=== PATIENT | female | born 1955 | race Caucasian/White ===

== ENCOUNTER 2024-01-24 11:21 | Outpatient (REF) | payer MEDICARE, MEDICAID, SELFPAY | END 2024-01-24 11:22 | disposition home or self-care (01) | LOC: HO.LAB 11:21 | PROVIDERS: PCP Physician Assistant Medical; Visit Provider Nurse Practitioner Family | DX: N39.0 Urinary tract infection, site not specified (principal); R32 Unspecified urinary incontinence; R39.9 Unspecified symptoms and signs involving the genitourinary system | CPT/HCPCS: 51798; 81003; 87086; 99202 ==

== ENCOUNTER 2024-01-24 11:21 | Outpatient (AMB) | payer MEDICARE, MEDICAID, SELFPAY ==
--- NOTE | 2024-01-24 11:24 | A.OFFVIS_ITS ---
Intake Intake Visit Reasons: mixed incontinence Intake Note: NEW Patient presents today to established treatment for: Mixed Incontinence Meds- Mirbetriq Allergies to Antibiotic- No Known Allergies Blood Thinner- None Post Void Residual: 60ml Patient Symptoms: Patient stated she had a mesh sling about 10 years ago. 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 Page. She has a past medical history of hyperlipidemia, schizophrenia, atopic dermatitis, anemia, obesity, type 2 diabetes, GERD, hypertension, Alzheimer's, and major neurocognitive disorder. She presents to the office today as a new patient to establish urology care. She discusses having followed up with a urologist out in [place] however has recently moved to [place] at the [facility] and would like to establish urology care here in [place]. In review of patient's MAR it appears patient is on 25 mg of Myrbetriq daily however in discussion with the patient today she is unsure as to how long she has been on this medication. She reports initially starting medication due to lower urinary tract symptoms of urinary urgency and frequency. She currently denies any bothersome urinary issues or concerns. In office urinalysis results reviewed with the patient today 2+ leukocytes negative nitrates PVR 60 mL. She currently denies any UTI like symptoms. She denies urinary urgency, urinary frequency, incontinence, nocturia, hematuria, dysuria, foul smelling urine, changes to urinary stream, flank pain, fever, and or chills. She is happy with her current voiding parameters. Discussed at length potential causes for lower urinary tract symptoms. Discussed affects of diabetes on the bladder. She otherwise offers offers no other issues or concerns at this time. [facility] Medical History Hyperlipidemia Schizophreniform disorder Atopic dermatitis Anemia Obesity Type 2 diabetes mellitus Gastroesophageal reflux disease without esophagitis Primary hypertension Alzheimer's dementia Major neurocognitive disorder Review of Systems Const Reports no additional complaints Physical Exam Const General: cooperative, comfortable, no acute distress, well developed, alert and awake Nutritional Appearance: overweight Orientation/consciousness: patient oriented x3 Limitations: no limitations HEENT Head: Yes normal to inspection, Yes normocephalic and Yes atraumatic Ears: hearing grossly normal bilaterally Eyes General: appearance normal, both eyes and all related structures Neck Neck: Yes normal visual inspection and Yes trachea midline Chest Chest palpation & inspection: normal inspection of the chest Resp Effort & Inspection: normal respiratory effort and able to speak in complete sentences Cardio Rate: regular rate GI Inspection: Yes normal to inspection General: Yes no CVA tenderness Back/Spine/Pelvis Back: no CVA tenderness Skin General skin exam: no rashes or lesions noted Neuro General: patient oriented x3 Extrem General: Yes normal to inspection Psych Appearance: grossly normal and well kempt Mental Status: other (Patient slow to respond at times) Speech and movement: Clear speech present Affect: normal affect Attitude: cooperative Thought process: Normal thought process present Thought content: Normal thought content present Insight: Fair insight present (Psych) Judgement: Fair judgement present (Psych) Office Procedures Post Void Residual Post Residual Void Post Void Residual (PVR): 60 [id number]-[id number] Void Residual by ultrasound Results AMB Urinalysis, Automated UA Leukoctes 125 Dari/uL Last Edit by Estee Riley CMA on 01/24/24 11:44 UA Nitrite Negative Last Edit by Estee Riley CMA on 01/24/24 11: 44 UA Urobilinogen 0.2 mg/dL Last Edit by Estee Riley CMA on 4 11:44 UA Protein 30 mg/dL Last Edit by Estee Riley CMA on 01/24/24 11:4 4 UA pH 6.0 Last Edit by Estee Riley CMA on 01/24/24 11:44 UA Blood 0 Bennett/uL Last Edit by Estee Riley CMA on 01/24/24 11:44 UA Specific Wells 1.025 Last Edit by Estee Riley CMA on 11:44 UA Ketone Negative Last Edit by Estee Riley CMA on 01/24/24 11:4 4 UA Bilirubin 0 mg/dL Last Edit by Estee Riley CMA on 01/24/24 11: 44 UA Glucose 500 mg/dL Last Edit by Estee Riley CMA on 01/24/24 11: 44 Results Reviewed Results Reviewed: Laboratory Last Values Urine pH (Auto) 6.0 01/24/24 11:42 Specific Wells (Auto) 1.025 01/24/24 11:42 Urine Protein (Auto) 30 mg/dL 01/24/24 11:42 Glucose (UA)(Auto) 500 mg/dL 01/24/24 11:42 Urine Ketones (Auto) Negative 01/24/24 11:42 Urine Blood (Auto) 0 Bennett/uL 01/24/24 11:42 Urine Nitrite (Auto) Negative 01/24/24 11:42 Urine Bilirubin (Auto) 0 mg/dL 01/24/24 11:42 Urine Urobilinogen (Auto) 0.2 mg/dL 01/24/24 11:42 Leukocyte Esterase (Auto) 125 Dari/uL 01/24/24 11:42 Assessment & Plan Assessment & Plan (1) Lower urinary tract symptoms: Code(s): R39.9 - Unspecified symptoms and signs involving the genitourinary system Plan In office urinalysis results reviewed with the patient today; as noted above; will send for urine culture PVR 60 mL. Patient currently denies any bothersome urinary issues or concerns. Patient reports be happy with current voiding parameters at this time on 25 mg of Myrbetriq; will continue. Discussed obtaining retroperitoneal ultrasound for further assessment evaluation. Discussed at length potential causes for lower urinary tract symptoms. Discussed and stressed the importance of managing diabetes for improvement in lower urinary tract symptoms as well as overall health and well-being. Will attempt to obtain previous urology records for continuity of care. Follow-up in 3 months with imaging to be completed prior and PVR at next office visit; or sooner with any issues, concerns, and or questions. Orders: Orders Urine Culture Today N39.0 - Urinary tract infection, site not specified US retroperitoneal comp Today R39.9 - Unspecified symptoms and signs involving the genitourinary system AMB Urinalysis Automated Today R33.9 - Retention of urine, unspecified AMB Post Void Residual by ultrasound Today R33.9 - Retention of urine, unspecified Patient Instructions: The patient had an opportunity to ask questions regarding the treatment plan. All questions were answered. Physical exam, labs, and imaging were discussed and reviewed in detail. As well as risks, benefits, and discussion of treatment choices. No major barriers to understanding were identified. The patient expressed understanding and agreement with the above treatment plan. The patient was made aware they should contact our office by phone for worsening of their current condition, the appearance of new symptoms, or with any questions or concerns. Compliance is encouraged with any medications and follow up testing that is ordered. It is a privilege to be allowed the opportunity to participate in? your urological care.? Again, if you have any questions or concerns If you have any questions or concerns please do not hesitate to contact me. The office is [phone]. This note is constructed using voice recognition software. While every effort has been made to ensure accuracy title i assistant errors may have been included. Yours sincerely, NYDIA Jones Coding Level of Care Code New Pt Level 4 (96555) Diagnoses Lower urinary tract symptoms R39.9 CPT Codes Post Residual Void - PVR CPT Code: 93859-Kaeg Void Residual by ultrasound ([id number]) Time Spent (min) 30
== END 2024-01-24 12:03 | disposition home or self-care (01) ==
PROVIDERS: PCP Physician Assistant Medical; Visit Provider Nurse Practitioner Family
DX: R39.9 Unspecified symptoms and signs involving the genitourinary system (principal)
CPT/HCPCS: 99204

== ENCOUNTER 2024-04-05 09:48 | Outpatient (REF) | payer MEDICARE, MEDICAID, SELFPAY ==
--- NOTE | ~2024-04-05 | US_ITS ---
EXAMINATION: US RETROPERITONEAL COMPLETE (RENAL) CLINICAL INFORMATION: Lower urinary tract symptoms. COMPARISON: None available. TECHNIQUE: Real-time imaging of the kidneys and bladder. FINDINGS: RIGHT KIDNEY: 10.2 x 4.8 x 5.0 cm (SAG x AP x TRV). The kidney is normal in size, contour, and echogenicity. Renal cortical thickness is normal. No renal calculi or hydronephrosis. A benign mid renal 2.6 cm Bosniak class I renal cyst is noted which requires no additional imaging or follow up. No solid renal masses are seen. LEFT KIDNEY: 10.7 x 5.6 x 3.7 cm (SAG x AP x TRV). The kidney is normal in size, contour, and echogenicity. Renal cortical thickness is normal. No calculi or focal parenchymal lesions. No hydronephrosis. BLADDER: Well distended and normal. Bilateral ureteral jets are demonstrated. Prevoid bladder volume is 621 mL. Postvoid bladder volume is 126 mL. Incidental note made of an echogenic liver consistent with hepatic steatosis. US/US retroperitoneal comp IMPRESSION: 1. Large postvoid residual. 2. Incidentally noted hepatic steatosis.
== END 2024-04-05 09:49 | disposition home or self-care (01) ==
LOC: HO.US 09:48
PROVIDERS: PCP Physician Assistant Medical; Visit Provider Nurse Practitioner Family
DX: R39.9 Unspecified symptoms and signs involving the genitourinary system (principal)
CPT/HCPCS: 76770

== ENCOUNTER 2024-04-24 09:28 | Outpatient (AMB) | payer MEDICARE, MEDICAID, SELFPAY ==
--- NOTE | 2024-04-24 10:21 | A.OFFVIS_ITS ---
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 Page. She has a past medical history of hyperlipidemia, schizophrenia, atopic dermatitis, anemia, obesity, type 2 diabetes, GERD, hypertension, Alzheimer's, and major neurocognitive disorder. She presents to the office today for follow- up. Of note, patient was seen approximately 3 months ago as a new patient to establish urology care at which time a retroperitoneal ultrasound was ordered for further assessment evaluation. These results were reviewed with the patient today. Bilateral kidneys with no renal calculi or hydronephrosis noted. Right kidney with benign mid 2.6 cm Bosniak class 1 renal cyst which requires no imaging follow up per radiology report. The bladder is well distended and normal. Bladder jets are demonstrated. Pre void bladder volume is approximately 620 mL. Postvoid bladder volume is approximately 130 mL. In discussion with the patient today she reports to be doing and feeling well. She reports to be happy with her current voiding parameters on 25 mg of Myrbetriq. She reports previously she had been experiencing lower urinary tract symptoms of urinary urgency and frequency however feels she has had no bothersome urinary issues since her last office visit here 3 months ago. When asked she denies urinary urgency, urinary frequency, incontinence, nocturia, hematuria, dysuria, foul smelling urine, changes to urinary stream, flank pain, fever, and or chills. In office urinalysis results reviewed with the patient today. PVR 0 mL. She is happy with her current voiding parameters. Discussed affects of diabetes on the bladder/lower urinary tract symptoms and overall health and well-being. She otherwise offers offers no other issues or concerns at this time. [facility] Medical History Hyperlipidemia Schizophreniform disorder Atopic dermatitis Anemia Obesity Type 2 diabetes mellitus Gastroesophageal reflux disease without esophagitis Primary hypertension Alzheimer's dementia Major neurocognitive disorder Review of Systems Const Reports no additional complaints Eyes Reports no additional complaints ENT Reports no additional complaints Card Reports as per HPI Resp Reports no additional complaints GI Reports as per HPI Reports as per HPI Musc Reports no additional complaints Skin/Breast Reports as per HPI Neuro Reports as per HPI Psych Reports as per HPI Endo Reports as per HPI Jimi/Lymph Reports no additional complaints Aller/Immun Reports no additional complaints Office Procedures Post Void Residual Post Residual Void Post Void Residual (PVR): 0 [id number] Void Residual by ultrasound Results AMB Urinalysis, Automated UA Leukoctes 15 Dari/uL Last Edit by María Andrews on 04/24/24 10:44 UA Nitrite Negative Last Edit by María Andrews on 04/24/24 10:44 UA Urobilinogen 0.2 mg/dL Last Edit by María Andrews on 04/24/24 10:44 UA Protein 15 mg/dL Last Edit by YouBeQBlety Andrews on 04/24/24 10:44 UA pH 5.5 Last Edit by María Andrews on 04/24/24 10:44 UA Blood 0 Bennett/uL Last Edit by María Andrews on 04/24/24 10:44 UA Specific [place] 1.030 Last Edit by María Andrews on 04/24/24 10:44 UA Ketone Positive Last Edit by María Andrews on 04/24/24 10:44 UA Bilirubin 0 mg/dL Last Edit by [employer] Andrews on 04/24/24 10:44 UA Glucose 0 mg/dL Last Edit by María Andrews on 04/24/24 10:44 Results Reviewed Results Reviewed: Laboratory Last Values Urine pH (Auto) 5.5 04/24/24 10:43 Specific [place] (Auto) 1.030 04/24/24 10:43 Urine Protein (Auto) 15 mg/dL 04/24/24 10:43 Glucose (UA)(Auto) 0 mg/dL 04/24/24 10:43 Urine Ketones (Auto) Positive 04/24/24 10:43 Urine Blood (Auto) 0 Bennett/uL 04/24/24 10:43 Urine Nitrite (Auto) Negative 04/24/24 10:43 Urine Bilirubin (Auto) 0 mg/dL 04/24/24 10:43 Urine Urobilinogen (Auto) 0.2 mg/dL 04/24/24 10:43 Leukocyte Esterase (Auto) 15 Dari/uL 04/24/24 10:43 Date of Service: 04/05/24 EXAMINATION: US RETROPERITONEAL COMPLETE (RENAL) FINDINGS: RIGHT KIDNEY: 10.2 x 4.8 x 5.0 cm (SAG x AP x TRV). The kidney is normal in size, contour, and echogenicity. Renal cortical thickness is normal. No renal calculi or hydronephrosis. A benign mid renal 2.6 cm Bosniak class I renal cyst is noted which requires no additional imaging or follow up. No solid renal masses are seen. LEFT KIDNEY: 10.7 x 5.6 x 3.7 cm (SAG x AP x TRV). The kidney is normal in size, contour, and echogenicity. Renal cortical thickness is normal. No calculi or focal parenchymal lesions. No hydronephrosis. BLADDER: Well distended and normal. Bilateral ureteral jets are demonstrated. Prevoid bladder volume is 621 mL. Postvoid bladder volume is 126 mL. Incidental note made of an echogenic liver consistent with hepatic steatosis. IMPRESSION: 1. Large postvoid residual. 2. Incidentally noted hepatic steatosis. Assessment & Plan Assessment & Plan (1) Renal cyst: Code(s): N28.1 - Cyst of kidney, acquired Category: Medical (2) Lower urinary tract symptoms: Code(s): R39.9 - Unspecified symptoms and signs involving the genitourinary system Category: Medical Plan In office urinalysis results reviewed with the patient today; as noted above. PVR 0 mL. Patient reports be happy with current voiding parameters on 25 mg of Myrbetriq; will continue. She currently denies any bothersome urinary issues or concerns. Recent retroperitoneal ultrasound results reviewed with the patient today; as noted above. Discussed potential causes of renal cysts. Will continue with surveillance monitoring of renal cysts Will obtain renal ultrasound in 6 months. Follow-up in 6 months with imaging to be completed prior; or sooner with any issues, concerns, and or questions. Orders: Orders AMB Urinalysis Automated 04/24/24 Z13.9 - Encounter for screening, unspecified US renal BI 6 Months N28.1 - Cyst of kidney, acquired AMB Post Void Residual by ultrasound 04/24/24 R39.9 - Unspecified symptoms and signs involving the genitourinary system Medications: Changed From mirabegron ER 25 mg PO DAILY To mirabegron ER (Myrbetriq) 25 mg PO DAILY 90 tabs 1RF 90 days Patient Instructions: The patient had an opportunity to ask questions regarding the treatment plan. All questions were answered. Physical exam, labs, and imaging were discussed and reviewed in detail. As well as risks, benefits, and discussion of treatment choices. No major barriers to understanding were identified. The patient expressed understanding and agreement with the above treatment plan. The patient was made aware they should contact our office by phone for worsening of their current condition, the appearance of new symptoms, or with any questions or concerns. Compliance is encouraged with any medications and follow up testing that is ordered. It is a privilege to be allowed the opportunity to participate in? your urological care.? Again, if you have any questions or concerns If you have any questions or concerns please do not hesitate to contact me. The office is [phone]. This note is constructed using voice recognition software. While every effort has been made to ensure accuracy configuration management advisor errors may have been included. Yours sincerely, NYDIA Jones Coding Level of Care Code Est Pt Level 3 (97699) Diagnoses Renal cyst N28.1 Lower urinary tract symptoms R39.9 CPT Codes Post Residual Void - PVR CPT Code: 09405-Irou Void Residual by ultrasound ([id number])
== END 2024-04-24 11:18 | disposition home or self-care (01) ==
PROVIDERS: PCP Physician Assistant Medical; Visit Provider Nurse Practitioner Family
DX: N28.1 Cyst of kidney, acquired (principal); R39.9 Unspecified symptoms and signs involving the genitourinary system
CPT/HCPCS: 99213

== ENCOUNTER → 2024-04-24 09:28 | Outpatient (BNVA) | payer MEDICARE, MEDICAID, SELFPAY | PROVIDERS: PCP Physician Assistant Medical; Visit Provider Nurse Practitioner Family | DX: N28.1 Cyst of kidney, acquired (principal); R39.9 Unspecified symptoms and signs involving the genitourinary system | CPT/HCPCS: 51798; 81003; 99212 ==

== ENCOUNTER 2024-09-01 11:56 | Emergency (ER) | payer MEDICARE, MEDICAID, SELFPAY ==
--- NOTE | ~2024-09-01 | CT_ITS ---
EXAMINATION: CT ABDOMEN AND PELVIS WITH CONTRAST CLINICAL INFORMATION: Abdominal pain. Nausea, vomiting, diarrhea. Elevated lipase. COMPARISON: Retroperitoneal ultrasound dated 04/05/2024. TECHNIQUE: Multidetector volumetric images were obtained from the superior aspect of the liver through the pubic symphysis following administration 85 mL of Omnipaque 350 intravenous contrast. Immediate and delayed postcontrast images were obtained. Sagittal and coronal reformatted images were obtained on the technologist's workstation. Oral contrast: No This CT examination was performed using dose optimization techniques as appropriate, variously including the following: *Automated exposure control *Adjustment of mA and/or kV according to patient size (this includes techniques or standardized protocols for targeted exams where dose is matched to indication/reason for exam; i.e. extremities or head) *Use of iterative reconstruction technique DLP: 882 mGy-cm FINDINGS: LUNG BASES: The visualized lung bases are unremarkable. LIVER, GALLBLADDER, AND BILIARY TREE: The liver is normal in size and shape. Parenchymal hypoattenuation, consistent with steatosis. No focal hepatic lesion or biliary ductal dilatation is present. The gallbladder is unremarkable with no evidence of radiopaque gallstones, gallbladder wall thickening, or obvious pericholecystic inflammatory changes. PANCREAS: Mild pancreatic atrophy. No inflammatory change or evidence of acute pancreatitis. No ductal dilatation or pancreatic parenchymal mass. SPLEEN: Unremarkable. ADRENAL GLANDS: Unremarkable. KIDNEYS AND URETERS: The kidneys are normal in size, shape, and attenuation. No hydronephrosis, hydroureter, or calculi seen. Simple right lower pole renal cysts, unchanged when compared to the prior ultrasound. Findings are not clinically significant and no dedicated follow-up imaging is recommended. No perinephric stranding. Normal nephrograms on delayed imaging without proximal ureteral obstruction. BLADDER: Unremarkable. GASTROINTESTINAL TRACT: Small, sliding hiatal hernia. No small or large bowel obstruction. No bowel wall thickening or inflammatory change. Diverticulosis without evidence of acute diverticulitis. Unremarkable appendix. PERITONEAL CAVITY: No intra-abdominal free air or free fluid. No intra-abdominal mass or organized fluid collection/abscess formation. ABDOMINAL WALL: No significant hernia is appreciated. LYMPH NODES: No lymphadenopathy. VASCULAR: No abdominal aortic dilatation or dissection. Atherosclerotic calcifications. PELVIC VISCERA: The uterus and adnexa are unremarkable. OSSEOUS STRUCTURES: Unremarkable. CT/CT abdomen pelvis w IV con IMPRESSION: 1. Hepatic steatosis. No hepatic parenchymal lesion or biliary ductal dilatation. 2. Mild pancreatic atrophy. No evidence of acute pancreatitis. No pancreatic parenchymal lesion or ductal dilatation. 3. Small, sliding hiatal hernia. Diverticulosis without evidence of acute diverticulitis. No small or large bowel obstruction. Unremarkable appendix. 4. No intra-abdominal mass, lymphadenopathy, or ascites. Fleischner guidelines were followed. Electronically signed by: Zaki Wells MD 09/01/2024 03:36 PM [facility]
--- NOTE | ~2024-09-01 | XR_ITS ---
EXAMINATION: XR CHEST CLINICAL INFORMATION: Pneumonia. COMPARISON: None available. TECHNIQUE: Frontal view of the chest was obtained. FINDINGS: The lungs are clear. The cardiomediastinal silhouette is normal in size. There is no pleural effusion or pneumothorax. No acute osseous abnormality. XR/XR chest 1V IMPRESSION: No acute cardiopulmonary findings. Electronically signed by: Zaki Wells MD 09/01/2024 03:32 PM [facility]
[2024-09-01 12:10] VITALS: BP 163/81; BP 190/100; PULSE 119; PULSE 128; RESP 16; TEMP 36.4; O2SAT 92; O2SAT 96; BMI 33.1
[2024-09-01 12:17] VITALS: BP 163/81; PULSE 119; RESP 16; TEMP 36.4; O2SAT 92
--- NOTE | 2024-09-01 12:22 | ED.ABDPAIN ---
HPI - Abdominal Pain General Chief Complaint: Abdominal Pain Stated Complaint: ABD PAIN,HIGH BP 190/100,NO AM MEDS D/T VOMITING Time Seen by Provider: 09/01/24 11:57 Source: patient, EMS and old records reviewed Mode of arrival: EMS Limitations: no limitations History of Present Illness ED Provider: NAJMA QUICK narrative: 68 yo female with PMH of DM2, dementia and delusions, schizophrenia, UTI, HTN who presents with c/o resolved abdominal pain this AM with n/v/d. She denies sick contacts or food exposures. She denies recent abx use she states she has had this on and off for 1 year and blames trulicity. She states her symptoms have resolved and she is feeling better at this time. MD elicited complaint: abdominal pain Pertinent past history: other Onset (ago): day(s) (this AM) Pain Consistency: now resolved Location: other (lower abdomen) Severity: mild Quality: aching Radiation: none Migration to: no migration Exacerbating factors: nothing Relieving factors: nothing Context: history of similar episodes Associated symptoms: nausea, vomiting and diarrhea Related Data Home Medications ?Medication ?Instructions ?Recorded ?Confirmed aripiprazole 10 mg tablet 10 mg PO DAILY 01/17/24 04/24/24 carbidopa 25 mg-levodopa 100 mg 1 tab PO TID 01/17/24 04/24/24 tablet dulaglutide 0.75 mg/0.5 mL mg subcut 01/17/24 04/24/24 subcutaneous pen injector (Trulicity) ibuprofen 600 mg tablet 600 mg PO TID 01/17/24 04/24/24 lisinopril 10 mg tablet 10 mg PO DAILY 01/17/24 04/24/24 lorazepam 0.5 mg tablet mg PO 01/17/24 04/24/24 memantine 10 mg tablet 10 mg PO BID 01/17/24 04/24/24 metformin 500 mg tablet,extended 500 mg PO TID 01/17/24 04/24/24 release 24 hr simvastatin 20 mg tablet 20 mg PO BEDTIME 01/17/24 04/24/24 Previous Rx's ?Medication ?Instructions ?Recorded mirabegron 25 mg tablet,extended 25 mg PO DAILY 90 days #90 tabs 04/24/24 release 24 hr (Myrbetriq) Allergies Allergy/AdvReac Type Severity Reaction Status Date / Time No Known Allergies Allergy Verified 09/01/24 12:14 Review of Systems Review of Systems Constitutional : No Weight loss, No Fever, No Chills ENT/Mouth : No sore throat, No Rhinorrhea Eyes: No Swelling, No Redness Cardiovascular : No Chest Pain, No SOB, NoEdema Respiratory : No Cough, No Sputum, No Wheezing Gastrointestinal : Positive Nausea, Positive Vomiting, positive Diarrhea, positive abdominal Pain, No Hematochezia, No Melena Genitourinary : No Dysuria, No Urinary Frequency, No Hematuria, No Urgency Musculoskeletal : No joint pain, No Myalgias, No Joint Swelling Skin : No Skin Lesions, No rash Neuro : No Weakness, No Numbness, No Dizziness, No Headache Psych : No Anxiety/Panic, No Depression All other systems reviewed and are negative. [facility] Past Medical History Attestation statement: The following information was validated with the patient. Source: old records reviewed Medical History Hyperlipidemia Schizophreniform disorder Atopic dermatitis Anemia Obesity Type 2 diabetes mellitus Gastroesophageal reflux disease without esophagitis Primary hypertension Alzheimer's dementia Major neurocognitive disorder Social History Social History Smoked in Last 30 Days: No Use of substances other than those prescribed or required for medical reasons: No Advance Directives: No Advance Directives Information Provided: No Do you have a plan to hurt others: No Plan Physical Exam ED Vital Signs: Vital Signs - 24 hr 09/01/24 12:10 09/01/24 12:17 Temperature 97.5 F 97.5 F Pulse Rate 119 H 119 H Respiratory Rate 16 16 Blood Pressure 163/81 H 163/81 H Pulse Oximetry 92 92 Oxygen Delivery Method Room Air Room Air BMI result Body Mass Index 33.1 Appearance: Alert. Oriented X3. No acute distress. Eyes: Pupils equal, round and reactive to light. ENT: Pharynx normal. Neck: Normal inspection. Neck supple. CVS: Normal heart rate and rhythm. Pulses normal. Respiratory: No respiratory distress. Breath sounds normal. Abdomen: Soft and non-tender. Skin: Skin warm and dry. Normal skin color. Normal skin turgor. Extremities: No lower extremity edema. No calf ttp Neuro: Oriented X 3. No motor deficit. No sensory deficit. Course Course Course Narrative: asymptomatic tachycardia and lower O2 ddimer and UA ordered signed out to Peter DE JESUS pending results if negative DC home Medical Decision Making Medical Decision Making [facility] Narrative: 68 yo female with PMH of DM2, dementia and delusions, schizophrenia, UTI, HTN she is alert and oriented x 3 she tells me for one year on and off abdominal pain then n/v/d - she reports the same thing happened this AM. She notes she feels fine now has no pain on exam I think given the presentation though symptoms resolved and she has no ttp on exam I am going to obtain basic labs and UA. Differential Diagnosis Differential Diagnoses: The differential diagnosis associated with the presentation includes enteritis, acute UTI, viral syndrome Admission/Observation Consideration of admission/observation: Escalation of care including admission/observation considered labs stable, CXR and CT scan normal just low magnesium - Lab Data [facility] Lab Attestation statement: I reviewed the patient's lab results. 09/01/24 12:23 09/01/24 12:23 Labs: Lab Results 09/01/24 Range/Units 12:23 WBC 13.0 H (4.8-10.8) X10*3/uL RBC 4.57 (4.20-5.50) X10*6/uL Hgb 13.6 (12.0-16.0) g/dl Hct 40.7 (37.0-47.0) % MCV 89.1 (80.0-98.0) fL MCH 29.8 (27.0-33.0) pg MCHC 33.4 (31.0-35.0) g/dl RDW 12.5 (11.0-16.0) % Plt Count 317 (160-400) X10*3/uL MPV 9.0 L (9.4-12.3) fL Immature Gran % (Auto) 0.5 H (0.0-0.4) % Neut % (Auto) 89.2 H (45-73) % Lymph % (Auto) 4.4 L (20-40) % [place] % (Auto) 4.8 (2-11) % Eos % (Auto) 0.8 (0-4) % Baso % (Auto) 0.3 (0-2) % Lymph # (Auto) 0.6 L (1.2-4.9) X10*3/uL [place] # (Auto) 0.6 (0.1-1.2) X10*3/uL Eos # (Auto) 0.1 (0.0-0.4) X10*3/uL Baso # (Auto) 0.0 (0.0-0.2) X10*3/uL Abs Immat Gran (auto) 0.07 H (0.00-0.03) X10*3/uL Absolute Neuts (auto) 11.6 H (2.0-8.3) x10*3/uL Absolute Nucleated RBC 0.000 (0.0-0.012) X10*3/uL Nucleated RBC % (auto) 0.0 (0.0-0.2) /100WBC Sodium 140 (135-145) mmol/L Potassium 4.5 (3.3-5.1) mmol/L Chloride 104 (96-108) mmol/L Carbon Dioxide 24 (22-29) mmol/L Anion Gap 17 (12-20) BUN 12 (9-16) mg/dL Creatinine 0.75 (0.5-1.4) mg/dL Estim Creat Clear Calc 70.4 Estimated GFR > 60 Random Glucose 241 H (60-115) mg/dL Calcium 9.4 (8.4-10.2) mg/dL Magnesium 1.4 L* (1.6-2.6) mg/dL Total Bilirubin 0.9 (0.0-1.0) mg/dL Direct Bilirubin 0.3 (0.0-0.5) mg/dL AST 24 (5-31) U/L ALT 27 (0-31) U/L Alkaline Phosphatase 110 (39-117) U/L Total Protein 7.2 (6.5-8.0) g/dL Albumin 4.5 (3.5-5.0) g/dL Lipase 92 H (8-78) U/L Independent Interpretation I performed an independent interpretation of an: EKG, Plain X-Ray (normal ) and CT Scan (no acute findings at this time) Interpretation: Rate: 125 Rhythm: sinus tachycardia Turner: left Normal P waves. Normal MISSY. Normal QRS complex. ST T wave : normal no OFELIA qTC: 421 prior studies: The study has been interpreted contemporaneously by me. . Radiology Impression Discussion of test interpretation with radiology: I have reviewed the radiologist's reading. Independent Historian Clinical information obtained from an independent historian. History obtained from or confirmed by: EMS External Record Review External record reviewed: Outpatient record Medications Administered Discontinued Medications Generic Name Dose Route Start Last Admin Trade Name Isabelle PRN Reason Stop Dose Admin Acetaminophen 650 mg 09/01/24 13:31 09/01/24 13:56 Acetaminophen 325 Mg Tablet PO 09/01/24 13:32 650 mg ONCE ONE Administration Magnesium Sulfate 2 gm in 50 mls @ 25 mls/hr 09/01/24 13:01 09/01/24 16:08 Magnesium Sulfate/H2o IV 09/01/24 15:00 Infused ONCE ONE Infusion Lactated Ringer's 1,000 mls @ 999 mls/hr 09/01/24 13:31 09/01/24 16:08 Lr IV 09/01/24 14:31 Infused .Q1H1M ONE Infusion Iohexol 100 ml 09/01/24 14:39 09/01/24 14:39 Iohexol 350 Mg/Ml 100 Ml Infus..Btl IV 09/01/24 14:40 85 ml ONCE ONE Administration Ondansetron HCl 4 mg 09/01/24 12:13 09/01/24 12:43 Ondansetron Odt 4 Mg Tab.Rapdis TRANSLINGU 09/01/24 12:14 4 mg ONCE ONE Administration Discharge Plan Discharge Clinical Impression: Hypomagnesemia Patient Disposition: Home, Self-Care Instructions: Hypomagnesemia (ED) Additional Instructions: other than low magnesium - which we repleted labs normal chest xray normal CT Scan no acute findings to explain symptoms stay hydrated, rest and return for any worsening symptoms or concerns. CT/CT abdomen pelvis w IV con IMPRESSION: 1. Hepatic steatosis. No hepatic parenchymal lesion or biliary ductal dilatation. 2. Mild pancreatic atrophy. No evidence of acute pancreatitis. No pancreatic parenchymal lesion or ductal dilatation. 3. Small, sliding hiatal hernia. Diverticulosis without evidence of acute diverticulitis. No small or large bowel obstruction. Unremarkable appendix. 4. No intra-abdominal mass, lymphadenopathy, or ascites. Prescriptions: No Action aripiprazole 10 mg tablet 10 mg PO DAILY lorazepam 0.5 mg tablet PO memantine 10 mg tablet 10 mg PO BID metformin 500 mg tablet extended release 24 hr 500 mg PO TID lisinopril 10 mg tablet 10 mg PO DAILY simvastatin 20 mg tablet 20 mg PO BEDTIME carbidopa-levodopa 25-100 mg tablet 1 tab PO TID Trulicity 0.75 mg/0.5 mL pen injector subcut ibuprofen 600 mg tablet 600 mg PO TID Myrbetriq 25 mg tablet extended release 24 hr 25 mg PO DAILY 90 Days Qty: 90 1RF Print Language: Lao
[2024-09-01 12:27] LABS: MANUAL DIFF FLAG NO
[2024-09-01 12:31] LABS: Basophils Percent Auto 0.3 % (0-2); Eosinophils Absolute Auto 0.1 X10*3/uL (0.0-0.4); Eosinophils Percent Auto 0.8 % (0-4); Hematocrit 40.7 % (37.0-47.0); Hemoglobin 13.6 g/dl (12.0-16.0); Imm Gran Abs Auto 0.07 X10*3/uL (0.00-0.03); Imm Gran Pct Auto 0.5 % (0.0-0.4); Lymphocytes Absolute Auto 0.6 X10*3/uL (1.2-4.9); Lymphocytes Percent Auto 4.4 % (20-40); Mean Corpuscular HGB Conc 33.4 g/dl (31.0-35.0); Mean Corpuscular Hemoglobin 29.8 pg (27.0-33.0); Mean Corpuscular Volume 89.1 fL (80.0-98.0); Monocytes Absolute Auto 0.6 X10*3/uL (0.1-1.2); Monocytes Percent Auto 4.8 % (2-11); Neutrophils Absolute Auto 11.6 x10*3/uL (2.0-8.3); Neutrophils Percent Auto 89.2 % (45-73); Platelet Count 317 X10*3/uL (160-400); Red Blood Count 4.57 X10*6/uL (4.20-5.50); Red Cell Distribution Width 12.5 % (11.0-16.0)
[2024-09-01] MEDS: Ondansetron ODT 4 MG TAB.RAPDIS TRANSLINGU (12:43)
[2024-09-01 13:00] LABS: Alanine Aminotransferase 27 U/L (0-31); Albumin Level 4.5 g/dL (3.5-5.0); Alkaline Phosphatase 110 U/L (39-117); Anion Gap 17 (12-20); Aspartate Amino Transferase 24 U/L (5-31); Bilirubin Direct 0.3 mg/dL (0.0-0.5); Bilirubin Total 0.9 mg/dL (0.0-1.0); Blood Urea Nitrogen 12 mg/dL (9-16); Calcium 9.4 mg/dL (8.4-10.2); Carbon Dioxide 24 mmol/L (22-29); Chloride 104 mmol/L (96-108); Creatinine Clr Calc Pharmacy 70.4; Estimated Glomerular Filt Rate > 60; Glucose Random 241 mg/dL (60-115); Lipase 92 U/L (8-78); Magnesium 1.4 mg/dL (1.6-2.6); Potassium 4.5 mmol/L (3.3-5.1); Sodium 140 mmol/L (135-145); Total Protein 7.2 g/dL (6.5-8.0)
--- NOTE | 2024-09-01 13:01 | ECG_ITS ---
Test Reason : ABD PAIN Blood Pressure : / mmHG Vent. Rate : 125 BPM Atrial Rate : 125 BPM P-R Int : 150 ms QRS Dur : 068 ms QT Int : 292 ms P-R-T Axes : 058 -08 044 degrees QTc Int : 421 ms Sinus tachycardia Low voltage QRS Cannot rule out Anterior infarct , age undetermined Abnormal ECG No previous ECGs available Referred By: Lizzie Cruz Electronically Signed By:Dale Silva
[2024-09-01] MEDS: Lactated Ringers 1,000 ML 999 ML IV (13:53)
[2024-09-01] MEDS: Magnesium Sulfate/H2O 2 GM/50 ML PIGGYBACK IV (13:55)
[2024-09-01] MEDS: Acetaminophen 325 MG TABLET 650 MG PO (13:56)
[2024-09-01] MEDS: iohexoL 350 MG/ML 100 ML INFUS..BTL IV (14:39)
[2024-09-01 16:14] LABS: Appearance Urine Clear; Color Urine Yellow; Glucose Urine UA Negative (Negative); Leukocyte Esterase Urine Small (1+) (Negative); Nitrite Urine Negative (Negative); PH 5.5 (5.0-9.0); Specific Gravity - Urine >= 1.030 (1.005-1.025); UMIC TRIGGER UACC YES; Urine Blood Negative (Negative); Urine Ketones Trace mg/dL (Negative); Urine Protein Negative (Neg-Trace)
[2024-09-01 16:25] VITALS: BP 112/66; PULSE 113; RESP 17; TEMP 37.1; O2SAT 93
[2024-09-01 16:51] LABS: Bacteria Urine 3+ (None Seen); Hyaline Casts Urine 0-2 /LPF (0-2); RBC Urine 0-2 /HPF (0-2); UACC Culture Trigger YES; WBC Urine 21-50 /HPF (0-5)
[2024-09-01 17:08] LABS: D Dimer High Sensitivity 183 NG/ML
[2024-09-01 18:30] VITALS: BP 104/67; PULSE 99; RESP 16; TEMP 36.9; O2SAT 91
[2024-09-01] MEDS: cefuroxime axetiL 250 MG TABLET PO (19:22)
[2024-09-01 19:23] VITALS: BP 101/63; PULSE 101; RESP 20; TEMP 36.7; O2SAT 92
[2024-09-01 19:31] VITALS: BP 101/63; PULSE 101; RESP 20; TEMP 36.7; O2SAT 92
== END 2024-09-01 21:11 | disposition home or self-care (01) ==
PROVIDERS: Emergency Provider Emergency Medicine
DX: E83.42 Hypomagnesemia (principal); R10.30 Lower abdominal pain, unspecified; E11.9 Type 2 diabetes mellitus without complications; I10 Essential (primary) hypertension; E78.5 Hyperlipidemia, unspecified; Z79.02 Long term (current) use of antithrombotics/antiplatelets; Z79.85 Long-term (current) use of injectable non-insulin antidiabetic drugs; Z79.899 Other long term (current) drug therapy
CPT/HCPCS: 36415; 71045; 74177; 80048; 80076; 81001; 83690; 83735; 85025; 85379; 87086; 93005; 96361; 96365; 96366; 99285; J3475; J7120; Q9967

== ENCOUNTER → 2024-09-01 13:01 | Outpatient (BNV) | payer MEDICARE, MEDICAID, SELFPAY | PROVIDERS: Emergency Provider Emergency Medicine; Visit Provider Internal Medicine Cardiovascular Disease | DX: R00.0 Tachycardia, unspecified (principal) | CPT/HCPCS: 93010 ==

== ENCOUNTER 2024-10-03 02:51 | Inpatient (IN) | payer MEDICARE, MEDICAID, SELFPAY ==
[2024-10-03] VITALS (12 sets, daily range): BP systolic 130–182; BP diastolic 61–86; PULSE 106–121; RESP 16–31; TEMP 36.2–37.6; O2SAT 88–97; BMI 33.0; BMI 34.2
--- NOTE | 2024-10-03 | ECG_ITS ---
Test Reason : CHEST TIGHTNESS Blood Pressure : / mmHG Vent. Rate : 110 BPM Atrial Rate : 000 BPM P-R Int : 000 ms QRS Dur : 072 ms QT Int : 336 ms P-R-T Axes : 000 003 065 degrees QTc Int : 454 ms Artifact in tracing Normal sinus rhythm Nonspecific ST and T wave abnormality Abnormal ECG When compared with ECG of 01-SEP-2024 13:25, No significant changes seen Referred By: Generic ED Physician Electronically Signed By:CHANTE FORD
--- NOTE | ~2024-10-03 | XR_ITS ---
EXAMINATION: XR CHEST CLINICAL INFORMATION: cough chest tightness wheezing COMPARISON: September 01, 2024. TECHNIQUE: 2 views of the chest were obtained. FINDINGS: No significant abnormality is noted involving the heart, lungs, mediastinum, bony thorax or soft tissues. XR/XR chest 2V IMPRESSION: Unremarkable examination. Electronically signed by: Alexandru Bravo MD 10/03/2024 05:48 AM [facility]
--- NOTE | ~2024-10-03 | XR_ITS ---
EXAMINATION: XR CHEST CLINICAL INFORMATION: left basilar crackles, hypoxia, follow up COMPARISON: 10/03/2024 TECHNIQUE: Frontal view of the chest was obtained. FINDINGS: No focal consolidation, pulmonary edema, or pleural effusion. Stable cardiomediastinal silhouette. XR/XR chest 1V IMPRESSION: No acute cardiopulmonary findings. Electronically signed by: Tang Schroeder MD 10/06/2024 11:00 AM [facility]
[2024-10-03 03:46] LABS: IDNOW Serial# 6674DD1D; Strep A Nucleic Acid Negative (Negative)
[2024-10-03] MEDS: Albuterol Sulfate 2.5 MG, Albuterol/Iprat 2.5/0.5MG 3 ML 3 ML INHALE (03:57)
[2024-10-03 04:15] LABS: Influenza A PCR NEGATIVE (Negative); Influenza B PCR NEGATIVE (Negative); Resp Syncy Virus RNA Qual PCR NEGATIVE (Negative); SARS COV2 PCR INHOUSE NEGATIVE (Negative)
[2024-10-03 04:50] LABS: MANUAL DIFF FLAG NO
[2024-10-03 04:51] LABS: Basophils Percent Auto 0.3 % (0-2); Eosinophils Absolute Auto 0.5 X10*3/uL (0.0-0.4); Eosinophils Percent Auto 3.9 % (0-4); Hematocrit 36.7 % (37.0-47.0); Hemoglobin 12.2 g/dl (12.0-16.0); Imm Gran Abs Auto 0.03 X10*3/uL (0.00-0.03); Imm Gran Pct Auto 0.3 % (0.0-0.4); Lymphocytes Absolute Auto 2.5 X10*3/uL (1.2-4.9); Lymphocytes Percent Auto 21.5 % (20-40); Mean Corpuscular HGB Conc 33.2 g/dl (31.0-35.0); Mean Corpuscular Hemoglobin 29.3 pg (27.0-33.0); Mean Corpuscular Volume 88.2 fL (80.0-98.0); Mean Platelet Volume 8.9 fL (9.4-12.3); Monocytes Absolute Auto 0.8 X10*3/uL (0.1-1.2); Monocytes Percent Auto 6.9 % (2-11); Neutrophils Absolute Auto 7.7 x10*3/uL (2.0-8.3); Neutrophils Percent Auto 67.1 % (45-73); Platelet Count 275 X10*3/uL (160-400); Red Blood Count 4.16 X10*6/uL (4.20-5.50); Red Cell Distribution Width 12.5 % (11.0-16.0); White Blood Count 11.4 X10*3/uL (4.8-10.8)
[2024-10-03 04:52] LABS: Venous Blood Gas Refer to POC result
[2024-10-03 04:53] LABS: VBG Base Excess 2.4 mmol/L; VBG HCO3 28 mmol/L (22-26); VBG pCO2 46 mmHg; VBG pH 7.38 (7.32-7.43); VBG pO2 86 mmHg
[2024-10-03] MEDS: methylPREDNISolone Sod Succ 125 MG/2 ML VIAL IVPUSH (04:57)
[2024-10-03] MEDS: guaiFEN/Codeine SF 200/20/10ML 10 ML LIQUID PO (04:57)
[2024-10-03 05:12] LABS: B Type Natriuretic Peptide < 10 pg/mL (<100)
[2024-10-03 05:13] LABS: Troponin-I High Sensitivity < 2.7 ng/L (<3.5-17.0)
[2024-10-03 05:18] LABS: Alanine Aminotransferase 22 U/L (0-31); Albumin Level 4.3 g/dL (3.5-5.0); Alkaline Phosphatase 106 U/L (39-117); Anion Gap 17 (12-20); Aspartate Amino Transferase 35 U/L (5-31); Bilirubin Total 0.8 mg/dL (0.0-1.0); Blood Urea Nitrogen 10 mg/dL (9-16); Calcium 8.6 mg/dL (8.4-10.2); Carbon Dioxide 24 mmol/L (22-29); Chloride 104 mmol/L (96-108); Creatinine Clr Calc Pharmacy 81.1; Estimated Glomerular Filt Rate > 60; Glucose Random 235 mg/dL (60-115); Lipase 16 U/L (8-78); Magnesium 1.4 mg/dL (1.6-2.6); Sodium 141 mmol/L (135-145); Total Protein 7.1 g/dL (6.5-8.0)
--- NOTE | 2024-10-03 06:07 | ED_ITS ---
HPI - URI/Sore Throat General Chief Complaint: Upper Respiratory Symptoms Stated Complaint: cold symptoms Time Seen by Provider: 10/03/24 04:52 Source: patient Mode of arrival: ambulatory Limitations: no limitations History of Present Illness ED Provider: HPI Narrative: Patient's history of hypertension diabetes , schizophrenia, dementia with delusions comes here with cold symptoms for last 3 days with cough and congestion ,unable to stop coughing specially in the night no history of asthma or COPD patient is noted to have pulse ox of 88% at room air started on nebulizing treatment on 2 L patient is saturating 98% Related Data Home Medications ?Medication ?Instructions ?Recorded ?Confirmed aripiprazole 10 mg tablet 10 mg PO DAILY 01/17/24 04/24/24 carbidopa 25 mg-levodopa 100 mg 1 tab PO TID 01/17/24 04/24/24 tablet dulaglutide 0.75 mg/0.5 mL mg subcut 01/17/24 04/24/24 subcutaneous pen injector (Trulicity) ibuprofen 600 mg tablet 600 mg PO TID 01/17/24 04/24/24 lisinopril 10 mg tablet 10 mg PO DAILY 01/17/24 04/24/24 lorazepam 0.5 mg tablet mg PO 01/17/24 04/24/24 memantine 10 mg tablet 10 mg PO BID 01/17/24 04/24/24 metformin 500 mg tablet,extended 500 mg PO TID 01/17/24 04/24/24 release 24 hr simvastatin 20 mg tablet 20 mg PO BEDTIME 01/17/24 04/24/24 Previous Rx's ?Medication ?Instructions ?Recorded mirabegron 25 mg tablet,extended 25 mg PO DAILY 90 days #90 tabs 04/24/24 release 24 hr (Myrbetriq) cefuroxime axetil 250 mg tablet 250 mg PO BID 7 days #14 tabs 09/01/24 albuterol sulfate 90 mcg/actuation 2 puff inhalation Q6H PRN 10/03/24 aerosol inhaler shortness of breath or wheezing #8.5 grams benzonatate 200 mg capsule 200 mg PO TID PRN cough #20 caps 10/03/24 prednisone 20 mg tablet 40 mg (2 x 20 mg) PO DAILY #10 tabs 10/03/24 Allergies Allergy/AdvReac Type Severity Reaction Status Date / Time No Known Allergies Allergy Verified 10/03/24 03:23 Review of Systems 2 Review of Systems: Yes all other systems are reviewed and are negative [facility] Past Medical History Medical History Hyperlipidemia Schizophreniform disorder Atopic dermatitis Anemia Obesity Type 2 diabetes mellitus Gastroesophageal reflux disease without esophagitis Primary hypertension Alzheimer's dementia Major neurocognitive disorder Physical Exam 2 Vital Signs: Vital Signs: Last Vital Signs Temp 99.7 F 10/03/24 06:19 Pulse 121 H 10/03/24 06:19 Resp 24 H 10/03/24 06:19 BP 153/81 H 10/03/24 06:19 Pulse Ox 88 L 10/03/24 06:45 O2 Del Method Room Air 10/03/24 06:45 O2 Flow Rate 2 10/03/24 06:19 Oxygen Flow Rate 2 10/03/24 05:00 BMI result Body Mass Index 33.0 Appearance: Alert. Oriented X3. No acute distress. Eyes: No pallor or icterus ENT: Pharynx normal. Oral Mucosa moist Neck: Normal inspection. Neck supple. CVS: Normal heart rate and rhythm. Pulses normal. Respiratory: No respiratory distress. Equal air entry bilateral, bilateral wheezing with frequent coughing Abdomen: Soft and nontender. Bowel sounds are present, no mass palpable, no CVA tenderness Skin: Skin warm and dry. Normal skin color. Normal skin turgor. Extremities: No lower extremity edema. No calf tenderness Neuro: Oriented X 3. No motor deficit. Medications Administered Discontinued Medications Generic Name Dose Route Start Last Admin Trade Name Freq PRN Reason Stop Dose Admin Albuterol Sulfate 2.5 mg/ 0 mg 10/03/24 03:52 10/03/24 03:57 Albuterol/Ipratropium 3 ml INHALE 10/03/24 03:53 1 dose ONCE ONE Administration Guaifenesin/Codeine Phosphate 10 ml 10/03/24 04:49 10/03/24 04:57 Guaifen/Codeine Sf 200/20/10ml 10 Ml Liquid PO 10/03/24 04:50 10 ml ONCE ONE Administration Magnesium Sulfate 2 gm in 50 mls @ 150 mls/hr 10/03/24 06:07 10/03/24 06:33 Magnesium Sulfate/H2o IV 10/03/24 06:26 150 mls/hr ONCE ONE Administration Methylprednisolone Sodium Succinate 125 mg 10/03/24 04:48 10/03/24 04:57 Methylprednisolone Sod Succ 125 Mg/2 Ml Vial IVPUSH 10/03/24 04:49 125 mg ONCE ONE Administration Medical Decision Making Medical Decision Making [facility] Narrative: Patient has acute bronchitis responded to nebulizing treatment and steroids chest x-ray negative for infiltrate RSV COVID influenza negative patient's desaturated to 88% at room air no signs of heart failure will give some more nebulizing treatment re-evaluate disposition according to patient improvement Differential Diagnosis Differential Diagnoses: The differential diagnosis associated with the presentation includes Acute bronchitis/pneumonia/atypical viral infection/CHF Lab Data [facility] Lab Attestation statement: I reviewed the patient's lab results. 10/03/24 04:46 10/03/24 04:46 Labs: Lab Results 10/03/24 10/03/24 10/03/24 Range/Units 03:31 04:46 04:48 WBC 11.4 H (4.8-10.8) X10*3/uL RBC 4.16 L (4.20-5.50) X10*6/uL Hgb 12.2 (12.0-16.0) g/dl Hct 36.7 L (37.0-47.0) % MCV 88.2 (80.0-98.0) fL MCH 29.3 (27.0-33.0) pg MCHC 33.2 (31.0-35.0) g/dl RDW 12.5 (11.0-16.0) % Plt Count 275 (160-400) X10*3/uL MPV 8.9 L (9.4-12.3) fL Immature Gran % (Auto) 0.3 (0.0-0.4) % Neut % (Auto) 67.1 (45-73) % Lymph % (Auto) 21.5 (20-40) % [place] % (Auto) 6.9 (2-11) % Eos % (Auto) 3.9 (0-4) % Baso % (Auto) 0.3 (0-2) % Lymph # (Auto) 2.5 (1.2-4.9) X10*3/uL [place] # (Auto) 0.8 (0.1-1.2) X10*3/uL Eos # (Auto) 0.5 H (0.0-0.4) X10*3/uL Baso # (Auto) 0.0 (0.0-0.2) X10*3/uL Abs Immat Gran (auto) 0.03 (0.00-0.03) X10*3/uL Absolute Neuts (auto) 7.7 (2.0-8.3) x10*3/uL Absolute Nucleated RBC 0.000 (0.0-0.012) X10*3/uL Nucleated RBC % (auto) 0.0 (0.0-0.2) /100WBC VBG pH 7.38 (7.32-7.43) VBG pCO2 46 mmHg VBG pO2 86 mmHg VBG HCO3 28 H (22-26) mmol/L VBG O2 Saturation 98.0 % VBG Base Excess 2.4 mmol/L Sodium 141 (135-145) mmol/L Potassium 4.0 (3.3-5.1) mmol/L Chloride 104 (96-108) mmol/L Carbon Dioxide 24 (22-29) mmol/L Anion Gap 17 (12-20) BUN 10 (9-16) mg/dL Creatinine 0.65 (0.5-1.4) mg/dL Estim Creat Clear Calc 81.1 Estimated GFR > 60 Random Glucose 235 H (60-115) mg/dL Calcium 8.6 D (8.4-10.2) mg/dL Magnesium 1.4 L* (1.6-2.6) mg/dL Total Bilirubin 0.8 (0.0-1.0) mg/dL AST 35 H (5-31) U/L ALT 22 (0-31) U/L Alkaline Phosphatase 106 (39-117) U/L Troponin I High Sens < 2.7 (<3.5-17.0) ng/L B-Natriuretic Peptide < 10 (<100) pg/mL Total Protein 7.1 (6.5-8.0) g/dL Albumin 4.3 (3.5-5.0) g/dL Lipase 16 (8-78) U/L Influenza Type A (PCR) NEGATIVE (Negative) Influenza Type B (PCR) NEGATIVE (Negative) RSV RNA Qual (PCR) NEGATIVE (Negative) SARS-CoV-2 RNA (RT-PCR) NEGATIVE (Negative) S. pyogenes GrpA TONY Negative (Negative) Independent Interpretation I performed an independent interpretation of an: Plain X-Ray Radiology Impression Discussion of test interpretation with radiology: I discussed test interpretation with the radiologist Radiologist Impression: [address] [address] XRay Report Signed Patient: Jennifer Mccullough MR#: [id number] : 1955 Acct:[id number] Age/Sex: 68 / F ADM Date: 10/03/24 Loc: HO.ED Attending Dr: Ordering Physician: Geraldo Venegas MD Date of Service: 10/03/24 Procedure(s): XR chest 2V Accession Number(s): [id number] cc: Physician,Unknown ; Geraldo Venegas MD~ EXAMINATION: XR CHEST CLINICAL INFORMATION: cough chest tightness wheezing COMPARISON: September 01, 2024. TECHNIQUE: 2 views of the chest were obtained. FINDINGS: No significant abnormality is noted involving the heart, lungs, mediastinum, bony thorax or soft tissues. XR/XR chest 2V IMPRESSION: Unremarkable examination. Electronically signed by: Alexandru Bravo MD 10/03/2024 05:48 AM [facility] Discharge Plan Discharge Clinical Impression: Bronchitis Patient Disposition: Still a Patient Instructions: Acute Bronchitis (ED) Additional Instructions: use inhaler as prescribed Prednisone and cough drops as prescribed Follow with your PCP if not better Report to the ER if increased shortness a breath Prescriptions: New benzonatate 200 mg capsule 200 mg PO TID PRN (Reason: cough) Qty: 20 0RF prednisone 20 mg tablet 40 mg PO DAILY Qty: 10 0RF albuterol sulfate 90 mcg/actuation HFA aerosol inhaler 2 puff inhalation Q6H PRN (Reason: shortness of breath or wheezing) Qty: 8.5 0RF No Action cefuroxime axetil 250 mg tablet 250 mg PO BID 7 Days Qty: 14 0RF aripiprazole 10 mg tablet 10 mg PO DAILY lorazepam 0.5 mg tablet PO memantine 10 mg tablet 10 mg PO BID metformin 500 mg tablet extended release 24 hr 500 mg PO TID lisinopril 10 mg tablet 10 mg PO DAILY simvastatin 20 mg tablet 20 mg PO BEDTIME carbidopa-levodopa 25-100 mg tablet 1 tab PO TID Trulicity 0.75 mg/0.5 mL pen injector subcut ibuprofen 600 mg tablet 600 mg PO TID Myrbetriq 25 mg tablet extended release 24 hr 25 mg PO DAILY 90 Days Qty: 90 1RF Print Language: Swedish
[2024-10-03] MEDS: Magnesium Sulfate/H2O 2 GM/50 ML PIGGYBACK IV (06:33)
--- NOTE | 2024-10-03 06:50 | PC.NURSE ---
pt drops to 88% on room air w/o exertion. MD Venegas aware
[2024-10-03] MEDS: Albuterol Sulfate 2.5 MG, Albuterol Sulfate (0.083%) 2.5 MG 5 MG INHALE (07:01)
--- NOTE | 2024-10-03 08:35 | P.HPHOSP_ITS ---
History of Present Illness Date of Service: 10/03/24 Chief Complaint: Shortness of breath 68F PMH Alzheimer's dementia, Parkinson's, diabetes, hypertension, nonalcoholic fatty liver, hyperlipidemia presented with shortness of breath. Patient lives at [facility]. States many residents there have had colds. Over the last 3 days patient has felt congestion, runny nose, shortness and breath, dry cough. Denies similar symptoms in the past. Denies fever, chest pain, nausea vomiting, abdominal pain, diarrhea. In ED noted to be hypoxic to 88% on room air, chest x-ray unremarkable, viral swab negative. Review of Systems 2 Review of Systems: Yes all other systems are reviewed and are negative [facility] Medical History Hyperlipidemia Schizophreniform disorder Atopic dermatitis Anemia Obesity Type 2 diabetes mellitus Gastroesophageal reflux disease without esophagitis Primary hypertension Alzheimer's dementia Major neurocognitive disorder Social History Smoked in Last 30 Days: No Use of substances other than those prescribed or required for medical reasons: No Advance Directives: No Advance Directives Information Provided: Yes Do you have a plan to hurt others: No Plan Meds Allergies Allergy/AdvReac Type Severity Reaction Status Date / Time No Known Allergies Allergy Verified 10/03/24 03:23 Home Medications ?Medication ?Instructions ?Recorded ?Confirmed ?Last Taken ?Type lisinopril 10 mg tablet 10 mg PO DAILY 01/17/24 10/03/24 Unknown History lorazepam 0.5 mg tablet 0.5 mg PO BID 01/17/24 10/03/24 Unknown History memantine 10 mg tablet 10 mg PO BID 01/17/24 10/03/24 Unknown History metformin 500 mg tablet,extended 1,500 mg PO DAILY 01/17/24 10/03/24 Unknown History release 24 hr simvastatin 20 mg tablet 20 mg PO BEDTIME 01/17/24 10/03/24 Unknown History Lactobacillus acidophilus 10 10,000 mmu cells PO BID 10/03/24 10/03/24 Unknown History billion cell capsule (Probiotic) acetaminophen 650 mg 650 mg PO Q4H PRN Fever Or Pain 10/03/24 10/03/24 Unknown History tablet,extended release aluminum-mag hydroxide-simethicone 10 ml PO Q6H PRN Heartburn 10/03/24 10/03/24 Unknown History 400 mg-400 mg-40 mg/5 mL oral susp (Mylanta Maximum Strength) aripiprazole 10 mg disintegrating 10 mg PO DAILY 10/03/24 10/03/24 Unknown History tablet carbidopa 25 mg-levodopa 100 mg 1 tab PO TID 10/03/24 10/03/24 Unknown History tablet dulaglutide 1.5 mg/0.5 mL 1.5 mg subcut TU 10/03/24 10/03/24 Unknown History subcutaneous pen injector (Trulicity) guaifenesin 100 mg/5 mL oral liquid 200 mg PO Q4H PRN Cough 10/03/24 10/03/24 Unknown History lorazepam 0.5 mg tablet 0.5 mg PO DAILY PRN Anxiety 10/03/24 10/03/24 Unknown History mirabegron 25 mg tablet,extended 25 mg PO DAILY 10/03/24 10/03/24 Unknown History release 24 hr (Myrbetriq) rivastigmine 9.5 mg/24 hour 1 patch topical DAILY 10/03/24 10/03/24 Unknown History transdermal patch Physical Exam 2 Vital Signs and Narrative: Vital Signs: Last Vital Signs Temp 98.6 F 10/03/24 08:22 Pulse 120 H 10/03/24 08:22 Resp 16 10/03/24 08:22 BP 130/62 10/03/24 08:22 Pulse Ox 95 10/03/24 08:22 O2 Del Method Nasal Cannula 10/03/24 08:22 O2 Flow Rate 2 10/03/24 08:22 Oxygen Flow Rate 2 10/03/24 05:00 BMI result Body Mass Index 33.0 General: AO X 3, no acute distress Resp: wheezing bilateral, no accessory muscles used CVS: S1,S2,RRR GI: soft, non tender, non distended Neuro: motor grossly intact, alert Psych: appropriate affect, appropriate insight Results Labs 10/03/24 04:46 10/03/24 04:46 Labs: Laboratory Results - last 24 hr 10/03/24 10/03/24 10/03/24 03:31 04:46 04:48 MCV 88.2 MCH 29.3 MCHC 33.2 RDW 12.5 Plt Count 275 MPV 8.9 L Immature Gran % (Auto) 0.3 Neut % (Auto) 67.1 Lymph % (Auto) 21.5 [place] % (Auto) 6.9 Eos % (Auto) 3.9 Baso % (Auto) 0.3 Lymph # (Auto) 2.5 [place] # (Auto) 0.8 Eos # (Auto) 0.5 H Baso # (Auto) 0.0 Abs Immat Gran (auto) 0.03 Absolute Neuts (auto) 7.7 Absolute Nucleated RBC 0.000 Nucleated RBC % (auto) 0.0 VBG pH 7.38 VBG pCO2 46 VBG pO2 86 VBG HCO3 28 H VBG O2 Saturation 98.0 VBG Base Excess 2.4 Anion Gap 17 Estim Creat Clear Calc 81.1 Estimated GFR > 60 Random Glucose 235 H Calcium 8.6 D Magnesium 1.4 L* Total Bilirubin 0.8 AST 35 H ALT 22 Alkaline Phosphatase 106 Troponin I High Sens < 2.7 B-Natriuretic Peptide < 10 Total Protein 7.1 Albumin 4.3 Lipase 16 Influenza Type A (PCR) NEGATIVE Influenza Type B (PCR) NEGATIVE RSV RNA Qual (PCR) NEGATIVE SARS-CoV-2 RNA (RT-PCR) NEGATIVE S. pyogenes GrpA TONY Negative Imaging Radiologist's Impressions: Impressions Chest X-Ray 10/03/24 03:22 IMPRESSION: Unremarkable examination. Electronically signed by: Alexandru Bravo MD 10/03/2024 05:48 AM [facility] Assessment and Plan (1) Hypomagnesemia: Status: Acute Plan 68F PM Alzheimer's dementia, Parkinson's, diabetes, hypertension, nonalcoholic fatty liver, hyperlipidemia presented with shortness of breath Acute hypoxic respiratory failure secondary to acute bronchitis IV steroids, DuoNebs, azithromycin Wean oxygen as tolerated Tachycardia due to nebulizers, no sepsis Diabetes with hyperglycemia Insulin sliding scale Acute hypomagnesemia Replace and monitor Parkinson's sinemet Hypertension lisinopril Nonalcoholic fatty liver disease Weight loss recommended Alzheimer's dementia Stable, still has good insight into medical condition DVT prophylaxis with Lovenox Full Code Patient with acute bronchitis leading to acute hypoxia, still wheezing and short of breath likely require at least 2 midnights inpatient Quality Stroke Does the patient have a stroke diagnosis?: No VTE Prior VTE?: No VTE Risk Level:: Medical - moderate - high VTE Device Contraindication: Treatment Not Indicated VTE Drug Contraindication: N/A - Med Ordered
[2024-10-03] MEDS: Enoxaparin Sodium 40 MG/0.4 ML SYRINGE SUBCUT (09:22)
[2024-10-03] MEDS: Azithromycin 500 MG TABLET PO (09:22)
--- NOTE | 2024-10-03 09:44 | PC.NURSE ---
patient resting quietly in bed, respirations equal and unlabored. patient is on 2l NC, patient ambulated to bathroom with rolling oxygen tank, steady gait. patient is alert and oriented x3. VSS
--- NOTE | 2024-10-03 09:54 | PHA.MEDREC ---
Addendum entered by Minnie Villa RPh 10/03/24 10:10: reviewed by [facility]. Original Note: Pharmacy Consult ? Medication Reconciliation Pharmacy has completed the medication reconciliation.Utilized list from [facility]roy to confirm med list.
[2024-10-03 11:03] LABS: Glucose, Whole Blood 381 mg/dL (60-115)
[2024-10-03] MEDS: ARIPiprazole 10 MG TABLET PO (11:16)
[2024-10-03] MEDS: Insulin Lispro 100 UNIT/ML 3 ML VIAL SUBCUT ×3 (11:16→22:01)
[2024-10-03] MEDS: guaiFENesin DM 100/10/5 ML 5 ML SYRUP PO ×2 (11:34→16:46)
[2024-10-03] MEDS: Carbidopa/Levodopa 25/100 TABLET 1 TAB PO ×2 (14:38→22:01)
[2024-10-03 15:40] LABS: Glucose, Whole Blood 277 mg/dL (60-115)
[2024-10-03] MEDS: 0.9 % Sodium Chloride Flush 3 ML SYRINGE IVFLUSH ×2 (16:46→22:02)
[2024-10-03 21:07] LABS: Glucose, Whole Blood 288 mg/dL (60-115)
[2024-10-03] MEDS: Memantine HCl 10 MG TABLET PO (22:01)
[2024-10-03] MEDS: LORazepam 0.5 MG TABLET PO (22:01)
[2024-10-04 03:49] VITALS: BP 128/63; PULSE 98; RESP 18; TEMP 36.6; O2SAT 96
[2024-10-04 06:41] LABS: Anion Gap 15 (12-20); Blood Urea Nitrogen 15 mg/dL (9-16); Calcium 8.8 mg/dL (8.4-10.2); Carbon Dioxide 27 mmol/L (22-29); Chloride 102 mmol/L (96-108); Creatinine Clr Calc Pharmacy 76.8; Estimated Glomerular Filt Rate > 60; Glucose Random 240 mg/dL (60-115); Sodium 140 mmol/L (135-145)
[2024-10-04 06:57] VITALS: BP 130/72; PULSE 95; RESP 12; TEMP 36.7; O2SAT 97
[2024-10-04 07:18] LABS: Hematocrit 33.5 % (37.0-47.0); Hemoglobin 11.2 g/dl (12.0-16.0); Mean Corpuscular HGB Conc 33.4 g/dl (31.0-35.0); Mean Corpuscular Hemoglobin 29.4 pg (27.0-33.0); Mean Corpuscular Volume 87.9 fL (80.0-98.0); Mean Platelet Volume 9.7 fL (9.4-12.3); Platelet Count 321 X10*3/uL (160-400); Red Blood Count 3.81 X10*6/uL (4.20-5.50); Red Cell Distribution Width 12.3 % (11.0-16.0); White Blood Count 11.5 X10*3/uL (4.8-10.8)
[2024-10-04 07:28] LABS: Glucose, Whole Blood 228 mg/dL (60-115)
[2024-10-04] MEDS: ARIPiprazole 10 MG TABLET PO (07:54)
[2024-10-04] MEDS: Carbidopa/Levodopa 25/100 TABLET 1 TAB PO ×3 (07:54→20:15)
[2024-10-04] MEDS: Mirabegron 25 MG TAB.ER.24H PO (07:54)
[2024-10-04] MEDS: Memantine HCl 10 MG TABLET PO ×2 (07:54→20:16)
[2024-10-04] MEDS: methylPREDNISolone Sod Succ 40 MG/ML VIAL IVPUSH (07:54)
[2024-10-04] MEDS: Insulin Lispro 100 UNIT/ML 3 ML VIAL SUBCUT ×4 (07:54→20:16)
[2024-10-04] MEDS: Azithromycin 500 MG TABLET PO (07:54)
[2024-10-04] MEDS: LORazepam 0.5 MG TABLET PO ×2 (07:55→20:15)
[2024-10-04] MEDS: Atorvastatin Calcium 10 MG TABLET PO (07:55)
[2024-10-04] MEDS: 0.9 % Sodium Chloride Flush 3 ML SYRINGE IVFLUSH ×3 (07:55→20:16)
[2024-10-04] MEDS: lisinopriL 10 MG TABLET PO (07:55)
--- NOTE | 2024-10-04 09:15 | PM.DS ---
DS: Providers Provider Date of Service: 10/05/24 Date of admission: 10/03/24 08:37 Date of discharge: 10/05/24 Primary care physician: Unknown Physician DS: Diagnosis Discharge Diagnosis (1) Hypomagnesemia: Status: Acute DS: Summary Hospital Course Hospital Course: from initial hpi: 68F PMH Alzheimer's dementia, Parkinson's, diabetes, hypertension, nonalcoholic fatty liver, hyperlipidemia presented with shortness of breath. Patient lives at [facility]. States many residents there have had colds. Over the last 3 days patient has felt congestion, runny nose, shortness and breath, dry cough. Denies similar symptoms in the past. Denies fever, chest pain, nausea vomiting, abdominal pain, diarrhea. In ED noted to be hypoxic to 88% on room air, chest x-ray unremarkable, viral swab negative. hospital course: Patient was admitted for acute hypoxic respiratory failure secondary to acute bronchitis. Was treated with IV steroids, DuoNebs, azithromycin. She was weaned to room air and symptoms improved. She will be discharged home on 5 more days of azithromycin, prednisone and given albuterol inhaler as needed. For diabetes with hyperglycemia was treated with insulin sliding scale. For acute hypomagnesemia received replacement. For Parkinson's disease was continued on Sinemet. For hypertension was continued on lisinopril. For nonalcoholic fatty liver disease weight loss recommended. For Alzheimer's dementia patient is stable and still has good insight into her medical conditions. Time Attestation Discharge Coordination Time (in mins): 32 Quality: Safe Use of Opioids Does Pt have an Active Cancer Diagnosis on the Problem List?: No Quality: Stroke Does the patient have a stroke diagnosis?: No Physical Exam Vital Signs: Vital Signs: Last Vital Signs Temp 98.1 F 10/04/24 06:57 Pulse 95 10/04/24 06:57 Resp 12 10/04/24 06:57 BP 130/72 10/04/24 06:57 Pulse Ox 97 10/04/24 06:57 O2 Del Method Nasal Cannula 10/04/24 06:57 O2 Flow Rate 2 10/04/24 06:57 Oxygen Flow Rate 2 10/03/24 05:00 BMI result Body Mass Index 34.2 General: AO X 3, no acute distress Resp: CTA bilateral, no accessory muscles used CVS: S1,S2,RRR GI: soft, non tender, non distended Neuro: motor grossly intact, alert Psych: appropriate affect, appropriate insight DS: Data Data Completed and Pending Labs on day of discharge: Laboratory Results - last 24 hr 10/03/24 10/03/24 10/03/24 10:58 15:33 21:03 WBC RBC Hgb Hct MCV MCH MCHC RDW Plt Count MPV Absolute Nucleated RBC Nucleated RBC % (auto) Sodium Potassium Chloride Carbon Dioxide Anion Gap BUN Creatinine Estim Creat Clear Calc Estimated GFR POC Glucose 381 H* 277 H 288 H Random Glucose Calcium 10/04/24 10/04/24 10/04/24 05:33 05:34 07:00 WBC 11.5 H RBC 3.81 L Hgb 11.2 L Hct 33.5 L MCV 87.9 MCH 29.4 MCHC 33.4 RDW 12.3 Plt Count 321 MPV 9.7 Absolute Nucleated RBC 0.000 Nucleated RBC % (auto) 0.0 Sodium 140 Potassium 4.0 Chloride 102 Carbon Dioxide 27 Anion Gap 15 BUN 15 Creatinine 0.70 Estim Creat Clear Calc 76.8 Estimated GFR > 60 POC Glucose 228 H Random Glucose 240 H Calcium 8.8 Discharge Plan Discharge Anticipated Discharge Date/Time: 10/04/24 09:12 Patient Disposition: Home, Self-Care Discharge Diagnosis: bronchitis Referrals: Physician,Unknown J [Primary Care Provider] - 1 Week Discharge Medications: New azithromycin 500 mg Tablet 500 mg PO Q24H Qty: 5 0RF prednisone 20 mg tablet 40 mg PO DAILY Qty: 10 0RF albuterol sulfate 90 mcg/actuation HFA aerosol inhaler 2 puff inhalation Q6H PRN (Reason: shortness of breath or wheezing) Qty: 8.5 0RF Continued aripiprazole 10 mg tablet,disintegrating 10 mg PO DAILY Trulicity 1.5 mg/0.5 mL pen injector 1.5 mg subcut TU guaifenesin 100 mg/5 mL Liquid 200 mg PO Q4H PRN (Reason: Cough) acetaminophen 650 mg Tablet Extended Release 650 mg PO Q4H PRN (Reason: Fever Or Pain) lorazepam 0.5 mg tablet 0.5 mg PO DAILY PRN (Reason: Anxiety) alum-mag hydroxide-simeth [Mylanta Maximum Strength] 400-400-40 mg/5 mL Suspension 10 ml PO Q6H PRN (Reason: Heartburn) rivastigmine 9.5 mg/24 hour patch 24 hour 1 patch topical DAILY mirabegron [Myrbetriq] 25 mg tablet extended release 24 hr 25 mg PO DAILY Probiotic 10 billion cell Capsule 10,000 mmu cells PO BID carbidopa-levodopa 25-100 mg tablet 1 tab PO TID lorazepam 0.5 mg tablet 0.5 mg PO BID memantine 10 mg tablet 10 mg PO BID metformin 500 mg tablet extended release 24 hr 1,500 mg PO DAILY lisinopril 10 mg tablet 10 mg PO DAILY simvastatin 20 mg tablet 20 mg PO BEDTIME Discharge Orders: Discharge Order (Routine); Ordered 10/05/24 Ordered By: Arden Chong Diet: Advance to usual diet Activity on Discharge: As tolerated Stand Alone Forms: Patient Portal Discharge page Print Language: Mexican Activity Restrictions/Additional Instructions: use inhaler as prescribed Prednisone and cough drops as prescribed Follow with your PCP if not better Report to the ER if increased shortness a breath Care Plan Goals: recovery Health Concerns: bronchitis Plan of Treatment: 5 days azithro and prednisone, albuterol as needed Assessment: see above Patient Instructions: Acute Bronchitis (ED)
--- NOTE | 2024-10-04 10:20 | HO.PM.IMPN ---
Subjective Subjective Date of Service: 10/04/24 Interval History: improved, but still sob on exertion Physical Exam Vital Signs: Vital Signs: Last Vital Signs Temp 98.1 F 10/04/24 06:57 Pulse 95 10/04/24 06:57 Resp 12 10/04/24 06:57 BP 130/72 10/04/24 06:57 Pulse Ox 97 10/04/24 06:57 O2 Del Method Nasal Cannula 10/04/24 06:57 O2 Flow Rate 2 10/04/24 06:57 Oxygen Flow Rate 2 10/03/24 05:00 BMI result Body Mass Index 34.2 General: AO X 3, no acute distress Resp: CTA bilateral, no accessory muscles used CVS: S1,S2,RRR GI: soft, non tender, non distended Neuro: motor grossly intact, alert Psych: appropriate affect, appropriate insight Objective Data Active Medications Acetaminophen (Acetaminophen 325 Mg Tablet) 650 mg PO Q6H PRN PRN Reason: Pain, Mild (Pain Scale 1-3), fever or headache Al Hydroxide/Mg Hydroxide (Magnesium Hydrox/Alum Hydrox 30 Ml Oral.Susp) 10 ml PO Q6H PRN PRN Reason: Heartburn Albuterol/Ipratropium (Albuterol/Iprat 2.5/0.5mg 3 Ml Ampul.Neb) 3 ml INHALE RQ4H WHILE AWAKE PRN PRN Reason: sob Aripiprazole (Aripiprazole 10 Mg Tablet) 10 mg PO DAILY [facility] Last Admin: 10/04/24 07:54 Dose: 10 mg Documented By: KIKI Atorvastatin Calcium (Atorvastatin Calcium 10 Mg Tablet) 10 mg PO DAILY [facility] Last Admin: 10/04/24 07:55 Dose: 10 mg Documented By: KIKI Azithromycin (Azithromycin 500 Mg Tablet) 500 mg PO Q24H [facility] Last Admin: 10/04/24 07:54 Dose: 500 mg Documented By: KIKI Calcium Carbonate (Calcium Carbonate 750 Mg Tab.Chew) 750 mg PO Q4H PRN PRN Reason: Heartburn Carbidopa/Levodopa (Carbidopa/Levodopa 25/100 Tablet) 1 tab PO TID [facility] Last Admin: 10/04/24 07:54 Dose: 1 tab Documented By: KIKI Enoxaparin Sodium (Enoxaparin Sodium 40 Mg/0.4 Ml Syringe) 40 mg SUBCUT Q24H [facility] Last Admin: 10/03/24 09:22 Dose: 40 mg Documented By: CORY Glucose (Glucose Gel 15 Gm Gel..Gram.) 15 gm PO Q15M PRN; Protocol PRN Reason: per Hypoglycemia Standing Ord. Guaifenesin/Dextromethorphan (Guaifenesin Dm 100/10/5 Ml 5 Ml Syrup) 5 ml PO Q4H PRN PRN Reason: Cough Last Admin: 10/03/24 16:46 Dose: 5 ml Documented By: REMINGTON Dextrose (D10) 250 mls @ 750 mls/hr IV Q15M PRN; Protocol PRN Reason: per Hypoglycemia Standing Ord. Insulin Human Lispro (Insulin Lispro 100 Unit/Ml 3 Ml Vial) 0 unit SUBCUT QIDACHS [facility]; Protocol Last Admin: 10/04/24 07:54 Dose: 4 unit Documented By: KIKI Lisinopril (Lisinopril 10 Mg Tablet) 10 mg PO DAILY [facility]; Protocol Last Admin: 10/04/24 07:55 Dose: 10 mg Documented By: KIKI Lorazepam (Lorazepam 0.5 Mg Tablet) 0.5 mg PO DAILY PRN PRN Reason: Anxiety Lorazepam (Lorazepam 0.5 Mg Tablet) 0.5 mg PO BID [facility] Last Admin: 10/04/24 07:55 Dose: 0.5 mg Documented By: KIKI Magnesium Hydroxide (Milk Of Magnesia 30 Ml Oral.Susp) 30 ml PO DAILY PRN PRN Reason: Constipation Melatonin (Melatonin 3 Mg Tablet) 6 mg PO BEDTIME PRN PRN Reason: Insomnia Memantine (Memantine Hcl 10 Mg Tablet) 10 mg PO BID [facility] Last Admin: 10/04/24 07:54 Dose: 10 mg Documented By: KIKI Methylprednisolone Sodium Succinate (Methylprednisolone Sod Succ 40 Mg/Ml Vial) 40 mg IVPUSH Q24H [facility] Last Admin: 10/04/24 07:54 Dose: 40 mg Documented By: KIKI Mirabegron (Mirabegron 25 Mg Tab.Er.24h) 25 mg PO DAILY [facility] Last Admin: 10/04/24 07:54 Dose: 25 mg Documented By: KIKI Non-Formulary Medication (Rivastigmine) 1 patch TOPICAL DAILY [facility] Sodium Chloride (0.9 % Sodium Chloride Flush 3 Ml Syringe) 3 ml IVFLUSH QSHIFT [facility] Last Admin: 10/04/24 07:55 Dose: 3 ml Documented By: KIKI Labs 10/04/24 05:33 10/04/24 05:34 Labs: Laboratory Results - last 24 hr 10/03/24 10/03/24 10/03/24 10:58 15:33 21:03 MCV MCH MCHC RDW Plt Count MPV Absolute Nucleated RBC Nucleated RBC % (auto) Anion Gap Estim Creat Clear Calc Estimated GFR POC Glucose 381 H* 277 H 288 H Random Glucose Calcium 10/04/24 10/04/24 10/04/24 05:33 05:34 07:00 MCV 87.9 MCH 29.4 MCHC 33.4 RDW 12.3 Plt Count 321 MPV 9.7 Absolute Nucleated RBC 0.000 Nucleated RBC % (auto) 0.0 Anion Gap 15 Estim Creat Clear Calc 76.8 Estimated GFR > 60 POC Glucose 228 H Random Glucose 240 H Calcium 8.8 Assessment and Plan (1) Hypoxia: Status: Acute Plan 68F PM Alzheimer's dementia, Parkinson's, diabetes, hypertension, nonalcoholic fatty liver, hyperlipidemia presented with shortness of breath Acute hypoxic respiratory failure secondary to acute bronchitis IV steroids, DuoNebs, azithromycin Wean oxygen as tolerated Tachycardia due to nebulizers, no sepsis still requiring 2L to maintain sats above 90 Diabetes with hyperglycemia Insulin sliding scale Acute hypomagnesemia Replaced Parkinson's sinemet Hypertension lisinopril Nonalcoholic fatty liver disease Weight loss recommended Alzheimer's dementia Stable, still has good insight into medical condition DVT prophylaxis with Lovenox Full Code reason for continued hospitalization:hypoxia Quality Stroke Does the patient have a stroke diagnosis?: No VTE Prior VTE?: No VTE Risk Level:: Medical - moderate - high VTE Device Contraindication: Treatment Not Indicated VTE Drug Contraindication: N/A - Med Ordered
[2024-10-04 11:29] LABS: Glucose, Whole Blood 308 mg/dL (60-115)
[2024-10-04] MEDS: Enoxaparin Sodium 40 MG/0.4 ML SYRINGE SUBCUT (11:55)
[2024-10-04 14:58] VITALS: BP 124/62; PULSE 95; RESP 16; TEMP 36.6; O2SAT 94
--- NOTE | 2024-10-04 15:27 | MHC.CM.PN ---
PT REPORTS SHE RESIDES AT [facility] SHE SAYS SHE IS INDEPENDENT WITH CARE AND USES NO DME SHE DOES NOT WANT TO COMPLETE A HCP BUT AGREES TO TAKE INFO/DOCUMENT SHE SAYS SHE ONLY SEES THE MD THAT VISITS DARSHAN AYAAN FOR HER PRIMARY CARE IMM DELIVERED DCP: RETURN TO [facility] SHUTTLE TRANSPORT
[2024-10-04 16:30] LABS: Glucose, Whole Blood 401 mg/dL (60-115)
[2024-10-04] MEDS: Insulin Lispro 100 UNIT/ML 3 ML VIAL 10 UNIT SUBCUT (17:08)
[2024-10-04 18:55] VITALS: BP 104/67; PULSE 90; RESP 16; TEMP 36.1; O2SAT 95
[2024-10-04 20:01] LABS: Glucose, Whole Blood 307 mg/dL (60-115)
[2024-10-04] MEDS: guaiFENesin DM 100/10/5 ML 5 ML SYRUP PO (20:21)
[2024-10-05 04:00] VITALS: BP 128/75; PULSE 91; RESP 18; TEMP 36.4; O2SAT 95
[2024-10-05 06:41] LABS: Anion Gap 13 (12-20); Blood Urea Nitrogen 21 mg/dL (9-16); Calcium 8.8 mg/dL (8.4-10.2); Carbon Dioxide 29 mmol/L (22-29); Chloride 104 mmol/L (96-108); Estimated Glomerular Filt Rate > 60; Glucose Random 145 mg/dL (60-115); Potassium 3.7 mmol/L (3.3-5.1); Sodium 142 mmol/L (135-145)
[2024-10-05 06:50] LABS: Hematocrit 34.4 % (37.0-47.0); Hemoglobin 11.1 g/dl (12.0-16.0); Mean Corpuscular HGB Conc 32.3 g/dl (31.0-35.0); Mean Corpuscular Volume 89.8 fL (80.0-98.0); Mean Platelet Volume 9.7 fL (9.4-12.3); Platelet Count 326 X10*3/uL (160-400); Red Blood Count 3.83 X10*6/uL (4.20-5.50); Red Cell Distribution Width 12.3 % (11.0-16.0); White Blood Count 10.5 X10*3/uL (4.8-10.8)
[2024-10-05 07:11] VITALS: BP 131/72; PULSE 81; RESP 12; TEMP 36.3; O2SAT 96
[2024-10-05 07:30] LABS: Glucose, Whole Blood 156 mg/dL (60-115)
[2024-10-05] MEDS: methylPREDNISolone Sod Succ 40 MG/ML VIAL IVPUSH (07:46)
[2024-10-05] MEDS: Azithromycin 500 MG TABLET PO (07:46)
[2024-10-05] MEDS: lisinopriL 10 MG TABLET PO (07:46)
[2024-10-05] MEDS: Carbidopa/Levodopa 25/100 TABLET 1 TAB PO (07:46)
[2024-10-05] MEDS: guaiFENesin DM 100/10/5 ML 5 ML SYRUP PO (07:46)
[2024-10-05] MEDS: Atorvastatin Calcium 10 MG TABLET PO (07:46)
[2024-10-05] MEDS: 0.9 % Sodium Chloride Flush 3 ML SYRINGE IVFLUSH (07:47)
[2024-10-05] MEDS: ARIPiprazole 10 MG TABLET PO (07:47)
[2024-10-05] MEDS: Memantine HCl 10 MG TABLET PO (07:47)
[2024-10-05] MEDS: Insulin Lispro 100 UNIT/ML 3 ML VIAL SUBCUT ×2 (07:47→11:13)
[2024-10-05] MEDS: LORazepam 0.5 MG TABLET PO (07:48)
[2024-10-05] MEDS: Mirabegron 25 MG TAB.ER.24H PO (08:12)
--- NOTE | 2024-10-05 08:38 | P.PNIM_ITS ---
Subjective Subjective Date of Service: 10/05/24 Interval History: feeling better Physical Exam 2 Vital Signs: Vital Signs: Last Vital Signs Temp 97.3 F 10/05/24 07:11 Pulse 81 10/05/24 07:11 Resp 12 10/05/24 07:11 BP 131/72 10/05/24 07:11 Pulse Ox 96 10/05/24 07:11 O2 Del Method Nasal Cannula 10/05/24 07:11 O2 Flow Rate 1 10/05/24 07:11 Oxygen Flow Rate 2 10/03/24 05:00 BMI result Body Mass Index 34.2 General: AO X 3, no acute distress Resp: no wheezes, left basilar crackles, no accessory muscles used CVS: S1,S2,RRR GI: soft, non tender, non distended Neuro: motor grossly intact, alert Psych: appropriate affect, appropriate insight Objective Data Active Medications Acetaminophen (Acetaminophen 325 Mg Tablet) 650 mg PO Q6H PRN PRN Reason: Pain, Mild (Pain Scale 1-3), fever or headache Al Hydroxide/Mg Hydroxide (Magnesium Hydrox/Alum Hydrox 30 Ml Oral.Susp) 10 ml PO Q6H PRN PRN Reason: Heartburn Albuterol/Ipratropium (Albuterol/Iprat 2.5/0.5mg 3 Ml Ampul.Neb) 3 ml INHALE RQ4H WHILE AWAKE PRN PRN Reason: sob Aripiprazole (Aripiprazole 10 Mg Tablet) 10 mg PO DAILY [facility] Last Admin: 10/05/24 07:47 Dose: 10 mg Documented By: EMILY Atorvastatin Calcium (Atorvastatin Calcium 10 Mg Tablet) 10 mg PO DAILY [facility] Last Admin: 10/05/24 07:46 Dose: 10 mg Documented By: EMILY Azithromycin (Azithromycin 500 Mg Tablet) 500 mg PO Q24H [facility] Last Admin: 10/05/24 07:46 Dose: 500 mg Documented By: EMILY Calcium Carbonate (Calcium Carbonate 750 Mg Tab.Chew) 750 mg PO Q4H PRN PRN Reason: Heartburn Carbidopa/Levodopa (Carbidopa/Levodopa 25/100 Tablet) 1 tab PO TID [facility] Last Admin: 10/05/24 07:46 Dose: 1 tab Documented By: EMILY Enoxaparin Sodium (Enoxaparin Sodium 40 Mg/0.4 Ml Syringe) 40 mg SUBCUT Q24H [facility] Last Admin: 10/04/24 11:55 Dose: 40 mg Documented By: KIKI Glucose (Glucose Gel 15 Gm Gel..Gram.) 15 gm PO Q15M PRN; Protocol PRN Reason: per Hypoglycemia Standing Ord. Guaifenesin/Dextromethorphan (Guaifenesin Dm 100/10/5 Ml 5 Ml Syrup) 5 ml PO Q4H PRN PRN Reason: Cough Last Admin: 10/05/24 07:46 Dose: 5 ml Documented By: EMILY Dextrose (D10) 250 mls @ 750 mls/hr IV Q15M PRN; Protocol PRN Reason: per Hypoglycemia Standing Ord. Insulin Human Lispro (Insulin Lispro 100 Unit/Ml 3 Ml Vial) 0 unit SUBCUT QIDACHS [facility]; Protocol Last Admin: 10/05/24 07:47 Dose: 2 unit Documented By: EMILY Lisinopril (Lisinopril 10 Mg Tablet) 10 mg PO DAILY [facility]; Protocol Last Admin: 10/05/24 07:46 Dose: 10 mg Documented By: EMILY Lorazepam (Lorazepam 0.5 Mg Tablet) 0.5 mg PO DAILY PRN PRN Reason: Anxiety Lorazepam (Lorazepam 0.5 Mg Tablet) 0.5 mg PO BID [facility] Last Admin: 10/05/24 07:48 Dose: 0.5 mg Documented By: EMILY Magnesium Hydroxide (Milk Of Magnesia 30 Ml Oral.Susp) 30 ml PO DAILY PRN PRN Reason: Constipation Melatonin (Melatonin 3 Mg Tablet) 6 mg PO BEDTIME PRN PRN Reason: Insomnia Memantine (Memantine Hcl 10 Mg Tablet) 10 mg PO BID [facility] Last Admin: 10/05/24 07:47 Dose: 10 mg Documented By: EMILY Methylprednisolone Sodium Succinate (Methylprednisolone Sod Succ 40 Mg/Ml Vial) 40 mg IVPUSH Q24H [facility] Last Admin: 10/05/24 07:46 Dose: 40 mg Documented By: EMILY Mirabegron (Mirabegron 25 Mg Tab.Er.24h) 25 mg PO DAILY [facility] Last Admin: 10/05/24 08:12 Dose: 25 mg Documented By: EMILY Non-Formulary Medication (Rivastigmine) 1 patch TOPICAL DAILY [facility] Sodium Chloride (0.9 % Sodium Chloride Flush 3 Ml Syringe) 3 ml IVFLUSH QSHIFT [facility] Last Admin: 10/05/24 07:47 Dose: 3 ml Documented By: EMILY Labs 10/05/24 05:14 10/05/24 05:14 Labs: Laboratory Results - last 24 hr 10/04/24 10/04/24 10/04/24 11:19 16:19 19:57 MCV MCH MCHC RDW Plt Count MPV Absolute Nucleated RBC Nucleated RBC % (auto) Anion Gap Estim Creat Clear Calc Estimated GFR POC Glucose 308 H 401 H* 307 H Random Glucose Calcium 10/05/24 10/05/24 05:14 07:23 MCV 89.8 MCH 29.0 MCHC 32.3 RDW 12.3 Plt Count 326 MPV 9.7 Absolute Nucleated RBC 0.000 Nucleated RBC % (auto) 0.0 Anion Gap 13 Estim Creat Clear Calc 84.0 Estimated GFR > 60 POC Glucose 156 H Random Glucose 145 H Calcium 8.8 Assessment and Plan (1) Hypoxia: Status: Acute Plan 68F PMH Alzheimer's dementia, Parkinson's, diabetes, hypertension, nonalcoholic fatty liver, hyperlipidemia presented with shortness of breath Acute hypoxic respiratory failure secondary to acute bronchitis IV steroids, DuoNebs, azithromycin Wean oxygen as tolerated Tachycardia due to nebulizers, no sepsis still requiring 1L to maintain sats above 90 check repeat cxr Diabetes with hyperglycemia Insulin sliding scale Acute hypomagnesemia Replaced Parkinson's sinemet Hypertension lisinopril Nonalcoholic fatty liver disease Weight loss recommended Alzheimer's dementia Stable, still has good insight into medical condition DVT prophylaxis with Lovenox Full Code reason for continued hospitalization:hypoxia Quality Stroke Does the patient have a stroke diagnosis?: No VTE Prior VTE?: No VTE Risk Level:: Medical - moderate - high VTE Device Contraindication: Treatment Not Indicated VTE Drug Contraindication: N/A - Med Ordered
[2024-10-05] MEDS: Enoxaparin Sodium 40 MG/0.4 ML SYRINGE SUBCUT (09:22)
[2024-10-05 10:18] VITALS: O2SAT 94
[2024-10-05 11:12] LABS: Glucose, Whole Blood 332 mg/dL (60-115)
== END 2024-10-05 14:08 | disposition home or self-care (01) | DRG 202 ==
LOC: HO.ED 07:33 → HO.EDOVER 08:37 → HO.S3 09:46
PROVIDERS: Admitting Provider Internal Medicine; Emergency Provider Internal Medicine; Visit Provider Internal Medicine
DX: J20.9 Acute bronchitis, unspecified (principal); J96.01 Acute respiratory failure with hypoxia; G30.9 Alzheimer's disease, unspecified; E11.65 Type 2 diabetes mellitus with hyperglycemia; E83.42 Hypomagnesemia; Z71.3 Dietary counseling and surveillance; G20.A1 Parkinson's disease without dyskinesia, without mention of fluctuations; F02.80 Dementia in other diseases classified elsewhere, unspecified severity, without behavioral disturbance, psychotic disturbance, mood disturbance, and anxiety; F20.9 Schizophrenia, unspecified; K76.0 Fatty (change of) liver, not elsewhere classified; E78.5 Hyperlipidemia, unspecified; Z20.822 Contact with and (suspected) exposure to COVID-19; Z79.84 Long term (current) use of oral hypoglycemic drugs; Z79.899 Other long term (current) drug therapy
CPT/HCPCS: 0241U; 36415; 71045; 71046; 80048; 80053; 82803; 82947; 83690; 83735; 83880; 84484; 85025; 85027; 87651; 93005; 94640; 99285; J1650; J2919; J3475

== ENCOUNTER → 2024-10-03 03:15 | Outpatient (BNV) | payer MEDICARE, MEDICAID, SELFPAY | PROVIDERS: Admitting Provider Internal Medicine; Emergency Provider Internal Medicine; Visit Provider Internal Medicine | DX: R94.31 Abnormal electrocardiogram [ECG] [EKG] (principal) | CPT/HCPCS: 93010 ==

== ENCOUNTER → 2024-10-03 08:37 | Outpatient (BNV) | payer MEDICARE, MEDICAID, SELFPAY | PROVIDERS: Admitting Provider Internal Medicine; Emergency Provider Internal Medicine; Visit Provider Internal Medicine | DX: R09.02 Hypoxemia (principal) | CPT/HCPCS: 99223; 99232; 99239 ==

== ENCOUNTER 2024-10-11 10:10 | Outpatient (REF) | payer MEDICARE, MEDICAID, SELFPAY | END 2024-10-11 10:11 | disposition home or self-care (01) | LOC: HO.US 10:10 | PROVIDERS: PCP Internal Medicine; Visit Provider Nurse Practitioner Family | DX: N28.1 Cyst of kidney, acquired (principal) | CPT/HCPCS: 76775 ==

== ENCOUNTER → 2024-10-11 10:12 | Outpatient (BNV) | payer MEDICARE, MEDICAID, SELFPAY | PROVIDERS: PCP Internal Medicine; Visit Provider Radiology Diagnostic Radiology | DX: N28.1 Cyst of kidney, acquired (principal) | CPT/HCPCS: 76775 ==

== ENCOUNTER 2024-10-19 12:44 | Emergency (ER) | payer MEDICARE, MEDICAID, SELFPAY ==
[2024-10-19 12:51] VITALS: BP 132/82; PULSE 127; O2SAT 94
--- NOTE | 2024-10-19 12:56 | ED_ITS ---
HPI - General Adult General Chief complaint: Recheck/Abnormal Lab/Rx Stated complaint: L ABD PAIN PER EMS Time Seen by Provider: 10/19/24 18:58 Source: patient Mode of arrival: ambulatory Limitations: no limitations History of Present Illness ED Provider: Dr. Peace Mcbride HPI narrative: Patient comes to the emergency room complaining of high blood sugar. Patient states that she is wanting to get checked out. Patient denies chest pain or shortness of breath, no visual changes Related Data Home Medications ?Medication ?Instructions ?Recorded ?Confirmed lisinopril 10 mg tablet 10 mg PO DAILY 01/17/24 10/03/24 lorazepam 0.5 mg tablet 0.5 mg PO BID 01/17/24 10/03/24 memantine 10 mg tablet 10 mg PO BID 01/17/24 10/03/24 metformin 500 mg tablet,extended 1,500 mg PO DAILY 01/17/24 10/03/24 release 24 hr simvastatin 20 mg tablet 20 mg PO BEDTIME 01/17/24 10/03/24 Lactobacillus acidophilus 10 10,000 mmu cells PO BID 10/03/24 10/03/24 billion cell capsule (Probiotic) acetaminophen 650 mg 650 mg PO Q4H PRN Fever Or Pain 10/03/24 10/03/24 tablet,extended release aluminum-mag hydroxide-simethicone 10 ml PO Q6H PRN Heartburn 10/03/24 10/03/24 400 mg-400 mg-40 mg/5 mL oral susp (Mylanta Maximum Strength) aripiprazole 10 mg disintegrating 10 mg PO DAILY 10/03/24 10/03/24 tablet carbidopa 25 mg-levodopa 100 mg 1 tab PO TID 10/03/24 10/03/24 tablet dulaglutide 1.5 mg/0.5 mL 1.5 mg subcut TU 10/03/24 10/03/24 subcutaneous pen injector (Trulicity) guaifenesin 100 mg/5 mL oral liquid 200 mg PO Q4H PRN Cough 10/03/24 10/03/24 lorazepam 0.5 mg tablet 0.5 mg PO DAILY PRN Anxiety 10/03/24 10/03/24 mirabegron 25 mg tablet,extended 25 mg PO DAILY 10/03/24 10/03/24 release 24 hr (Myrbetriq) rivastigmine 9.5 mg/24 hour 1 patch topical DAILY 10/03/24 10/03/24 transdermal patch Previous Rx's ?Medication ?Instructions ?Recorded albuterol sulfate 90 mcg/actuation 2 puff inhalation Q6H PRN 10/04/24 aerosol inhaler shortness of breath or wheezing #8.5 grams azithromycin 500 mg tablet 500 mg PO Q24H #5 tabs 10/04/24 prednisone 20 mg tablet 40 mg (2 x 20 mg) PO DAILY #10 tabs 10/04/24 Allergies Allergy/AdvReac Type Severity Reaction Status Date / Time No Known Allergies Allergy Verified 10/19/24 13:01 Review of Systems 2 Review of Systems: Constitutional : No Weight loss, No Fever, No Chills, No Night Sweats, No Fatigue, No Malaise ENT/Mouth : No Hearing loss, No Ear Pain, No Nasal Congestion, No Sinus Pain, No Hoarseness, No sore throat, No Rhinorrhea, No Swallowing Difficulty Eyes: No Eye Pain, No Swelling, No Redness, No Foreign Body, No Discharge, No Vision Changes Cardiovascular : No Chest Pain, No SOB, No Dyspnea on Exertion, No Orthopnea, No Edema, No Palpitations Respiratory : No Cough, No Sputum, No Wheezing, No Smoke Exposure, No Dyspnea Gastrointestinal : No Nausea, No Vomiting, No Diarrhea, No Constipation, No abdominal Pain, No Hematochezia, No Melena Genitourinary : no irregular bleeding, No Dysuria, No Urinary Frequency, No Hematuria, No Urinary Incontinence, No Urgency, No Flank Pain, No Urinary Flow Changes, No Hesitancy Musculoskeletal : No joint pain, No Myalgias, No Joint Swelling Skin : No Skin Lesions, No rash Neuro : No Weakness, No Numbness, No Paresthesias, No Loss of Consciousness, No Dizziness, No Headache Psych : No Anxiety/Panic, No Depression, No SI/HI/AH/VH, No Social Issues, Heme/Lymph: No Bruising, No Bleeding,No Lymphadenopathy, complaining high blood sugar Endocrine : No Polyuria, No Polydipsia, No Temperature Intolerance PMFSH Past Medical History Medical History Hyperlipidemia Schizophreniform disorder Atopic dermatitis Anemia Obesity Type 2 diabetes mellitus Gastroesophageal reflux disease without esophagitis Primary hypertension Alzheimer's dementia Major neurocognitive disorder Social History Social History Household Members: Other Housing: Assisted Living Facility Housing Other:: [facility] Patient Tobacco Use Status: Never used Tobacco Smoked in Last 30 Days: No Use of substances other than those prescribed or required for medical reasons: No Advance Directives: No Advance Directives Information Provided: Yes Do you have a plan to hurt others: No Plan service: No Physical Exam ED Vital Signs: Vital Signs - 24 hr 10/19/24 12:59 10/19/24 19:22 10/19/24 21:51 Temperature 97.3 F 98.4 F 97.7 F Pulse Rate 129 H 108 H 101 H Respiratory Rate 20 16 12 Blood Pressure 100/54 L 129/67 124/61 Pulse Oximetry 94 96 92 Oxygen Delivery Method Room Air Room Air Room Air 10/20/24 00:46 Temperature 98.2 F Pulse Rate 104 H Respiratory Rate 18 Blood Pressure 120/56 L Pulse Oximetry 93 Oxygen Delivery Method Room Air BMI result Body Mass Index 34.0 Course Course Course Narrative: This is a rapid medical exam performed by Rito Mxa NP: Additional HPI, ROS, PE not included below will be deferred to primary provider. Patient is a 68-year-old female with history of T2DM, Alzheimer's, paranoid schizophrenia, HTN presenting to the ED via EMS from [facility] with complaint of abdominal pain, states my blood sugars are all out of whack. Also reports nausea and vomiting, patient attributes to Trulicity. Patient awake, A+Ox3, in no acute distress. Plan: labs, viral serology Medications Administered Discontinued Medications Generic Name Dose Route Start Last Admin Trade Name Freq PRN Reason Stop Dose Admin Magnesium Sulfate 2 gm in 50 mls @ 25 mls/hr 10/19/24 22:58 10/19/24 23:55 Magnesium Sulfate/H2o IV 10/20/24 00:57 25 mls/hr ONCE ONE Administration Medical Decision Making Medical Decision Making MDM Narrative: Patient's blood glucose improved without insulin. Patient received magnesium which was low. Repeat pending. Patient states that she is up symptomatic. Denies any symptoms. My interpretation of EKG: Normal sinus rhythm, heart rate 96, no ST segment depression or elevation, no T-wave inversion, QTC 439 Differential Diagnosis Differential Diagnoses: The differential diagnosis associated with the presentation includes (Hypomagnesemia, DKA, hyperglycemia) Lab Data MDM Lab Attestation statement: I reviewed the patient's lab results. 10/19/24 14:45 10/19/24 14:45 Labs: Lab Results 10/19/24 10/19/24 10/19/24 Range/Units 14:44 14:45 14:55 WBC 16.7 H (4.8-10.8) X10*3/uL RBC 4.69 D (4.20-5.50) X10*6/uL Hgb 13.9 D (12.0-16.0) g/dl Hct 41.2 (37.0-47.0) % MCV 87.8 (80.0-98.0) fL MCH 29.6 (27.0-33.0) pg MCHC 33.7 (31.0-35.0) g/dl RDW 12.4 (11.0-16.0) % Plt Count 321 (160-400) X10*3/uL MPV 9.4 (9.4-12.3) fL Immature Gran % (Auto) 0.7 H (0.0-0.4) % Neut % (Auto) 86.7 H (45-73) % Lymph % (Auto) 5.8 L (20-40) % [place] % (Auto) 6.2 (2-11) % Eos % (Auto) 0.4 (0-4) % Baso % (Auto) 0.2 (0-2) % Lymph # (Auto) 1.0 L (1.2-4.9) X10*3/uL [place] # (Auto) 1.0 (0.1-1.2) X10*3/uL Eos # (Auto) 0.1 (0.0-0.4) X10*3/uL Baso # (Auto) 0.0 (0.0-0.2) X10*3/uL Abs Immat Gran (auto) 0.12 H (0.00-0.03) X10*3/uL Absolute Neuts (auto) 14.4 H (2.0-8.3) x10*3/uL Absolute Nucleated RBC 0.000 (0.0-0.012) X10*3/uL Nucleated RBC % (auto) 0.0 (0.0-0.2) /100WBC PT 11.6 (10.9-12.4) SEC INR 1.0 (0.9-1.1) Sodium 137 (135-145) mmol/L Potassium 5.1 D (3.3-5.1) mmol/L Chloride 102 (96-108) mmol/L Carbon Dioxide 24 (22-29) mmol/L Anion Gap 16 (12-20) BUN 18 H (9-16) mg/dL Creatinine 0.87 (0.5-1.4) mg/dL Estim Creat Clear Calc 61.5 Estimated GFR > 60 POC Glucose (60-115) mg/dL Random Glucose 221 H (60-115) mg/dL Calcium 8.4 (8.4-10.2) mg/dL Magnesium 1.2 L* (1.6-2.6) mg/dL Total Bilirubin 1.4 H (0.0-1.0) mg/dL AST 23 (5-31) U/L ALT 20 (0-31) U/L Alkaline Phosphatase 96 (39-117) U/L Troponin I High Sens < 2.7 (<3.5-17.0) ng/L Total Protein 7.1 (6.5-8.0) g/dL Albumin 4.3 (3.5-5.0) g/dL Lipase 13 (8-78) U/L Beta-Hydroxybutyrate 0.24 (0.02-0.27) mmol/L Urine Color Urine Appearance Urine pH (5.0-9.0) Ur Specific [place] (1.005-1.025) Urine Protein (Neg-Trace) mg/dL Urine Glucose (UA) (Negative) mg/dL Urine Ketones (Negative) mg/dL Urine Blood (Negative) Urine Nitrite (Negative) Ur Leukocyte Esterase (Negative) Urine RBC (0-2) /HPF Urine WBC (0-5) /HPF Ur Squamous Epith Cells (0-2) /HPF Urine Bacteria (None Seen) Hyaline Casts (0-2) /LPF Influenza Type A (PCR) NEGATIVE (Negative) Influenza Type B (PCR) NEGATIVE (Negative) RSV RNA Qual (PCR) NEGATIVE (Negative) SARS-CoV-2 RNA (RT-PCR) NEGATIVE (Negative) 0110/19/24 10/19/24 Range/Units 19:27 19:54 22:12 WBC (4.8-10.8) X10*3/uL RBC (4.20-5.50) X10*6/uL Hgb (12.0-16.0) g/dl Hct (37.0-47.0) % MCV (80.0-98.0) fL MCH (27.0-33.0) pg MCHC (31.0-35.0) g/dl RDW (11.0-16.0) % Plt Count (160-400) X10*3/uL MPV (9.4-12.3) fL Immature Gran % (Auto) (0.0-0.4) % Neut % (Auto) (45-73) % Lymph % (Auto) (20-40) % [place] % (Auto) (2-11) % Eos % (Auto) (0-4) % Baso % (Auto) (0-2) % Lymph # (Auto) (1.2-4.9) X10*3/uL [place] # (Auto) (0.1-1.2) X10*3/uL Eos # (Auto) (0.0-0.4) X10*3/uL Baso # (Auto) (0.0-0.2) X10*3/uL Abs Immat Gran (auto) (0.00-0.03) X10*3/uL Absolute Neuts (auto) (2.0-8.3) x10*3/uL Absolute Nucleated RBC (0.0-0.012) X10*3/uL Nucleated RBC % (auto) (0.0-0.2) /100WBC PT (10.9-12.4) SEC INR (0.9-1.1) Sodium (135-145) mmol/L Potassium (3.3-5.1) mmol/L Chloride (96-108) mmol/L Carbon Dioxide (22-29) mmol/L Anion Gap (12-20) BUN (9-16) mg/dL Creatinine (0.5-1.4) mg/dL Estim Creat Clear Calc Estimated GFR POC Glucose 165 H (60-115) mg/dL Random Glucose (60-115) mg/dL Calcium (8.4-10.2) mg/dL Magnesium 1.3 L* (1.6-2.6) mg/dL Total Bilirubin (0.0-1.0) mg/dL AST (5-31) U/L ALT (0-31) U/L Alkaline Phosphatase (39-117) U/L Troponin I High Sens (<3.5-17.0) ng/L Total Protein (6.5-8.0) g/dL Albumin (3.5-5.0) g/dL Lipase (8-78) U/L Beta-Hydroxybutyrate (0.02-0.27) mmol/L Urine Color Dark Yellow Urine Appearance Turbid Urine pH 5.5 (5.0-9.0) Ur Specific [place] 1.025 (1.005-1.025) Urine Protein Trace (Neg-Trace) mg/dL Urine Glucose (UA) 100 H (Negative) mg/dL Urine Ketones 15 (Negative) mg/dL Urine Blood Negative (Negative) Urine Nitrite Negative (Negative) Ur Leukocyte Esterase Moderate (2+) H (Negative) Urine RBC 0-2 (0-2) /HPF Urine WBC >50 H (0-5) /HPF Ur Squamous Epith Cells >20 (0-2) /HPF Urine Bacteria 4+ (None Seen) Hyaline Casts 3-5 (0-2) /LPF Influenza Type A (PCR) (Negative) Influenza Type B (PCR) (Negative) RSV RNA Qual (PCR) (Negative) SARS-CoV-2 RNA (RT-PCR) (Negative) 10/20/24 Range/Units 01:25 WBC (4.8-10.8) X10*3/uL RBC (4.20-5.50) X10*6/uL Hgb (12.0-16.0) g/dl Hct (37.0-47.0) % MCV (80.0-98.0) fL MCH (27.0-33.0) pg MCHC (31.0-35.0) g/dl RDW (11.0-16.0) % Plt Count (160-400) X10*3/uL MPV (9.4-12.3) fL Immature Gran % (Auto) (0.0-0.4) % Neut % (Auto) (45-73) % Lymph % (Auto) (20-40) % [place] % (Auto) (2-11) % Eos % (Auto) (0-4) % Baso % (Auto) (0-2) % Lymph # (Auto) (1.2-4.9) X10*3/uL [place] # (Auto) (0.1-1.2) X10*3/uL Eos # (Auto) (0.0-0.4) X10*3/uL Baso # (Auto) (0.0-0.2) X10*3/uL Abs Immat Gran (auto) (0.00-0.03) X10*3/uL Absolute Neuts (auto) (2.0-8.3) x10*3/uL Absolute Nucleated RBC (0.0-0.012) X10*3/uL Nucleated RBC % (auto) (0.0-0.2) /100WBC PT (10.9-12.4) SEC INR (0.9-1.1) Sodium (135-145) mmol/L Potassium (3.3-5.1) mmol/L Chloride (96-108) mmol/L Carbon Dioxide (22-29) mmol/L Anion Gap (12-20) BUN (9-16) mg/dL Creatinine (0.5-1.4) mg/dL Estim Creat Clear Calc Estimated GFR POC Glucose 175 H (60-115) mg/dL Random Glucose (60-115) mg/dL Calcium (8.4-10.2) mg/dL Magnesium (1.6-2.6) mg/dL Total Bilirubin (0.0-1.0) mg/dL AST (5-31) U/L ALT (0-31) U/L Alkaline Phosphatase (39-117) U/L Troponin I High Sens (<3.5-17.0) ng/L Total Protein (6.5-8.0) g/dL Albumin (3.5-5.0) g/dL Lipase (8-78) U/L Beta-Hydroxybutyrate (0.02-0.27) mmol/L Urine Color Urine Appearance Urine pH (5.0-9.0) Ur Specific [place] (1.005-1.025) Urine Protein (Neg-Trace) mg/dL Urine Glucose (UA) (Negative) mg/dL Urine Ketones (Negative) mg/dL Urine Blood (Negative) Urine Nitrite (Negative) Ur Leukocyte Esterase (Negative) Urine RBC (0-2) /HPF Urine WBC (0-5) /HPF Ur Squamous Epith Cells (0-2) /HPF Urine Bacteria (None Seen) Hyaline Casts (0-2) /LPF Influenza Type A (PCR) (Negative) Influenza Type B (PCR) (Negative) RSV RNA Qual (PCR) (Negative) SARS-CoV-2 RNA (RT-PCR) (Negative) Critical Care Time Critical Care Time Critical Care Time: Yes Total Critical Care Time: 45 Attestation: I have personally provided critical care time. Time includes review of lab data, radiology results, discussion with consultants, and monitoring for potential decompensation. Intervention performed as documented. Discharge Plan Discharge Clinical Impression: Hypomagnesemia, Acute hyperglycemia Patient Disposition: Home, Self-Care Instructions: Diabetic Hyperglycemia (ED), Hypomagnesemia (ED) Additional Instructions: Please follow-up with your primary care physician tomorrow. If you have any worsening or new symptoms, please return to the emergency room or call 911 Prescriptions: No Action aripiprazole 10 mg tablet,disintegrating 10 mg PO DAILY Trulicity 1.5 mg/0.5 mL pen injector 1.5 mg subcut TU guaifenesin 100 mg/5 mL Liquid 200 mg PO Q4H PRN (Reason: Cough) acetaminophen 650 mg Tablet Extended Release 650 mg PO Q4H PRN (Reason: Fever Or Pain) lorazepam 0.5 mg tablet 0.5 mg PO DAILY PRN (Reason: Anxiety) alum-mag hydroxide-simeth [Mylanta Maximum Strength] 400-400-40 mg/5 mL Suspension 10 ml PO Q6H PRN (Reason: Heartburn) rivastigmine 9.5 mg/24 hour patch 24 hour 1 patch topical DAILY mirabegron [Myrbetriq] 25 mg tablet extended release 24 hr 25 mg PO DAILY Probiotic 10 billion cell Capsule 10,000 mmu cells PO BID carbidopa-levodopa 25-100 mg tablet 1 tab PO TID azithromycin 500 mg Tablet 500 mg PO Q24H Qty: 5 0RF prednisone 20 mg tablet 40 mg PO DAILY Qty: 10 0RF albuterol sulfate 90 mcg/actuation HFA aerosol inhaler 2 puff inhalation Q6H PRN (Reason: shortness of breath or wheezing) Qty: 8.5 0RF lorazepam 0.5 mg tablet 0.5 mg PO BID memantine 10 mg tablet 10 mg PO BID metformin 500 mg tablet extended release 24 hr 1,500 mg PO DAILY lisinopril 10 mg tablet 10 mg PO DAILY simvastatin 20 mg tablet 20 mg PO BEDTIME Print Language: Luxembourgish
[2024-10-19 12:59] VITALS: BP 100/54; PULSE 129; RESP 20; TEMP 36.3; O2SAT 94; BMI 34.0
[2024-10-19 14:49] LABS: MANUAL DIFF FLAG NO
[2024-10-19 14:57] LABS: Basophils Percent Auto 0.2 % (0-2); Eosinophils Absolute Auto 0.1 X10*3/uL (0.0-0.4); Eosinophils Percent Auto 0.4 % (0-4); Hematocrit 41.2 % (37.0-47.0); Hemoglobin 13.9 g/dl (12.0-16.0); Imm Gran Abs Auto 0.12 X10*3/uL (0.00-0.03); Imm Gran Pct Auto 0.7 % (0.0-0.4); Lymphocytes Percent Auto 5.8 % (20-40); Mean Corpuscular HGB Conc 33.7 g/dl (31.0-35.0); Mean Corpuscular Hemoglobin 29.6 pg (27.0-33.0); Mean Corpuscular Volume 87.8 fL (80.0-98.0); Mean Platelet Volume 9.4 fL (9.4-12.3); Monocytes Percent Auto 6.2 % (2-11); Neutrophils Absolute Auto 14.4 x10*3/uL (2.0-8.3); Neutrophils Percent Auto 86.7 % (45-73); Platelet Count 321 X10*3/uL (160-400); Prothrombin Time 11.6 SEC (10.9-12.4); Red Blood Count 4.69 X10*6/uL (4.20-5.50); Red Cell Distribution Width 12.4 % (11.0-16.0); White Blood Count 16.7 X10*3/uL (4.8-10.8)
[2024-10-19 15:29] LABS: Influenza A PCR NEGATIVE (Negative); Influenza B PCR NEGATIVE (Negative); Resp Syncy Virus RNA Qual PCR NEGATIVE (Negative); SARS COV2 PCR INHOUSE NEGATIVE (Negative)
[2024-10-19 15:57] LABS: Alanine Aminotransferase 20 U/L (0-31); Albumin Level 4.3 g/dL (3.5-5.0); Anion Gap 16 (12-20); Aspartate Amino Transferase 23 U/L (5-31); Beta-Hydroxybutyrate 0.24 mmol/L (0.02-0.27); Bilirubin Total 1.4 mg/dL (0.0-1.0); Blood Urea Nitrogen 18 mg/dL (9-16); Calcium 8.4 mg/dL (8.4-10.2); Carbon Dioxide 24 mmol/L (22-29); Chloride 102 mmol/L (96-108); Creatinine Clr Calc Pharmacy 61.5; Estimated Glomerular Filt Rate > 60; Glucose Random 221 mg/dL (60-115); Lipase 13 U/L (8-78); Magnesium 1.2 mg/dL (1.6-2.6); Potassium 5.1 mmol/L (3.3-5.1); Sodium 137 mmol/L (135-145); Total Protein 7.1 g/dL (6.5-8.0)
[2024-10-19 16:45] LABS: Alkaline Phosphatase 96 U/L (39-117)
--- NOTE | 2024-10-19 19:09 | ECG_ITS ---
Test Reason : ABD PAIN Blood Pressure : / mmHG Vent. Rate : 096 BPM Atrial Rate : 096 BPM P-R Int : 148 ms QRS Dur : 074 ms QT Int : 348 ms P-R-T Axes : 045 004 026 degrees QTc Int : 439 ms Normal sinus rhythm Low voltage QRS Borderline ECG When compared with ECG of 03-OCT-2024 03:15, No significant change was found Referred By: Peace Mcbride Electronically Signed By:BRAULIO RAMIREZ MD
[2024-10-19 19:22] VITALS: BP 129/67; PULSE 108; RESP 16; TEMP 36.9; O2SAT 96
[2024-10-19 19:51] LABS: Troponin-I High Sensitivity < 2.7 ng/L (<3.5-17.0)
[2024-10-19 19:53] LABS: Magnesium 1.3 mg/dL (1.6-2.6)
[2024-10-19 19:58] LABS: Glucose, Whole Blood 165 mg/dL (60-115)
[2024-10-19 21:51] VITALS: BP 124/61; PULSE 101; RESP 12; TEMP 36.5; O2SAT 92
--- NOTE | 2024-10-19 22:09 | MHC.EDTECH ---
pt ambulated to bathroom with no assistance
[2024-10-19 22:17] LABS: Appearance Urine Turbid; Color Urine Dark Yellow; Glucose Urine UA 100 mg/dL (Negative); Leukocyte Esterase Urine Moderate (2+) (Negative); Nitrite Urine Negative (Negative); PH 5.5 (5.0-9.0); Specific Gravity - Urine 1.025 (1.005-1.025); UMIC TRIGGER UACC YES; Urine Blood Negative (Negative); Urine Ketones 15 mg/dL (Negative); Urine Protein Trace mg/dL (Neg-Trace)
[2024-10-19 22:22] LABS: Bacteria Urine 4+ (None Seen); RBC Urine 0-2 /HPF (0-2); Squamous Epithelial Cell Urine >20 /HPF (0-2); UACC Culture Trigger YES; WBC Urine >50 /HPF (0-5)
[2024-10-19] MEDS: Magnesium Sulfate/H2O 2 GM/50 ML PIGGYBACK IV (23:55)
[2024-10-20 00:46] VITALS: BP 120/56; PULSE 104; RESP 18; TEMP 36.8; O2SAT 93
[2024-10-20 01:29] LABS: Glucose, Whole Blood 175 mg/dL (60-115)
[2024-10-20 05:38] LABS: Magnesium 2.1 mg/dL (1.6-2.6)
[2024-10-20 06:31] VITALS: BP 132/71; PULSE 95; RESP 16; TEMP 36.8; O2SAT 94
[2024-10-20 06:57] VITALS: BP 132/71; PULSE 95; RESP 16; TEMP 36.8; O2SAT 94
== END 2024-10-20 07:00 | disposition home or self-care (01) ==
PROVIDERS: Registered Nurse Emergency; Emergency Provider Emergency Medicine
DX: E11.65 Type 2 diabetes mellitus with hyperglycemia (principal); E83.42 Hypomagnesemia; R10.9 Unspecified abdominal pain; R11.2 Nausea with vomiting, unspecified; I10 Essential (primary) hypertension; E78.5 Hyperlipidemia, unspecified; D64.9 Anemia, unspecified; G30.9 Alzheimer's disease, unspecified; F02.80 Dementia in other diseases classified elsewhere, unspecified severity, without behavioral disturbance, psychotic disturbance, mood disturbance, and anxiety; Z03.818 Encounter for observation for suspected exposure to other biological agents ruled out; Z79.84 Long term (current) use of oral hypoglycemic drugs; Z79.02 Long term (current) use of antithrombotics/antiplatelets; Z79.899 Other long term (current) drug therapy; Z79.85 Long-term (current) use of injectable non-insulin antidiabetic drugs
CPT/HCPCS: 0241U; 36415; 80053; 81001; 82010; 82947; 83690; 83735; 84484; 85025; 85610; 87086; 93005; 96365; 96366; 99284; 99285; J3475

== ENCOUNTER → 2024-10-19 19:09 | Outpatient (BNV) | payer MEDICARE, MEDICAID, SELFPAY | PROVIDERS: Emergency Provider Emergency Medicine; Visit Provider Internal Medicine Cardiovascular Disease | DX: R10.9 Unspecified abdominal pain (principal) | CPT/HCPCS: 93010 ==

== ENCOUNTER 2025-01-29 07:34 | Outpatient (AMB) | payer MEDICARE, MEDICAID, SELFPAY ==
--- OUTSIDE RECORDS SUMMARY | 2025-01-29 07:36 | XMS_ITS | Encounter Summary ---
Author Organization [employer] Address [address] [facility] [address] [place] [address] Care Team Providers Care Gang Vibrator Operator Name Role Phone Abrahan Cabezas DDS Primary Care Provider [phone] Jaime Page Unavailable Jaime Page Unavailable Jaime Page Primary Care Provider [phone] Encounter Details Date Type Department Care Team (Latest Contact Info) Description 06/28/2019 Abstract [facility] Dental, Provider, DDS Social History Tobacco Use Types Packs/Day Years Used Date Smoking Tobacco: Never Assessed Comments Unknown Sex and Gender Information Value Date Recorded Sex Assigned at Female 10/19/2022 10:13 AM EST Legal Sex Female 8:37 PM EST Gender Identity Female 08/27/2022 8:37 PM EST Sexual Orientation Straight 08/27/2022 9: 05 PM EST Sexual Orientation Choose not to disclose 2021 9:05 PM EST documented as of this encounter Plan of Treatment Not on file documented as of this encounter Visit Diagnoses Not on filedocumented in this encounter Care Teams Gang Vibrator Operator Relationship Specialty Start Date End Date Abrahan Cabezas DDS [address] [place] [address] [place] [id number] PCP - General Dentist 08/13/22 03/10/23 Jaiem aPge PA [address] [place] [id number] PCP - General Family Medicine 03/11/23 Jaime Page PA [address] [place] [address] Family Medicine 08/13/22 03/10/23 Jaime Page PA [address] [place] [address] Family Medicine 08/13/22 03/10/23 documented as of this encounter
--- OUTSIDE RECORDS SUMMARY | 2025-01-29 07:37 | XMS_ITS | Encounter Summary ---
Author Organization [employer] Address [address] [facility] [address] [place] [address] Care Team Providers Care Re Etcher Name Role Phone Jaime Page Primary Care Provider [phone] Encounter Details Date Type Department Care Team (Late st Contact Info) Description 05/03/2024 Orders Only [facility] [address] [place] [address] Jaime Page PA [address] [place], [place] [id number] Mixed incontinence Social History Tobacco Use Types Packs/Day Years Used Date Smoking Tobacco: Never Passive Smoke Exposure: Current Smokeless Tobacco: Never Alcohol Use Standard Drinks/Week Comments Not 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 I have mimi keita 08/16/[address] you li ve. Do you have problems with any of the following? None of the above 08/16/2023 Food Insecurity Answer Date Recorded Within the past 12 months, y ou worried that your food would run out before you got money to buy more: Never True 08/16/2023 Within the past 12 months,th e food you bought just didn't last and you didn't have enough money to get more: Never True Transportation Answer Date Recorded In the past 12 months, has l ack of transportation kept you from medical appts, meetings, work or from getting things needed for daily living? No 08/16/2023 Utilities Answer Date Recorded In the past 12 months, has t he electric, gas, oil or water company threatened to shut off services in your home? No 08/16/2023 Depression Answer Date Recorded Patient Health Questionnaire-2 Score 0 06/27/2023 Comments No Sex and Gender Information Value Date Recorded Sex Assigned at Female 10/19/2022 10:13 AM EST Legal Sex Female 8:37 PM EST Gender Identity Female 08/27/2022 8:37 PM EST Sexual Orientation Straight 08/27/2022 9: 05 PM EST Sexual Orientation Choose not to disclose 2021 9:05 PM EST documented as of this encounter Plan of Treatment Not on file documented as of this encounter Procedures Procedure Name Priority Date/Time Associated Diagnosis Comments AMB REFERRAL TO UROLOGY Routine 04/24/2024 Mixed incontinence US, RETROPERITNL ABD, LTD Routine 2023 2:39 PM EDT documented in this encounter Results * Referral to Urology (04/24/2024) us Jaime DE JESUS OUTPATIENT REFERRAL ORDERABLES F inal Result * Retroperitoneal Ultrasound, Abdomen Ltd (04/05/2024 2:39 PM EDT) us Not In System Provider IN CLINIC/BEDSIDE ORDERAB LES Edited Result - Final documented in this encounter Visit Diagnoses Diagnosis Mixed incontinence Mixed incontinence urge and stress (male)(female) documented in this encounter Care Teams Re Etcher Relationship Specialty Start Date End Date Jaime Page PA [address] [place] [id number] PCP - General Family Medicine 03/11/23 documented as of this encounter
--- OUTSIDE RECORDS SUMMARY | 2025-01-29 07:37 | XMS_ITS | Encounter Summary ---
Author Organization [facility] Address [address] [place] [address] Care Team Providers Care Electric Operator Name Role Phone Subhash Garcia MD Primary Care Provider [phone] Encounter Details Date Type Department Care Team (Late st Contact Info) Description 09/17/2024 Lab Requisition [facility] - Main Lab [address] [facility] [place] [address] Subhash Garcia MD [address] [place] [address] Type 2 diabetes mellitus without complications (CMS/HCC V24, CMS/HCC V28) Social History Tobacco Use Types Packs/Day Years Used Date Smoking Tobacco: Never Assessed Comments Unknown Sex and Gender Information Value Date Recorded Sex Assigned at Not on file Legal Sex Female 12:54 PM EST Gender Identity Not on file Sexual Orientation Not on file documented as of this encounter Plan of Treatment Not on file documented as of this encounter Procedures Procedure Name Priority Date/Time Associated Diagnosis Comments HEMOGLOBIN A1C Routine 09/18/2024 6:51 AM EST Type 2 diabetes mellitus without complications (CMS/[facility]) documented in this encounter Results * (ABNORMAL) Hemoglobin A1c (09/18/2024 6:51 AM EST) Hemoglobin A1C 7.4(H) <6.5 % LAB CHEMISTRY METHOD 09/18/2024 2:[address] [facility] Mean Bld Glu Estim. 166 mg/dL LAB CHEMISTRY METHOD 09/18/2024 2:[address] [facility] Blood Venous blood specimen / Unknown Venipuncture / Unknown 09/18/2024 6:51 AM EST 09/18/2024 11:53 AM EST us Subhash Garcia MD LAB BLOOD ORDERABLES Final Result [facility] [address] [place] [address], documented in this encounter Visit Diagnoses Diagnosis Type 2 diabetes mellitus without complications (CMS/HCC V24, CMS/HCC V28) documented in this encounter Care Teams Electric Operator Relationship Specialty Start Date End Date Subhash Garcia MD [address] [place] [id number] PCP - General Internal Medicine 09/17/24 documented as of this encounter
--- OUTSIDE RECORDS SUMMARY | 2025-01-29 07:37 | XMS_ITS | Encounter Summary ---
Author Organization [employer] Address [address] [facility] [address] [place] [address] Care Team Providers Care Building Consultant Name Role Phone Jaime Page Primary Care Provider [phone] Encounter Details Date Type Department Care Team (Late st Contact Info) Description 12/01/2023 Abstract [facility] [address] [place] [address] Jaime Page PA [address] [place] [address] Social History Tobacco Use Types Packs/Day Years [...] on filedocumented in this encounter Care Teams Building Consultant Relationship Specialty Start Date End Date Jaime Page PA [address] [place] [id number] PCP - General Family Medicine 03/11/23 documented as of this encounter
--- OUTSIDE RECORDS SUMMARY | 2025-01-29 07:37 | XMS_ITS | Clinical Summary ---
Author Organization [facility] Address [address] [place] [address] Phone Care Team Providers Care Nurse Recruiter Name Role Phone Subhash Garcia MD Primary Care Provider [phone] Encounters Date Type Department Care Team Description 12/04/2024 Lab Requisition [facility] - Main Lab [address] 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 from Last 3 Months Social History Tobacco Use Types Packs/Day Years Used Date Smoking Tobacco: Never Assessed Comments Unknown Sex and Gender Information Value Date Recorded Sex Assigned at Not on file Legal Sex Female 12:54 PM EST Gender Identity Not on file Sexual Orientation Not on file Plan of Treatment Health Maintenance Due Date Last Done Comments Breast Cancer Screening 1955 Diabetes: Annual Foot Exam 12/22/1967 Diabetes: Annual Retina Eye Exam 12/22/1967 COVID-19 Vaccine () 06/17/2024 01/21/2023, 01/26/2022, 12/26/2020, Additional history exists Colorectal Cancer Screening: Colonoscopy 09/17/2024 Depression Screening 09/17/2024 Diabetes: Annual Urine Albumin-Creatinine Ratio (uACR) 09/17/2024 Falls Risk Assessment 09/17/2024 Hepatitis C Screening 09/17/2024 Medicare Annual Wellness Visit 09/17/2024 Osteoporosis Screening (Bone Density Screening) 09/17/2024 Social Influencers of Health Screening 09/17/2024 Diabetes: Blood Sugar Control Test (HGBA1C) 06/03/2025 12/04/2024, 09/18/2024, 06/27/2023 Influenza Vaccine (Season Ended) 2025 06/12/2022, 05/26/2021, 05/30/2020, Additional history exists Diabetes: Annual GFR (Glomerular Filtration Rate) 12/04/2025 12/04/2024 Hypertension/CHF/CAD Annual BMP Blood Test 12/04/2025 12/04/2024 Pneumococcal Vaccine: 50+ Years (3 of 3 - PCV20 or PCV21) 04/15/2026 04/15/2021, 04/05/2019, 05/18/2014, Additional history exists Cholesterol Screening (Lipid Panel) 12/04/2029 12/04/2024, 06/27/2023 DTaP,Tdap,and Td Vaccines (4 - Td or Tdap) 05/30/2030 05/30/2020, 01/11/2018, 02/16/2008 RSV Immunization Adult Patients (1 - 1-dose 75+ series) 2032 Zoster Vaccines Completed 03/10/2018, 01/02/2018 MMR Vaccines Aged Out 01/06/2020 No longer eligi ble based on patient's age to complete this topic Hepatitis A Vaccines Aged Out 05/30/2020 No long er eligible based on patient's age to complete this topic Hepatitis B Vaccines Completed 05/30/2020, 05/24/2006, 01/03/2006, Additional history exists HIB Vaccines Aged Out No longer eligi ble based on patient's age to complete this topic HPV Vaccines Aged Out No longer eligi ble based on patient's age to complete this topic IPV Vaccines Aged Out No longer eligi ble based on patient's age to complete this topic Meningococcal ACWY Vaccine Aged Out N o longer eligible based on patient's age to complete this topic Meningococcal B Vaccine Aged Out No l onger eligible based on patient's age to complete this topic RSV Immunization Patients Under 20 months Aged Out No longer eligible based on patient's age to complete this topic Varicella Vaccines Aged Out No longer eligible based on patient's age to complete this topic Procedures Procedure Name Priority Date/Time Associated Diagnosis Comments VITAMIN B12 Routine 12/04/2024 6:04 AM EST Hyperlipidemia, unspecified Essential (primary) hypertension Type 2 diabetes mellitus without complications (CMS/HCC) Other longterm (current) drug therapy HEMOGLOBIN A1C Routine 12/04/2024 6:04 AM EST Hyperlipidemia, unspecified Essential (primary) hypertension Type 2 diabetes mellitus without complications (CMS/HCC) 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 THYROID STIMULATING HORMONE Routine 12/04/2024 6:04 AM EST Hyperlipidemia, unspecified Essential (primary) hypertension Type 2 diabetes mellitus without complications (CMS/HCC) 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 LIPID PANEL WITH REFLEX TO DIRECT LDL Routine 12/04/2024 6:04 AM EST Hyperlipidemia, unspecified Essential (primary) hypertension Type 2 diabetes mellitus without complications (CMS/HCC) Other longterm (current) drug therapy COMPREHENSIVE METABOLIC PANEL Routine 12/04/2024 6:04 AM EST Hyperlipidemia, unspecified Essential (primary) hypertension Type 2 diabetes mellitus without complications (CMS/HCC) Other longterm (current) drug therapy COMPLETE BLOOD COUNT Routine 12/04/2024 6:04 AM EST Hyperlipidemia, unspecified Essential (primary) hypertension Type 2 diabetes mellitus without complications (CMS/HCC) 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 from Last 3 Months Results * (ABNORMAL) Lipid panel with reflex to direct LDL (12/04/2024 6:04 AM EST) Cholesterol 98 0 - 200 mg/dL LAB CHEMISTRY METHOD 12/04/2024 12:42 PM [facility] Triglycerides 172(H) 0 - 150 mg/dL LAB CHEMISTRY METHOD 12/04/2024 12:42 PM [facility] HDL 34(L) >=40 mg/dL LAB CHEMISTRY METHOD 12/04/2024 12:42 PM [facility] LDL Calculated 30 0 - 100 mg/dL LAB CHEMISTRY METHOD 12/04/2024 12:42 PM [facility] VLDL Cholesterol Allen 34.4 mg/dL LAB CHEMISTRY METHOD 12/04/2024 12:42 PM [facility] Non HDL Chol. (LDL+VLDL) 64 <145 mg/dL LAB CHEMISTRY METHOD 12/04/2024 12:42 PM [facility] Chol/HDL Ratio 2.9 0.0 - 4.4 LAB CHEMISTRY METHOD 12/04/2024 12:42 PM [facility] Blood Venous blood specimen / Unknown Venipuncture / Unknown 12/04/2024 6:04 AM EST 12/04/2024 10:12 AM EST us Subhash Garcia MD LAB BLOOD ORDERABLES Final Result [facility] [address] [place] [address], * (ABNORMAL) Complete blood count (12/04/2024 6:04 AM EST) WBC 6.8 4.8 - 10.8 K/mcL LAB HEMETOLOGY METHOD 12/04/2024 11:42 AM [facility] RBC 4.10 3.80 - 4.80 M/mcL LAB HEMETOLOGY METHOD 12/04/2024 11:42 AM [facility] Hemoglobin 12.1 11.5 - 16.0 g/dL LAB HEMETOLOGY METHOD 12/04/2024 11:42 AM [facility] Hematocrit 38.2 35.0 - 47.0 % LAB HEMETOLOGY METHOD 12/04/2024 11:42 AM [facility] MCV 92.7 79.0 - 98.0 FL LAB HEMETOLOGY METHOD 12/04/2024 11:42 AM [facility] MCH 29.4 27.0 - 32.0 pcg LAB HEMETOLOGY METHOD 12/04/2024 11:42 AM [facility] MCHC 31.7(L) 32.0 - 37.0 g/dL LAB HEMETOLOGY METHOD 12/04/2024 11:42 AM EST [facility] RDW 12.8 11.0 - 15.0 % LAB HEMETOLOGY METHOD 12/04/2024 11:42 AM EST [facility] Platelets 314 130 - 400 K/mcL LAB HEMETOLOGY METHOD 12/04/2024 11:42 AM [facility] MPV 9.7 7.0 - 11.0 FL LAB HEMETOLOGY METHOD 12/04/2024 11:42 AM [facility] NRBC 0.0 <1.0 % LAB HEMETOLOGY METHOD 12/04/2024 11:42 AM [facility] NRBC Absolute 0.00 <0.10 K/mcL LAB HEMETOLOGY METHOD 12/04/2024 11:42 AM [facility] Blood Venous blood specimen / Unknown Venipuncture / Unknown 12/04/2024 6:04 AM EST 12/04/2024 10:12 AM EST us Subhash Garcia MD LAB BLOOD ORDERABLES Final Result [facility] [address] [place] [address], [place] [phone] * Thyroid stimulating hormone (12/04/2024 6:04 AM EST) TSH 2.31 0.40 - 4.00 mcIU/mL LAB CHEMISTRY METHOD 12/04/2024 12:07 PM EST [facility] Blood Venous blood specimen / Unknown Venipuncture / Unknown 12/04/2024 6:04 AM EST 12/04/2024 10:12 AM EST us Subhash Garcia MD LAB BLOOD ORDERABLES Final Result [facility] [address] [place] [address], [place] [phone] * (ABNORMAL) Hemoglobin A1c (12/04/2024 6:04 AM EST) [facility] Hemoglobin A1C 8.3(H) <6.5 % LAB CHEMISTRY METHOD 12/04/2024 2:13 PM EST [facility] Mean Bld Glu Estim. 192 mg/dL LAB CHEMISTRY METHOD 12/04/2024 2:13 PM EST [facility] Blood Venous blood specimen / Unknown Venipuncture / Unknown 12/04/2024 6:04 AM EST 12/04/2024 10:12 AM EST us Subhash Garcia MD LAB BLOOD ORDERABLES Final Result Performing Organization Address City/[facility]/ZIP Co de Phone Number [facility] [address] [place] [address], [place] [phone] * Vitamin B12 (12/04/2024 6:04 AM EST) [facility] Vitamin B-12 518 250 - 900 pcg/mL LAB CHEMISTRY METHOD 12/04/2024 12:42 PM EST [facility] Blood Venous blood specimen / Unknown Venipuncture / Unknown 12/04/2024 6:04 AM EST 12/04/2024 10:12 AM EST us Subhash Garcia MD LAB BLOOD ORDERABLES Final Result [facility] [address] [place] [address], [place] [phone] * (ABNORMAL) Comprehensive metabolic panel (12/04/2024 6:04 AM EST) [facility] Sodium 139 133 - 145 mmol/L LAB CHEMISTRY METHOD 12/04/2024 12:42 PM EST [facility] Potassium 5.0 3.5 - 5.5 mmol/L LAB CHEMISTRY METHOD 12/04/2024 12:42 PM EST [facility] Chloride 105 96 - 110 mmol/L LAB CHEMISTRY METHOD 12/04/2024 12:42 PM [facility] CO2 27 21 - 32 mmol/L LAB CHEMISTRY METHOD 12/04/2024 12:42 PM [facility] Anion Gap 7 3 - 11 LAB CHEMISTRY METHOD 12/04/2024 12:42 PM [facility] Glucose 161(H) 70 - 100 mg/dL LAB CHEMISTRY METHOD 12/04/2024 12:42 PM [facility] BUN 12 5 - 25 mg/dL LAB CHEMISTRY METHOD 12/04/2024 12:42 PM [facility] Creatinine 0.63 0.50 - 1.10 mg/dL LAB CHEMISTRY METHOD 12/04/2024 12:42 PM [facility] eGFR 98 >=60 mL/min/1. 73m2 LAB CHEMISTRY METHOD 12/04/2024 12:42 PM [facility] Comment:Calculation based on the??Chronic Kidney Disease Epidemiology Collaboration (CKD-EPI) equation refit??without adjustment for race. BUN/Creatinine Ratio 19.0 LAB CHEMISTRY METHOD 12/04/2024 12:42 PM [facility] Calcium 9.1 8.5 - 10.5 mg/dL LAB CHEMISTRY METHOD 12/04/2024 12:42 PM [facility] AST (SGOT) 17 10 - 42 unit/L LAB CHEMISTRY METHOD 12/04/2024 12:42 PM [facility] ALT (SGPT) 29 10 - 60 unit/L LAB CHEMISTRY METHOD 12/04/2024 12:42 PM [facility] Alkaline Phosphatase 95 42 - 121 unit/L LAB CHEMISTRY METHOD 12/04/2024 12:42 PM [facility] Total Protein 6.4 6.0 - 8.0 g/dL LAB CHEMISTRY METHOD 12/04/2024 12:42 PM [facility] Albumin 3.7 3.2 - 5.0 g/dL LAB CHEMISTRY METHOD 12/04/2024 12:42 PM EST [facility] Total Bilirubin 0.5 0.0 - 1.4 mg/dL LAB CHEMISTRY METHOD 12/04/2024 12:42 PM EST [facility] Blood Venous blood specimen / Unknown Venipuncture / Unknown 12/04/2024 6:04 AM EST 12/04/2024 10:12 AM EST Subhash Garcia MD LAB BLOOD ORDERABLES Final Result [facility] [address] [place] [address], from Last 3 Months Insurance MEDICAID - [place] MEDICARE Care Teams Nurse Recruiter Relationship Specialty Start Date End Date Subhash Garcia MD [address] [place] [id number] PCP - General Internal Medicine 12/2/24
--- OUTSIDE RECORDS SUMMARY | 2025-01-29 07:37 | XMS_ITS | Encounter Summary ---
Author Organization [facility] Address [address] [facility] [address] [place] [address] Care Team Providers Care Steam Fitter Supervisor Name Role Phone Jaime Page Primary Care Provider [phone] Reason for Visit * Reason Onset Date Comments release form 12/11/2024 Encounter Details Date Type Department Care Team ([facility] st Contact Info) Description 12/11/2024 Telephone [facility] [address] [place] [address] Jennifer Glaser DDS [address] [facility] [place] [address] release form Social History Tobacco Use Types Packs/Day Years [...] PM EST documented as of this encounter Miscellaneous Notes * Telephone Encounter - Jacki Harman - 12/11/2024 10:47 AM EST Release form scanned in yesterday. It was sent to [facility]. Release of records for dental treatment for patient. Nursing from facility patient is in is looking for notes on patients visit to be faxed [phone] documented in this encounter Plan of Treatment Not on file documented as of this encounter Visit Diagnoses Not on filedocumented in this encounter Care Teams Steam Fitter Supervisor Relationship Specialty Start Date End Date Jaime Page PA [address] [place] [id number] PCP - General Family Medicine 03/11/23 documented as of this encounter
--- OUTSIDE RECORDS SUMMARY | 2025-01-29 07:37 | XMS_ITS | Clinical Summary ---
Author Organization [employer] Address [address] [facility] [address] [place] [address] Care Team Providers Care Biodiesel Process Control Technician Name Role Phone Jaime Page Primary Care Provider [phone] Allergies No known active allergies Medications Blood Glucose Monitoring Suppl (FreeStyle Lite) device use once daily as directed with TEST STRIPS 01/02/20 22 Active FREESTYLE LITE test strip use to TEST BLOOD GLUCOSE once daily 05/26/20 22 Active FreeStyle lancets use to TEST BLOOD GLUCOSE once daily 12/03/19 22 Active aluminum & magnesium hydroxide-simethic one (Mylanta) 200-200-20 MG/5ML oral suspension Take 10 mL by mouth every 6 (six) hours if needed for indigestion or heartburn. 769 mL 03/11/20 23 Active Additional Information Patient not taking.Reported on 03/26/2024 ARIPiprazole (Abilify) 10 MG tabletIndications: Schizophreniform disorder (CMS/HCC) Take 1 tablet (10 mg) by mouth in the morning. 90 tablet 06/27/20 23 Active lisinopril 10 MG tabletIndications: Primary hypertension Take 1 tablet (10 mg) by mouth in the morning. 90 tablet 06/27/20 23 Active memantine (Namenda) 10 MG tabletIndications: Major neurocognitive disorder (CMS/HCC) Take 1 tablet (10 mg) by mouth every 12 (twelve) hours. 180 tablet 06/27/20 23 Active metFORMIN XR (Glucophage-XR) 500 MG 24 hr tabletIndications: Type 2 diabetes mellitus with hyperglycemia, without long-term current use of insulin (CMS/HCC) Take 3 tablets (1,500 mg) by mouth with evening meal. Do not crush, chew, or split. 270 tablet 06/27/20 23 Active rivastigmine (Exelon) 9.5 MG/24HRIndications :Major neurocognitive disorder (CMS/HCC) Place 1 patch on the skin in the morning. 90 patch 06/27/20 23 Active simvastatin (Zocor) 20 MG tabletIndications: Type 2 diabetes mellitus with hyperglycemia, without long-term current use of insulin (CMS/HCC) Take 1 tablet (20 mg) by mouth at bedtime. 90 tablet 06/27/20 23 Active LORazepam (Ativan) 0.5 MG tabletIndications: Schizophreniform disorder (CMS/HCC) Take 1 tablet (0.5 mg) by mouth 2 times daily for 28 days. 56 tablet 07/22/20 23 Active memantine (Namenda) 10 MG tablet Take by mouth. Activ e acetaminophen (Tylenol) 325 MG tablet Take by mouth. Activ e guaiFENesin (Robitussin) 100 MG/5ML liquid Take 200 mg by mouth if needed in the morning, at noon, and at bedtime for cough. Active carbidopa-levodopa (Sinemet) 25-100 MG tablet Take 1 tablet by mouth 3 times daily. Active dulaglutide (Trulicity) 0.75 MG/0.5ML solution pen-injectorIndica tions:Type 2 diabetes mellitus with hyperglycemia, without long-term current use of insulin ([facility]) Inject 1.5 mg under the skin 1 (one) time per week. 8 each 02/09/20 24 Active saccharomyces boulardii (Florastor) 250 MG capsule Take 1 capsule (250 mg) by mouth 2 times daily. 90 capsule 05/31/20 24 Active amoxicillin (Amoxil) 500 MG capsule Take 1 capsule (500 mg) by mouth every 8 (eight) hours for 7 days. 21 capsule 01/03/20 25 025 ibuprofen 600 MG tablet Take 1 tablet (600 mg) by mouth 3 times daily for 10 days. 30 tablet 01/03/20 25 025 Active Problems Problem Noted Date Diagnosed Date Overactive bladder 02/22/2024 Primary hypertension 06/27/2023 Assessment & Plan (06/27/2023 8:43 AM EDT): BP nearly at goal <130/80 on current med regimen, tolerating well with no side effects. Asymptomatic and clinically well-appearing. Continue current meds and will continue to monitor. Major neurocognitive disorder 01/21/2023 Assessment & Plan (06/27/2023 8:41 AM EDT): Seemingly stable on presentation today. Bridge scripts provided. Schedule w/ neurology. Alzheimer's type dementia 01/21/2023 Assessment & Plan (01/21/2023 2:33 PM EDT): Patient currently appearing clinically well and stable status post 3-month hospitalization. Continue current med regimen, and referral placed for specialist care. Reviewed hospital discharge documentation and reconciled med list. Pt and aide from [facility] are unsure if they are going to continue with PCP at [facility] (if so then will schedule transfer visit with either myself or another provider), or establish with a practice more local to [facility]. 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 Referral information provided - discussed w/ patient and aide who will schedule pt specialist appts w/ psychiatry and neurology for ongoing care. In interim will continue to rx bridge scripts. Assessment & Plan (01/21/2023 2:17 PM EDT): Patient currently appearing clinically well and stable status post 3-month hospitalization. Continue current med regimen, and referral placed for specialist care. Anemia 07/10/2012 Overview (09/27/2022): Note: History of Obesity 07/10/2012 Other and unspecified hyperlipidemia 06/26/2012 Type 2 diabetes mellitus 05/29/2012 Assessment & Plan (06/27/2023 8:44 AM EDT): Weight gain likely secondary to sedentary lifestyle w/ suboptimal diet, diabetes, and med s/e (abilifiy). Normal cardiopulm exam today, no edema, and no symptoms to suggest cardiopulm etiology. Repeat labs today. Increase trulicity to 1.5mg weekly for improved glycemic control (last A1c above goal <7%) and to help promote weight loss. Return 4-6 wks for f/u on effect/tolerability. May consider further dose increase at that time if needed. Assessment & Plan (01/21/2023 2:18 PM EDT): Restarting Trulicity 0.75 mg once weekly via shared decision making and will continue metformin XL 1500 mg daily. Patient due for repeat monitoring labs, ordered today and patient will have done at [facility] adjacent to [facility] where she currently lives. We will look out for results and dose adjust meds as needed. Encounters Date Type Department Care Team Description 01/02/2025 9:00 AM EDT Office Visit [facility] [address] [place] [address] Jennifer Glaser DDS 12/28/2024 Population Health Risk Score [facility] () Department [address] [id number] Provider, Population Health Generic 12/11/2024 Telephone [facility] [address] [place] [address] Jennifer Glaser DDS release form 11/30/2024 10:00 AM EST Office Visit [facility] [address] [place] [address] Jennifer Glaser DDS from Last 3 Months Immunizations Name Administration Dates Next Due Hep A / Hep B 05/30/2020 Hep B, adult 05/24/2006,01/03/2006,12/02/2005 Influenza injectable quadriv alent preservative free 06/12/2022,05/26/2021,05/30/2020,06/25,05/29/2018,05/19/2017 Influenza, IIV3, injectable 05/18/2014, 2,07/13/2010 Influenza, Unspecified 06/20/2013 Influenza, seasonal, injecta ble, preservative free 05/31/2016 MMR 01/06/2020 Moderna Covid-19 Vaccine 12+ 12/26/2020,11/28/19 21 PPD Test 11/10/2009 Pfizer Covid-19 Vaccine 12+ Bivalent 01/21/2023 Pfizer Covid-19 Vaccine 12+ romulo-sucrose (Pitt Cap) 01/26/2022 Pneumococcal Conjugate PCV 13 04/15/2021, 019 Pneumococcal Polysaccharide PPSV23 05/18/2014, TD (adult), 2 Lf tetanus tox oid, preservative free, adsorbed 02/16/2008 Tdap 05/30/2020,01/11/2018 Zoster, Recombinant 03/10/2018,01/02/2018 Social History Tobacco Use Types Packs/Day Years Used Date Smoking Tobacco: Never Passive Smoke Exposure: Current Smokeless Tobacco: Never Tobacco Cessation:Counseling Given: Not Answered Alcohol Use Standard Drinks/Week Comments Not 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 I have mimi neela 08/16/[address] you li [...] not to disclose 2021 9:05 PM EST Last Filed Vital Signs Vital Sign Reading Time Taken Comments Blood Pressure 118/70 01/02/2025 9:53 AM EDT Pulse 92 06/27/2023 7:44 AM EDT Temperature 36.1 ??C (96.9 ??F) 06/27/2023 7:44 AM ED T Respiratory Rate - - Oxygen Saturation 95% 06/27/2023 7:44 AM EDT Inhaled Oxygen Concentration - - Weight 80.3 kg (177 lb) 06/27/2023 7:44 AM EDT Height 153.7 cm (5' 0.5 ) 04/07/2022 3:18 PM EDT Body Mass Index 34 04/07/2022 3:18 PM EDT Plan of Treatment Health Maintenance Due Date Last Done Comments CT Colonography 1957 FIT DNA/Cologuard 1957 FIT 1957 FOBT 1957 Sigmoidoscopy 1957 Diabetes: Foot Exam 12/22/1967 Eye Exam 12/22/1967 Alcohol/Substance Use Screening 1969 Dental Prophylaxis 12/28/2019 06/28/2019, 0 05/06/2018, 09/14/2017, Additional history exists Mammogram 07/01/2021 07/01/2020, 06/17, 05/31/2019, Additional history exists Dental Oral Exam 05/12/2022 11/11/2021, 09/2019, 09/11/2018, Additional history exists Dental X-Ray: Bitewings 11/12/2022 11/11/19 22, 06/28/2019, 11/09/2018, Additional history exists Diabetes: Hemoglobin A1C 09/26/2023 023, 06/09/2022, 06/09/2022, Additional history exists Depression Screening 06/27/2024 06/27/2023, 06/27/20 23 Diabetes: Urine Protein Screening 06/27/2024 06/27/2023, 01/04/2022, 12/10/2021, Additional history exists Lipid Panel 06/27/2024 06/27/2023, 07/18, 03/13/2021, Additional history exists SDOH Screening 06/27/2024 06/27/2023 Dental X-Ray: Full Mouth 11/12/2024 022, 09/14/2017, 06/27/2012 Colonoscopy 07/21/2025 07/21/2020, 02/2020, 10/07/2014 Colorectal Cancer Screening 07/21/2025 Tobacco Screening 01/02/2026 01/02/2025 Pneumococcal Vaccine: 50+ Years (3 of 3 - PCV20 or PCV21) 04/15/2026 04/15/2021, 04/05/2019, 05/18/2014, Additional history exists HPV/Cotest 07/08/2026 07/08/2021 Pap Smear 07/08/2026 07/08/2021, 07/08/2021 DTaP/Tdap/Td Vaccines (3 - Td or Tdap) 05/30/2030 05/30/2020, 01/11/2018, 02/16/2008 RSV Patients and Patients Aged 60 years or older (1 - 1-dose 75+ series) 2032 Zoster Vaccines Completed 03/10/2018, 01/02/2018 Hepatitis A Vaccines Aged Out 05/30/2020 No long er eligible based on patient's age to complete this topic Hepatitis B Vaccines Completed 05/30/2020, 05/24/2006, 01/03/2006, Additional history exists Hepatitis C Screening Completed 08/10/2021 COVID-19 Vaccine Completed 07/25/2024, , 01/21/2023, Additional history exists Influenza Vaccine Completed 07/25/2024, , 06/12/2022, Additional history exists HIB Vaccines Aged Out No longer eligi ble based on patient's age to complete this topic HPV Vaccines Aged Out No longer eligi ble based on patient's age to complete this topic IPV Vaccines Aged Out No longer eligi ble based on patient's age to complete this topic Meningococcal Vaccine Aged Out No leonel alma eligible based on patient's age to complete this topic RSV under 20 months Aged Out No longe r eligible based on patient's age to complete this topic Rotavirus Vaccines Aged Out No longer eligible based on patient's age to complete this topic Procedures Procedure Name Priority Date/Time Associated Diagnosis Comments 13 EXTRACTION, ERUPTED TOOTH OR EXPOSED ROOT (ELEVATION/FORCEPS REMOVAL) Routine 01/02/2025 9:00 AM EDT 13 LIMITED ORAL EVALUATION - PROBLEM FOCUSED Routine 11/30/2024 10:00 AM EST MICROALBUMIN, RANDOM (W CREAT) Routine 06/27/2023 8:43 AM EDT LIPID PANEL, STANDARD Routine 06/27/2023 8:34 AM EDT HEMOGLOBIN A1C Routine 06/27/2023 8:33 AM EDT INTRAORAL - COMPLETE SERIES OF RADIOGRAPHIC IMAGES Routine 11/11/2021 12:00 AM EST PERIODIC ORAL EVALUATION - ESTABLISHED PATIENT Routine 11/11/2021 12:00 AM EST HM HEPATITIS C ANTIBODY Routine 08/10/2021 THIN PREP PAP, WITH HPV, GENOTYPE IF HPV+ Routine 07/08/2021 2:40 PM EDT HM PAP/HPV Routine 07/08/2021 HM COLONOSCOPY Routine 07/21/2020 HM MAMMOGRAPHY Routine 07/01/2020 PROPHYLAXIS - ADULT Routine 06/28/2019 1 2:00 AM EDT from Last 3 Months or Most Recently Relevant to Health Maintenance Results * Microalbumin, Random Urine w/Creatinine (06/27/2023 8:43 AM EDT) Micro-Albumin <12.0 (<20) MG/L [facility] Comment: The urine microalbumin test is designed to monitor renal function. When screening for Bence Rose proteinuria, urine electrophoresis is recommended. Malb/Creat Ratio Unable to calculate (0-20) MG/GM [facility] Urine Creat For Micro Albumin 54.4 MG/DL [facility] Comment: Testing performed or reported by [facility], a Service of [facility], [address] [place] [id number] Cornel Locke MD, Sales Support Consultant ARIA# [id number] 06/27/2023 8:43 AM EDT 06/27/2023 8:45 AM EDT Jaime DE JESUS LAB URINE ORDERABLES Final Resul t Performing Organization Address [facility]/ZIP Co de Phone Number [facility] [address] [place] [phone] * (ABNORMAL) Lipid Panel, Standard (06/27/2023 8:34 AM EDT) Cholesterol, Total 114 (<200) MG/DL [facility] Triglyceride (mg/dL) in Serum/Plasma 155(H) (<150) MG/DL [facility] HDL Cholesterol 38(L) (>39) MG/DL [facility] LDL Cholesterol, Calculated 45 (0-130) MG/DL [facility] Non HDL Chol. (LDL+VLDL) 76 (<160) MG/DL [facility] Comment: Testing performed or reported by [facility], a Service of [facility], [address] [place] [id number] Cornel Locke MD, Sales Support Consultant [facility]# [id number] 06/27/2023 8:34 AM EDT 06/27/2023 8:46 AM EDT Jaime DE JESUS LAB BLOOD ORDERABLES Final Resul t Performing Organization Address [facility] de Phone Number [address] [address] * (ABNORMAL) Hemoglobin A1c (06/27/2023 8:33 AM EDT) Hemoglobin A1C 7.6(H) (4.0-5.6) % [facility] Comment: MONITORING: In known diabetic patients, hemoglobin A1c targets should be discussed with health care provider. DIAGNOSTIC USE: ??The [place] Diabetes Association (ADA) and the World Health Organization (WHO) recommend the use of HbA1c to diagnose diabetes using a threshold of 6.5%. Patients who have an HbA1c between 5.7% and 6.4% are considered at increased risk for developing diabetes in the future. CAUTION: Falsely low HbA1c results may be observed in patients with hemolytic anemia, homozygous forms of abnormal hemoglobin (e.g. SS, CC, SC), , recent blood loss or hemoglobin F greater than 7%. Fructosamine may be used as an alternate test in these cases. REFERENCE: ADA: Standards of Medical Care in Diabetes 2020, The Journal of Clinical and Applied Research and Education Volume 43, Supplement 1 Testing performed or reported by [facility], a Service of [facility], [address] [place] [id number] Cornel Locke MD, Sales Support Consultant [facility]# [id number] 06/27/2023 8:33 AM EDT 06/27/2023 8:45 AM EDT Jaime DE JESUS LAB BLOOD ORDERABLES Final Resul t Performing Organization Address City/[facility]/ZIP Co de Phone Number [facility] [address] [place] [phone] * Hepatitis C Antibody (08/10/2021) Pathologist [facility] Hepatitis C Antibody Nonreactive Blood Historical Provider HEALTH MAINTENANCE Final Result * THIN PREP PAP, WITH HPV, GENOTYPE IF HPV+ (07/08/2021 2:40 PM EDT) Pathologist [facility] See Report [facility] 07/08/2021 2:40 PM EDT Historical Provider LAB CYTOLOGY ORDERABLES F inal Result [facility] [address] * Pap Smear (07/08/2021) Pathologist [facility] Pap smear NILM, HPV NEGATIVE Historical Provider HEALTH MAINTENANCE Final Result * Colonoscopy (07/21/2020) Pathologist [facility] Colonoscopy REPEAT IN 5 YEARS Historical Provider HEALTH MAINTENANCE Final Result * Mammography (07/01/2020) Pathologist [facility] Mammogram BIRADS 1 NEGATIVE Anatomical Region Laterality Modality Other us Historical Provider HEALTH MAINTENANCE Final Result from Last 3 Months or Most Recently Relevant to Health Maintenance Insurance [facility] STANDARD MEDICARE [facility] STANDARD [facility] [id number] DENTAL-[facility] MEDICAID STAND ADULT * Guarantor: Jeninfer Mccullough Account Type Relation to Patient Date of Phone B[place] [id number] [place] [phone] Care Teams Biodiesel Process Control Technician Relationship Specialty Start Date End Date Jaime Page PA [address] [place] [phone] PCP - General Family Medicine 03/11/23
--- NOTE | 2025-01-29 07:50 | A.OFFVIS_ITS ---
Intake Visit Reasons: Followup/US(set) Intake Note: Patient presents today for follow up on: Incontinence and ultrasound results Imagin10/11/24 Urology Medications: Gemtesa Allergies to Antibiotic: No Known Allergies Blood Thinner: None Post Void Residual: 0ml's Vessel Engineer Required: No Accompanied by: Self / Same As Patient Allergies No Known Allergies Allergy (Verified 01/29/25 08:06) Medication List - Last Reviewed 01/29/25 by María Andrews acetaminophen ER 650 mg PO Q4H PRN albuterol sulfate 90 mcg/actuation 2 puffs inhalation Q6H PRN alum-mag hydroxide-simeth 400-400-40 mg/5 mL (Mylanta Maximum Strength) 10 mL PO Q6H PRN aripiprazole 10 mg PO DAILY carbidopa-levodopa 25-100 mg 1 tab PO TID dapagliflozin propanediol (Farxiga) 5 mg PO DAILY dulaglutide (Trulicity) mg subcut guaifenesin 200 mg PO Q4H PRN Lactobacillus acidophilus (Probiotic) 10,000 mmu cells PO BID lisinopril 10 mg PO DAILY lorazepam 0.5 mg PO DAILY PRN lorazepam 0.5 mg PO BID memantine 10 mg PO BID metformin ER 1,500 mg PO DAILY simvastatin 20 mg PO BEDTIME HPI Comments Details: Jennifer Machado is a pleasant 69-year-old female patient. She has a past medical history of hyperlipidemia, schizophrenia, atopic dermatitis, anemia, obesity, type 2 diabetes, GERD, hypertension, Alzheimer's, and major neurocognitive disorder. She presents to the office today for follow-up of her renal cyst as well as lower urinary tract symptoms. In discussion with the patient today she reports to be doing and feeling well. She denies having had any bothersome urinary issues or concerns since her last office visit here. She reports compliance with 75 mg of Gemtesa daily as prescribed. Unable to provide urine for urinalysis today however PVR 0 mL. Recent renal imaging results were reviewed 10/09 bilateral kidneys are normal in size, contour, and echogenicity. There are no renal calculi or hydronephrosis noted bilaterally. There is and anechoic cyst in the mid pole of the right kidney measuring 2.5 cm. When asked she denies urinary urgency, urinary frequency, incontinence, nocturia, hematuria, dysuria, foul smelling urine, changes to urinary stream, flank pain, fever, and or chills. She is happy with her current voiding parameters. Discussed affects of diabetes on the bladder/lower urinary tract symptoms and overall health and well-being. She otherwise offers offers no other issues or concerns at this time. Plan The patient's overactive bladder is effectively managed with Vibegron/Gemtesa, and she reports satisfactory urinary control under this regimen, allowing for its continuation. The renal cyst is observed as stable on ultrasound, not necessitating any immediate intervention. A follow-up is planned in six months to evaluate urinary symptoms and ensure medication efficacy unless symptoms worsen, in which case an earlier appointment may be scheduled. Discussion included signs of urinary tract infection, advising the patient to report any symptoms to allow prompt evaluation. Patient was informed and verbally consented to the use of an ambient scribe for clinic note documentation during this visit. Discussion Notes I discussed with the patient her current management for urinary frequency due to overactive bladder, explaining the effectiveness of Vibegron (Gemtesa) and the rationale for its use. We reviewed ultrasound results indicating a stable renal cyst that does not require intervention. We discussed signs indicative of urinary tract infections and when to seek further evaluation. The patient was informed about the stability of the renal cyst and the non-requirement for surgical intervention. We concluded with an agreement on a six-month follow-up to reassess her symptoms and ensure ongoing treatment efficacy.. [facility] Medical History Hyperlipidemia Schizophreniform disorder Atopic dermatitis Anemia Obesity Type 2 diabetes mellitus Gastroesophageal reflux disease without esophagitis Primary hypertension Alzheimer's dementia Major neurocognitive disorder Social History Household Members: Other Housing: Assisted Living Facility Housing Other:: [facility] home Patient Tobacco Use Status: Never used Tobacco service: No Review of Systems Const Reports no additional complaints Eyes Reports no additional complaints ENT Reports no additional complaints Card Reports as per [facility] Resp Reports no additional complaints GI Reports as per [facility] Reports as per [facility] Musc Reports no additional complaints Skin/Breast Reports as per [facility] Neuro Reports as per [facility] Psych Reports as per [facility] Endo Reports as per [facility] Jimi/Lymph Reports no additional complaints Aller/Immun Reports no additional complaints Physical Exam Const General: cooperative, healthy appearing, comfortable, no acute distress, well developed, alert and awake Nutritional Appearance: overweight Orientation/consciousness: patient oriented x3 Limitations: no limitations HEENT Head: Yes normal to inspection, Yes normocephalic and Yes atraumatic Ears: hearing grossly normal bilaterally Eyes General: appearance normal, both eyes and all related structures Neck Neck: Yes normal visual inspection and Yes trachea midline Chest Chest palpation & inspection: normal inspection of the chest Resp Effort & Inspection: normal respiratory effort and able to speak in complete sentences Cardio Rate: regular rate GI Inspection: Yes normal to inspection General: Yes no CVA tenderness Back/Spine/Pelvis Back: no CVA tenderness Skin General skin exam: no rashes or lesions noted Neuro General: patient oriented x3 Extrem General: Yes normal to inspection Psych Appearance: grossly normal and well kempt Mental Status: other (Patient slow to respond at times) Speech and movement: Clear speech present Affect: normal affect Attitude: cooperative Thought process: Normal thought process present Thought content: Normal thought content present Insight: Fair insight present (Psych) Judgement: Fair judgement present (Psych) Office Procedures Post Void Residual Post Residual Void Post Void Residual (PVR): 0 53317-Erpj Void Residual by ultrasound Results Reviewed Results Reviewed: Date of Service: 10/11/24 Procedure(s): US renal BI FINDINGS: RIGHT KIDNEY: 10.5 x 4.7 x 4.9 cm (SAG x AP x TRV). The kidney is normal in size, contour, and echogenicity. Renal cortical thickness is normal. No renal calculi or hydronephrosis. There is anechoic cyst mid pole measuring 2.5 x 1.6 x 2.0 cm. LEFT KIDNEY: 10.7 x 5.8 x 4.7 cm (SAG x AP x TRV). The kidney is normal in size, contour, and echogenicity. Renal cortical thickness is normal. No calculi or focal parenchymal lesions. No hydronephrosis. There is a prominent dromedary hump IMPRESSION: Anechoic simple cyst mid pole right kidney. It is stable compared to previous exam 09/01/2024. Assessment & Plan Assessment & Plan (1) Renal cyst: Code(s): N28.1 - Cyst of kidney, acquired Category: Medical (2) Lower urinary tract symptoms: Code(s): R39.9 - Unspecified symptoms and signs involving the genitourinary system Category: Medical Plan Unable to obtain urine for urinalysis as patient unable to void however PVR 0 mL. Recent renal imaging results reviewed with the patient today; as noted above. Patient currently denies any bothersome urinary issues or concerns. She reports be happy with current voiding parameters on 75 mg of Gemtesa; will continue. Will continue with surveillance monitoring. Follow-up in 6 months with PVR; or sooner with any issues, concerns, and or questions. Patient Instructions: The patient had an opportunity to ask questions regarding the treatment plan. All questions were answered. Physical exam, labs, and imaging were discussed and reviewed in detail. As well as risks, benefits, and discussion of treatment choices. No major barriers to understanding were identified. The patient expressed understanding and agreement with the above treatment plan. The patient was made aware they should contact our office by phone for worsening of their current condition, the appearance of new symptoms, or with any questions or concerns. Compliance is encouraged with any medications and follow up testing that is ordered. It is a privilege to be allowed the opportunity to participate in? your urological care.? Again, if you have any questions or concerns If you have any questions or concerns please do not hesitate to contact me. The office is [phone]. This note is constructed using voice recognition software. While every effort has been made to ensure accuracy chemical process project engineer errors may have been included. Yours sincerely, NYDIA Jones Coding Level of Care Code Est Pt Level 3 (92012) Complex EM visit Add On G2211 Diagnoses Renal cyst N28.1 Lower urinary tract symptoms R39.9 CPT Codes Post Residual Void - PVR CPT Code: 34440-Qeim Void Residual by ultrasound ([id number])
== END 2025-01-29 08:18 | disposition home or self-care (01) ==
LOC: HO.HUSH 07:34
PROVIDERS: Visit Provider Nurse Practitioner Family
DX: N28.1 Cyst of kidney, acquired (principal); R39.9 Unspecified symptoms and signs involving the genitourinary system
CPT/HCPCS: 99213; G2211

== ENCOUNTER → 2025-01-29 07:34 | Outpatient (BNVA) | payer MEDICARE, MEDICAID, SELFPAY | PROVIDERS: Visit Provider Nurse Practitioner Family | DX: R32 Unspecified urinary incontinence (principal); N28.1 Cyst of kidney, acquired | CPT/HCPCS: 51798; 99212 ==

== ENCOUNTER 2025-08-12 09:54 | Outpatient (AMB) | payer MEDICARE, MEDICAID, SELFPAY ==
--- OUTSIDE RECORDS SUMMARY | 2025-08-06 10:15 | XMS_ITS | Encounter Summary ---
Author Organization [employer] Address [address] [address] [place] [address] Care Team Providers Care Midlevel Provider Name Role Phone Jaime Page Primary Care Provider [phone] Reason for Visit * Reason Comments Potrero Encounter Details Date Type Department Care Team (Late st Contact Info) Description 08/06/2025 10:15 AM EDT Office Visit [facility] [address] [place] [address] Sherly Garza DDS [address] [place] [address] Social History Tobacco Use Types Packs/Day Years [...] PM EST documented as of this encounter Last Filed Vital Signs Vital Sign Reading Time Taken Comments Blood Pressure 100/70 08/06/2025 10:29 AM EDT Pulse 63 08/06/2025 10:29 AM EDT Temperature - - Respiratory Rate - - Oxygen Saturation - - Inhaled Oxygen Concentration - - Weight - - Height - - Body Mass Index - - documented in this encounter Progress Notes * Sherly Garza DDS - 08/06/2025 10:15 AM EDT Dental procedures in this visit D2700.1 - CROWN PREP 7 (Completed) Service provider: Sherly Garza DDS Billing provider: Artur Barboza DMD [id number] - CASE PRESENTATION, DETAILED AND EXTENSIVE TREATMENT PLANNING (Completed) Service provider: Sherly Garza DDS Billing provider: Artur Barboza DMD Patient ID: Jennifer Mccullough is a 69 y.o. female. Time Out: Date: 08/06/2025 Location: [facility] Tooth: #7 Procedure: Potrero Verified the above with patient, quality assurance assistant, and provider. Confirmed via patient's chart, intraorally and by radiographs. Duck Operator: not applicable BruxZir / PFM crown preparation on # [address] Sherly Garza DDS Risk, benefits, and alternatives discussed with the patient. CONSENT FORM INITIALED & SIGNED BY THE PATIENT AND COUNTERSIGNED BY Dr. Sherly Garza DDS Medical history: Reviewed in EHR Vitals: Blood pressure 100/70, pulse 63. Allergies: Reviewed in EHR Medications: Reviewed in EHR - Local infiltration with 1 carpule 2% lidocaine 1:100,000 epinephrine - Pre-op PVS impression recorded for fabrication of provisional crown - Potrero prep completed on # 7 - Size 00 retraction cord with hemodent placed in gingival sulcus - Impression of crown prep recorded with light and heavy body PVS / 3M Scanner - Retraction cord removed - Integrity placed in PVS impression and placed in mouth for fabrication of provisional - Impression and provisional removed from mouth - Provisional margins adjusted and checked on # 7 - Occlusion checked and adjusted as needed using articulating paper - Potrero locked in with friction force. No temp Magana necessary. - Margin adaptation confirmed by clinical examination. - Shade A4 Monica Classic selected Patient given post-op instructions Patient satisfied, left in stable condition NV: Seating of # 7 Potrero Provider: Dr. Sherly Garza DDS Med Spa Manager: Lizzie Supervising Dentist: Dr. Barboza * Artur Barboza DMD - 08/06/2025 10:15 AM EDT I have reviewed the documentation and dental procedures made by the rendering provider, Sherly Garza DDS, and approve their chart entries for this visit. Artur Barboza DMD documented in this encounter Plan of Treatment Upcoming Encounters Date Type Department Care Team (Late st Contact Info) Description 08/16/2025 9:30 AM EDT Office Visit [facility] [address] [place] [address] Gisselle Pastor [address] [place] [address] 08/23/2025 10:30 AM EST Office Visit [facility] [address] [place] [address] Sherly Garza DDS [address] [place] [address] Scheduled Orders Name Type Priority Associated Diagnoses Orde r Schedule PROPHYLAXIS - ADULT Dental Routine 1 Occ urrences starting 08/06/2025 CASE PRESENTATION, DETAILED AND EXTENSIVE TREATMENT PLANNING Dental Routine 1 Occurrences starting 08/06/2025 COMPREHENSIVE PERIODONTAL EVALUATION - NEW OR ESTABLISHED PATIENT Dental Routine 1 Occurrence s starting 08/06/2025 CASE PRESENTATION, DETAILED AND EXTENSIVE TREATMENT PLANNING Dental Routine 1 Occurrences starting 08/06/2025 DENTAL LAB FIXED Dental Routine Ordered: 08/06/2025 documented as of this encounter Procedures Procedure Name Priority Date/Time Associated Diagnosis Comments 7 CROWN PREP Routine 08/06/2025 10:15 AM EDT CASE PRESENTATION, DETAILED AND EXTENSIVE TREATMENT PLANNING Routine 08/06/2025 10:15 AM EDT documented in this encounter Visit Diagnoses Not on filedocumented in this encounter Care Teams Midlevel Provider Relationship Specialty Start Date End Date Jaime Page PA [address] [place] [id number] PCP - General Family Medicine 03/11/23 documented as of this encounter
--- NOTE | 2025-08-12 10:13 | MHC.OFFVIS ---
Intake Visit Reasons: 6 month f/u Accompanied by: staff member Allergies No Known Allergies Allergy (Verified 08/12/25 10:19) Medication List - Last Reconciled 08/12/25 by Franny Hairston CNP acetaminophen ER 650 mg PO Q4H PRN albuterol sulfate 90 mcg/actuation 2 puffs inhalation Q6H PRN alum-mag hydroxide-simeth 400-400-40 mg/5 mL (Mylanta Maximum Strength) 10 mL PO Q6H PRN aripiprazole 10 mg PO DAILY carbidopa-levodopa 25-100 mg 1 tab PO TID dulaglutide (Trulicity) mg subcut guaifenesin 200 mg PO Q4H PRN Lactobacillus acidophilus (Probiotic) 10,000 mmu cells PO BID lisinopril 10 mg PO DAILY lorazepam 0.5 mg PO DAILY PRN lorazepam 0.5 mg PO BID memantine 10 mg PO BID metformin ER 1,500 mg PO DAILY simvastatin 20 mg PO BEDTIME HPI Comments Details: 69-year-old woman with diagnosis of a psychotic disorder made in her 30s, presently living in a facility, was here for dementia/parkinsonism. She was doing okay. Sometimes she had some shaking in her hands or legs off and on. No functional impairment.?No difficulty eating, drinking, or swallowing.?She was walking without assistance, no falls. Appetite was okay.?Sleep was okay. Mood was stable overall. [facility] Medical History Hyperlipidemia Schizophreniform disorder Atopic dermatitis Anemia Obesity Type 2 diabetes mellitus Gastroesophageal reflux disease without esophagitis Primary hypertension Alzheimer's dementia Major neurocognitive disorder Social History Household Members: Other Housing: Assisted Living Facility Housing Other:: [facility] Patient Tobacco Use Status: Never used Tobacco service: No Review of Systems Const Denies chills, Denies daytime sleepiness, Denies difficulty sleeping, Denies fatigue, Denies fever(s), Denies frequent falls, Denies headache(s), Denies increased appetite, Denies poor appetite, Denies snoring, Denies weakness, Denies weight gain and Denies weight loss Eyes Denies loss of vision ENT Denies vertigo, Denies dizziness and Denies headache(s) Card Denies chest pain at rest, Denies chest pain with activity, Denies syncope, Denies leg edema and Denies palpitations Resp Denies snoring GI Denies constipation, Denies heartburn, Denies diarrhea and Denies nausea Denies urinary frequency, Denies urinary incontinence and Denies urinary urgency Musc Denies abnormal gait, Denies numbness and Denies tingling Skin/Breast Denies dry skin and Denies rash Neuro Denies abnormal gait, Denies vertigo, Denies dizziness, Denies syncope, Denies frequent falls, Denies headache(s), Denies lack of coordination, Denies loss of vision, Denies memory loss, Denies numbness, Denies restless legs, Denies seizure-like activity, Denies tingling, Denies paresthesias, Reports tremor(s) and Denies weakness Psych Denies anxiety, Denies depression, Denies auditory hallucinations, Denies memory loss, Denies visual hallucinations and Denies suicidal ideation Endo Denies fatigue and Denies palpitations Physical Exam Const Other: General Appearance:? normal, in no acute distress. Skin:? no rashes, no significant birthmarks. Heart:? S1, S2 normal, no murmurs. Lungs:? clear anteriorly and posteriorly. Extremities:? no edema. Psych:? alert, oriented, cognitive function intact, cooperative with exam. Neuro Other: Mental Status:?Alert and awake with normal sp speech, fluency, comprehension, and flat affect. Cranial Nerves:?Pupils are equal, round and reactive to light. External occular muscles are intact. Visual more are full. Face is symmetrical. Facial sensations are normal. Tongue is midline. Palate elevates symmetrically. Shoulder shrugging is normal. Hearing to bedside conversation is normal. Sensory Exam:?....? Coordination:?No ataxia,?no titubation.? Gait Exam: Decreased arm swing, short-stepped gait. Cerebellar Signs:?[id number] is okay. Extrapyramidal System:?Decreased facial expression and blinking. Mild hand tremor, mild leg tremor, decreased arm swing.? Pronator Drift:?Not present.? Involuntary Movements:?Resting tremors of the hands seen. ? Speech:?Normal.? Assessment & Plan Assessment & Plan (1) Parkinsonism: Code(s): G20 - Parkinson's disease Category: Medical Qualifiers: Parkinsonism type: unspecified Qualified Code(s): G20 - Parkinson's disease Plan: Continue carbidopa-levodopa 25-100mg 1 tablet three times a day. (2) Dementia: Code(s): F03.90 - Unspecified dementia, unspecified severity, without behavioral disturbance, psychotic disturbance, mood disturbance, and anxiety Category: Medical Qualifiers: Dementia type: unspecified type Dementia severity: unspecified severity Dementia behavioral or psychological symptom: unspecified whether behavioral, psychotic, or mood disturbance or anxiety Qualified Code(s): F03.90 - Unspecified dementia, unspecified severity, without behavioral disturbance, psychotic disturbance, mood disturbance, and anxiety Plan: Continue memantine 10mg 1 tablet twice a day. (3) Psychotic disorder: Code(s): F29 - Unspecified psychosis not due to a substance or known physiological condition Category: Medical Qualifiers: Psychosis type: unspecified psychosis type Qualified Code(s): F29 - Unspecified psychosis not due to a substance or known physiological condition Plan . Coding Level of Care Code [facility] Level 4 (65110) Diagnoses Parkinsonism, unspecified Parkinsonism type G20 Parkinsonism type: unspecified Dementia, unspecified dementia severity, unspecified dementia type, unspecified whether behavioral, psychotic, or mood disturbance or anxiety F03.90 Dementia type: unspecified type Dementia severity: unspecified severity Dementia behavioral or psychological symptom: unspecified whether behavioral, psychotic, or mood disturbance or anxiety Psychosis, unspecified psychosis type F29 Psychosis type: unspecified psychosis type
--- OUTSIDE RECORDS SUMMARY | 2025-08-12 11:30 | XMS_ITS | Encounter Summary ---
Author Organization [employer] Address [address] [facility] [address] [place] [address] Care Team Providers Care Warrant Server Name Role Phone Abrahan Cabezas DDS Primary Care Provider [phone] Jaime Page Unavailable Jaime Page Unavailable Jaime Page Primary Care Provider Encounter Details Date Type Department Care Team [...] as of this encounter Plan of Treatment Upcoming Encounters Date Type Department Care Team (Late st Contact Info) Description 08/16/2025 9:30 AM EDT Office Visit [facility] [address] [place] [address] Gisselle Pastor [address] [place], [place] [phone] 08/23/2025 10:30 AM EST Office Visit [facility] [address] [place] [address] Sherly Garza DDS [address] [place], [place] [phone] documented as of this encounter Visit Diagnoses Not on filedocumented in this encounter Care Teams Warrant Server Relationship Specialty Start Date End Date Abrahan Cabezas DDS [address] [place] [address] PCP - General Dentist 08/13/22 03/10/23 Jaime Page PA [address] [place] [address] PCP - General Family Medicine 03/11/23 Jaime Page PA [address] [place] [address] Family Medicine 08/13/22 03/10/23 Jaime Page PA [address] [place] [address] Family Medicine 08/13/22 03/10/23 documented as of this encounter
--- OUTSIDE RECORDS SUMMARY | 2025-08-12 11:30 | XMS_ITS | Encounter Summary ---
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 Social History Tobacco Use Types Packs/Day Years [...] Procedure Name Priority Date/Time Associated Diagnosis Comments LIPID PANEL WITH REFLEX TO DIRECT LDL Routine 12/04/2024 6:04 AM EST Hyperlipidemia, unspecified Essential (primary) hypertension Type 2 diabetes mellitus without complications (CMS/HCC) 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 COMPLETE BLOOD COUNT Routine 12/04/2024 6:04 AM EST Hyperlipidemia, unspecified Essential (primary) hypertension Type 2 diabetes mellitus without complications (CMS/HCC) 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 THYROID STIMULATING HORMONE Routine 12/04/2024 6:04 AM EST Hyperlipidemia, unspecified Essential (primary) hypertension Type 2 diabetes mellitus without complications (CMS/HCC) 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 HEMOGLOBIN A1C Routine 12/04/2024 6:04 AM EST Hyperlipidemia, unspecified Essential (primary) hypertension Type 2 diabetes mellitus without complications (CMS/HCC) 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 VITAMIN B12 Routine 12/04/2024 6:04 AM EST Hyperlipidemia, unspecified Essential (primary) hypertension Type 2 diabetes mellitus without complications (CMS/HCC) 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 COMPREHENSIVE METABOLIC PANEL Routine 12/04/2024 6:04 AM EST Hyperlipidemia, unspecified Essential (primary) hypertension Type 2 diabetes mellitus without complications (CMS/HCC) Other skilled nursing (current) drug therapy documented in this encounter Results * Vitamin B12 (12/04/2024 6:04 AM EST) Vitamin B-12 518 250 - 900 pcg/mL LAB CHEMISTRY METHOD 12/04/2024 12:42 PM EST [facility] Blood Venous blood specimen / Unknown Venipuncture / Unknown 12/04/2024 6:04 AM EST 12/04/2024 10:12 AM EST Subhash Garcia MD LAB BLOOD ORDERABLES Final Result [facility] [address] [place] [address], * (ABNORMAL) Hemoglobin A1c (12/04/2024 6:04 AM EST) Hemoglobin A1C 8.3(H) <6.5 % LAB CHEMISTRY METHOD 12/04/2024 2:13 PM EST [facility] Mean Bld Glu Estim. 192 mg/dL LAB CHEMISTRY METHOD 12/04/2024 2:13 PM EST [facility] Blood Venous blood specimen / Unknown Venipuncture / Unknown 12/04/2024 6:04 AM EST 12/04/2024 10:12 AM EST us Subhash Garcia MD LAB BLOOD ORDERABLES Final Result [facility] [address] [place] [address], [place] [phone] * Thyroid stimulating hormone (12/04/2024 6:04 AM EST) Pathologist [facility] TSH 2.31 0.40 - 4.00 mcIU/mL LAB CHEMISTRY METHOD 12/04/2024 12:07 PM [facility] Blood Venous blood specimen / Unknown Venipuncture / Unknown 12/04/2024 6:04 AM EST 12/04/2024 10:12 AM EST us Subhash Garcia MD LAB BLOOD ORDERABLES Final Result Performing Organization Address City/[facility]/ZIP Co de Phone Number [facility] [address] [place] [address], [place] [phone] * (ABNORMAL) Lipid panel with reflex to direct LDL (12/04/2024 6:04 AM EST) [facility] Cholesterol 98 0 - 200 mg/dL LAB CHEMISTRY METHOD 12/04/2024 12:42 PM [facility] Triglycerides 172(H) 0 - 150 mg/dL LAB CHEMISTRY METHOD 12/04/2024 12:42 PM [facility] HDL 34(L) >=40 mg/dL LAB CHEMISTRY METHOD 12/04/2024 12:42 PM [facility] LDL Calculated 30 0 - 100 mg/dL LAB CHEMISTRY METHOD 12/04/2024 12:42 PM [facility] VLDL Cholesterol Allen 34.4 mg/dL LAB CHEMISTRY METHOD 12/04/2024 12:42 PM [facility] Non HDL Chol. (LDL+VLDL) 64 <145 mg/dL LAB CHEMISTRY METHOD 12/04/2024 12:42 PM [facility] Chol/HDL Ratio 2.9 0.0 - 4.4 LAB CHEMISTRY METHOD 12/04/2024 12:42 PM [facility] Blood Venous blood specimen / Unknown Venipuncture / Unknown 12/04/2024 6:04 AM EST 12/04/2024 10:12 AM EST Subhash Garcia MD LAB BLOOD ORDERABLES Final Result [facility] [address] [place] [address], [place] [phone] * (ABNORMAL) Comprehensive metabolic panel (12/04/2024 6:04 AM EST) Sodium 139 133 - 145 mmol/L LAB CHEMISTRY METHOD 12/04/2024 12:42 PM [facility] Potassium 5.0 3.5 - 5.5 mmol/L LAB CHEMISTRY METHOD 12/04/2024 12:42 PM [facility] Chloride 105 96 - 110 mmol/L LAB CHEMISTRY METHOD 12/04/2024 12:42 PM [facility] CO2 27 21 - 32 mmol/L LAB CHEMISTRY METHOD 12/04/2024 12:42 PM [facility] Anion Gap 7 3 - 11 LAB CHEMISTRY METHOD 12/04/2024 12:42 PM [facility] Glucose 161(H) 70 - 100 mg/dL LAB CHEMISTRY METHOD 12/04/2024 12:42 PM [facility] BUN 12 5 - 25 mg/dL LAB CHEMISTRY METHOD 12/04/2024 12:42 PM [facility] Creatinine 0.63 0.50 - 1.10 mg/dL LAB CHEMISTRY METHOD 12/04/2024 12:42 PM [facility] eGFR 98 >=60 mL/min/1. 73m2 LAB CHEMISTRY METHOD 12/04/2024 12:42 PM [facility] Comment:Calculation based on the Chronic Kidney Disease Epidemiology Collaboration (CKD-EPI) equation refit without adjustment for race. BUN/Creatinine Ratio 19.0 LAB CHEMISTRY METHOD 12/04/2024 12:42 PM [facility] Calcium 9.1 8.5 - 10.5 mg/dL LAB CHEMISTRY METHOD 12/04/2024 12:42 PM [facility] AST (SGOT) 17 10 - 42 unit/L LAB CHEMISTRY METHOD 12/04/2024 12:42 PM [facility] ALT (SGPT) 29 10 - 60 unit/L LAB CHEMISTRY METHOD 12/04/2024 12:42 PM [facility] Alkaline Phosphatase 95 42 - 121 unit/L LAB CHEMISTRY METHOD 12/04/2024 12:42 PM [facility] Total Protein 6.4 6.0 - 8.0 g/dL LAB CHEMISTRY METHOD 12/04/2024 12:42 PM [facility] Albumin 3.7 3.2 - 5.0 g/dL LAB CHEMISTRY METHOD 12/04/2024 12:42 PM [facility] Total Bilirubin 0.5 0.0 - 1.4 mg/dL LAB CHEMISTRY METHOD 12/04/2024 12:42 PM [facility] Blood Venous blood specimen / Unknown Venipuncture / Unknown 12/04/2024 6:04 AM EST 12/04/2024 10:12 AM EST us Subhash Garcia MD LAB BLOOD ORDERABLES Final Result [facility] [address] [place] [address], * (ABNORMAL) Complete blood count (12/04/2024 6:04 AM EST) WBC 6.8 4.8 - 10.8 K/mcL LAB HEMETOLOGY METHOD 12/04/2024 11:42 AM [facility] RBC 4.10 3.80 - 4.80 M/mcL LAB HEMETOLOGY METHOD 12/04/2024 11:42 AM [facility] Hemoglobin 12.1 11.5 - 16.0 g/dL LAB HEMETOLOGY METHOD 12/04/2024 11:42 AM [facility] Hematocrit 38.2 35.0 - 47.0 % LAB HEMETOLOGY METHOD 12/04/2024 11:42 AM [facility] MCV 92.7 79.0 - 98.0 FL LAB HEMETOLOGY METHOD 12/04/2024 11:42 AM [facility] MCH 29.4 27.0 - 32.0 pcg LAB HEMETOLOGY METHOD 12/04/2024 11:42 AM [facility] MCHC 31.7(L) 32.0 - 37.0 g/dL LAB HEMETOLOGY METHOD 12/04/2024 11:42 AM [facility] RDW 12.8 11.0 - 15.0 % LAB HEMETOLOGY METHOD 12/04/2024 11:42 AM [facility] Platelets 314 130 - 400 K/mcL LAB HEMETOLOGY METHOD 12/04/2024 11:42 AM [facility] MPV 9.7 7.0 - 11.0 FL LAB HEMETOLOGY METHOD 12/04/2024 11:42 AM [facility] NRBC 0.0 <1.0 % LAB HEMETOLOGY METHOD 12/04/2024 11:42 AM [facility] NRBC Absolute 0.00 <0.10 K/mcL LAB HEMETOLOGY METHOD 12/04/2024 11:42 AM [facility] Blood Venous blood specimen / Unknown Venipuncture / Unknown 12/04/2024 6:04 AM EST 12/04/2024 10:12 AM EST Subhash Garcia MD LAB BLOOD ORDERABLES Final Result [facility] [address] [place] [address], documented in this encounter Visit Diagnoses Diagnosis Hyperlipidemia, unspecified Essential (primary) hypertension Unspecified essential hypertension Type 2 diabetes mellitus without complications (CMS/HCC V24, CMS/HCC V28) Other skilled nursing (current) drug therapy documented in this encounter Care Teams Organ Pipe Voicer Relationship Specialty Start Date End Date Subhash Garcia MD [address] [place] [address] PCP - General Internal Medicine 09/17/24 documented as of this encounter
--- OUTSIDE RECORDS SUMMARY | 2025-08-12 11:30 | XMS_ITS | Clinical Summary ---
Author Organization [employer] Address [address] [facility] 7[address] [place] [address] Care Team Providers Care Stock Fitter Name Role Phone Jaime Page Primary Care Provider [phone] Allergies No known active allergies Medications Blood [...] (Abilify) 10 MG tabletIndications: Schizophreniform disorder (CMS/HCC) ([facility]) Take 1 tablet (10 mg) by mouth in the morning. 90 tablet 06/27/20 23 Active lisinopril 10 MG tabletIndications: Primary hypertension Take 1 tablet (10 mg) by mouth in the morning. 90 tablet 06/27/20 23 Active metFORMIN XR (Glucophage-XR) 500 MG 24 hr tabletIndications: Type 2 diabetes mellitus with hyperglycemia, without long-term current use of insulin ([facility]) Take 3 tablets (1,500 mg) by mouth with evening meal. Do not crush, chew, or split. 270 tablet 06/27/20 23 Active rivastigmine (Exelon) 9.5 MG/24HRIndications :Major neurocognitive disorder (CMS/HCC) ([facility]) Place 1 patch on the skin in the morning. 90 patch 06/27/20 Active simvastatin (Zocor) 20 MG tabletIndications: Type 2 diabetes mellitus with hyperglycemia, without long-term current use of insulin ([facility]) Take 1 tablet (20 mg) by mouth at bedtime. 90 tablet 06/27/20 Active LORazepam (Ativan) 0.5 MG tabletIndications: Schizophreniform disorder (CMS/[facility]) (HCC) Take 1 tablet (0.5 mg) by mouth 2 times daily for 28 days. 56 tablet 07/22/20 Active memantine (Namenda) 10 MG tablet Take [...] hyperglycemia, without long-term current use of insulin ([facility]) Inject 1.5 mg under the skin 1 (one) time per week. 8 each 02/09/20 Active saccharomyces boulardii (Florastor) 250 MG capsule Take 1 capsule (250 mg) by mouth 2 times daily. 90 capsule 05/24/20 Active Active Problems Problem Noted Date Diagnosed Date Overactive bladder 02/22/2024 Primary hypertension 06/27/2023 Assessment & Plan (06/27/2023 8:43 AM EDT): BP nearly at goal <130/80 on current med regimen, tolerating well with no side effects. Asymptomatic and clinically well-appearing. Continue current meds and will continue to monitor. Major neurocognitive disorder ([facility]) 01/22/20 Assessment & Plan (06/27/2023 8:41 AM EDT): Seemingly stable on presentation today. Bridge scripts provided. Schedule w/ neurology. Alzheimer's type dementia ([facility]) 01/21/2023 Assessment & Plan (01/21/2023 2:33 PM EDT): Patient currently appearing clinically well and stable status post 3-month hospitalization. Continue current med regimen, and referral placed for specialist care. Reviewed hospital discharge documentation and reconciled med list. Pt and aide from [facility] are unsure if they are going to continue with PCP at [facility] (if so then will schedule transfer visit with either myself or another provider), or establish with a practice more local to [facility]. 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) 12/06/2013 Assessment & Plan (06/27/2023 8:40 AM [...] today and patient will have done at [facility] adjacent to residential [facility] home where she currently lives. We will look out for results and dose adjust meds as needed. Encounters Date Type Department Care Team Description 08/06/2025 10:15 AM EDT Office Visit [facility] [address] [place] [address] Sherly Garza DDS 07/18/2025 Telephone [facility] [address] [place] [address] Sherly Garza DDS case back from lab? 07/08/[address] [phone] Jaime Page PA Colon Cancer Screening 07/02/2025 8:30 AM EDT Office Visit [facility] [address] [place] [address] Sherly Garza DDS 06/28/[address] [phone] Jaime Page PA Colon Cancer Screening 05/24/[address] [phone] Jaime Page PA 05/20/2025 8:00 AM EDT Office Visit [facility] [address] [place] [address] Sherly Garza DDS from Last 3 Months Immunizations Immunization Administration Dates Next Due Hep A / [...] Pulse 63 08/06/2025 10:29 AM EDT Temperature 36.1 C (96.9 F) 06/27/2023 7:44 AM EDT Respiratory Rate - - Oxygen Saturation 95% 06/27/2023 7:44 AM EDT Inhaled Oxygen Concentration - - Weight 80.3 kg (177 lb) 06/27/2023 7:44 AM EDT Height 153.7 cm (5' 0.5 ) 04/07/2022 3:18 PM EDT Body Mass Index 34 04/07/2022 3:18 PM EDT Plan of Treatment Upcoming Encounters Date Type Department Care Team (Late st Contact Info) Description 08/16/2025 9:30 AM EDT Office Visit [facility] [address] [place] [address] Gisselle Pastor [address] [place] [address] 08/23/2025 10:30 AM EST Office Visit [facility] [address] [place] [address] Sherly Garza DDS [address] [place] [address] Health Maintenance Due Date Last Done Comments [...] 11/11/19 22, 06/28/2019, 11/09/2018, Additional history exists Depression Screening 06/27/2024 06/27/2023, 06/27/20 23 Diabetes: Urine Protein Screening 06/27/2024 06/27/2023, 01/04/2022, 12/10/2021, Additional history exists Lipid Panel 06/27/2024 06/27/2023, 07/18, 03/13/2021, Additional history exists SDOH Screening 06/27/2024 06/27/2023 Dental X-Ray: Full Mouth 11/12/2024 022, 09/14/2017, 06/27/2012 COVID-19 Vaccine ( season) 2025 07/25/2024, 08/15/2023, 01/21/2023, Additional history exists Influenza Vaccine (#1) 2025 , 07/13/2023, 06/12/2022, Additional history exists Colonoscopy 07/21/2025 07/21/2020, 02/2020, 10/07/2014 Colorectal Cancer Screening 07/21/2025 Diabetes: Hemoglobin A1C 09/11/2025 025, 03/05/2025, 12/04/2024, Additional history exists Pneumococcal Vaccine: 50+ Years (3 of 3 - PCV20 or PCV21) 04/15/2026 04/15/2021, 04/05/2019, 05/18/2014, Additional history exists HPV/Cotest 07/08/2026 07/08/2021 Pap Smear 07/08/2026 07/08/2021, 07/08/2021 Tobacco Screening 08/06/2026 08/06/2025 DTaP/Tdap/Td Vaccines (3 - Td or Tdap) [...] history exists Hepatitis C Screening Completed 08/10/2021 HIB Vaccines Aged Out No longer eligi [...] Procedure Name Priority Date/Time Associated Diagnosis Comments CASE PRESENTATION, DETAILED AND EXTENSIVE TREATMENT PLANNING Routine 08/06/2025 10:15 AM EDT 7 CROWN PREP Routine 08/06/2025 10:15 AM EDT 7 CORE BUILDUP, INCL ANY PINS WHEN REQ Routine 07/02/2025 8:30 AM EDT CASE PRESENTATION, DETAILED AND EXTENSIVE TREATMENT PLANNING Routine 07/02/2025 8:30 AM EDT 7 ENDODONTIC THERAPY, ANTERIOR TOOTH Routine 05/20/2025 8:00 AM EDT 7 INTRAORAL - PERIAPICAL EACH ADDITIONAL RADIOGRAPHIC IMAGE Routine 05/20/2025 8:00 AM EDT 7 INTRAORAL - PERIAPICAL EACH ADDITIONAL RADIOGRAPHIC IMAGE Routine 05/20/2025 8:00 AM EDT 7 INTRAORAL - PERIAPICAL FIRST RADIOGRAPHIC IMAGE Routine 05/20/2025 8:00 AM EDT CASE PRESENTATION, DETAILED AND EXTENSIVE TREATMENT PLANNING Routine 05/20/2025 8:00 AM EDT MICROALBUMIN, RANDOM (W CREAT) Routine 06/27/2023 8:43 [...] 8:43 AM EDT) Micro-Albumin <12.0 (<20) MG/L [facility] Comment: The urine microalbumin test is designed to monitor renal function. When screening for Bence Rose proteinuria, urine electrophoresis is recommended. Malb/Creat Ratio Unable to calculate (0-20) MG/GM [facility] Urine Creat For Micro Albumin 54.4 MG/DL [facility] Comment: Testing performed or reported by [facility], a Service of [facility], [address] [place] [address] Cornel Locke MD, Cuff Maker [facility]# [id number] 06/27/2023 8:43 AM EDT 06/27/2023 8:45 AM EDT us Jaime DE JESUS LAB URINE ORDERABLES Final Resul t [place] [address] * (ABNORMAL) Lipid Panel, Standard (06/27/2023 8:34 AM EDT) Cholesterol, Total 114 (<200) MG/DL [facility] Triglyceride (mg/dL) in Serum/Plasma 155(H) (<150) MG/DL [facility] HDL Cholesterol 38(L) (>39) MG/DL [facility] LDL Cholesterol, Calculated 45 (0-130) MG/DL [facility] Non HDL Chol. (LDL+VLDL) 76 (<160) MG/DL [facility] Comment: Testing performed or reported by [facility], a Service of [facility], [address] [place] [address] Cornel Locke MD, Cuff Maker [facility]# [id number] 06/27/2023 8:34 AM EDT 06/27/2023 8:46 AM EDT Jaime DE JESUS LAB BLOOD ORDERABLES Final Resul t [facility] [address] [place] [address] * (ABNORMAL) Hemoglobin A1c (06/27/2023 8:33 AM EDT) Hemoglobin A1C 7.6(H) (4.0-5.6) % [facility] Comment: MONITORING: In known diabetic patients, hemoglobin A1c targets should be discussed with health care provider. DIAGNOSTIC USE: The [place] Diabetes [employer] (ADA) and the World Health [...] Supplement 1 Testing performed or reported by [facility], a Service of [facility], [address] [place] [address] Cornel Locke MD, Cuff Maker [employer]# [id number] 06/27/2023 8:33 AM EDT 06/27/2023 8:45 AM EDT Jaime Luthi PA LAB BLOOD ORDERABLES Final Resul t [facility] [address] [place], [place] [id number] * Hepatitis C Antibody (08/10/2021) [facility] Hepatitis C Antibody Nonreactive Blood Historical Provider HEALTH MAINTENANCE Final Result * THIN PREP PAP, WITH HPV, GENOTYPE IF HPV+ (07/08/2021 2:40 PM EDT) [facility] See Report [facility] 07/08/2021 2:40 PM EDT Result [facility] Provider LAB CYTOLOGY ORDERABLES F inal Result [facility] [address] * Pap Smear (07/08/2021) Pathologist [facility] Pap smear NILM, HPV NEGATIVE Historical Provider HEALTH MAINTENANCE Final Result * Colonoscopy (07/21/2020) [facility] Colonoscopy REPEAT IN 5 YEARS Historical Provider HEALTH MAINTENANCE Final Result * Mammography (07/01/2020) [facility] Mammogram BIRADS 1 NEGATIVE Anatomical Region Laterality Modality Other Historical Provider HEALTH MAINTENANCE Final Result from Last 3 Months or Most Recently Relevant to Health Maintenance Insurance [facility] STANDARD MEDICARE [facility] STANDARD N FULL DENTAL-[facility] MEDICAID STAND ADULT * Guarantor: Jennifer Mccullough Account Type Relation to Patient Date of Phone B[place] [address] [place] [address] [place] [address] Care Teams Stock Fitter Relationship Specialty Start Date End Date Jaime Page PA [address] [place] [phone] PCP - General Family Medicine 03/11/23
--- OUTSIDE RECORDS SUMMARY | 2025-08-12 11:31 | XMS_ITS | Encounter Summary ---
Author Organization [employer] Address [address] [facility] 7[address] [place] [address] Care Team Providers Care Negotiator Sales Name Role Phone Jaime Page Primary Care Provider [phone] Reason for Visit * Reason Onset Date Comments case back from lab? 07/18/2025 Encounter Details Date Type Department Care Team (Late st Contact Info) Description 07/18/2025 Telephone [facility] [address] [place] [address] Sherly Garza DDS [address] [place] [address] case back from lab? 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 I have mimiedith keita 08/16/[address] you [...] the past 12 months, has t he [employer], gas, oil or water [employer] threatened to shut off services in your [...] * Telephone Encounter - Jacki Harman - 07/18/2025 9:34 AM EDT [facility] staff called to confirm if crown case was back from lab as patient/resident is asking. Please confirm and reach out to patient for scheduling when case is in DR documented in this encounter Plan of Treatment Upcoming Encounters Date Type Department Care Team (Late st Contact Info) Description 08/16/2025 9:30 AM EDT Office Visit [facility] [address] [place] [address] Gisselle Pastor [address] [place] [address] 08/23/2025 10:30 AM EST Office Visit [facility] [address] [place] [address] Sherly Garza DDS [address] [place] [address] documented as of this encounter Visit Diagnoses Not on filedocumented in this encounter Care Teams Negotiator Sales Relationship Specialty Start Date End Date Jaime Page PA [address] [place] [phone] PCP - General Family Medicine 03/11/23 documented as of this encounter
--- OUTSIDE RECORDS SUMMARY | 2025-08-12 11:31 | XMS_ITS | Encounter Summary ---
Author Organization [employer] Address [address] [facility] 7t [place] [address] Care Team Providers Care Interventional Radiology Technologist Name Role Phone Jaime Page Primary Care Provider [phone] Encounter Details Date Type Department Care Team (Late st Contact Info) Description 05/03/2024 Orders Only [facility] [address] [place] [address] Jaime Page PA [address] [place], [place] [phone] Mixed incontinence Social History Tobacco Use Types [...] Description 08/16/2025 9:30 AM EDT Office Visit [facility] [address] [place] [address] Gisselle Pastor [address] [place], [place] [phone] 08/23/2025 10:30 AM EST Office Visit [facility] [address] [place] [address] Sherly Garza DDS [address] [place] [address] documented as of this encounter Procedures Procedure [...] (male)(female) documented in this encounter Care Teams Interventional Radiology Technologist Relationship Specialty Start Date End Date Jaime Page PA [address] [place] [address] PCP - General Family Medicine 03/11/23 documented as of this encounter
--- OUTSIDE RECORDS SUMMARY | 2025-08-12 11:31 | XMS_ITS | Encounter Summary ---
Author Organization [employer] Address [address] [place] [address] Care Team Providers Care State Trooper Name Role Phone Subhash Garcia MD Primary Care Provider [phone]- [phone] Encounter Details Date Type Department Care Team (Late st Contact Info) Description 06/10/2025 Lab Requisition [facility] - Main Lab [address] [facility] [place] [address] Subhash Garcia MD [address] [place], [place] [phone] Type 2 diabetes mellitus without complications (CMS/HCC V24, CMS/HCC V28); Essential (primary) hypertension Social History Tobacco Use Types Packs/Day Years [...] Date/Time Associated Diagnosis Comments HEMOGLOBIN A1C Routine 06/11/2025 5:38 AM EDT Type 2 diabetes mellitus without complications (CMS/HCC V24, CMS/HCC V28) Essential (primary) hypertension documented in this encounter Results * (ABNORMAL) Hemoglobin A1c (06/11/2025 5:38 AM EDT) Hemoglobin A1C 8.5(H) <6.5 % LAB CHEMISTRY METHOD 06/11/2025 1:32 PM EDT [facility] Mean Bld Glu Estim. 197 mg/dL LAB CHEMISTRY METHOD 06/11/2025 1:32 PM EDT [facility] Blood Venous blood specimen / Unknown Venipuncture / Unknown 06/11/2025 5:38 AM EDT 06/11/2025 8:52 AM EDT Subhash Garcia MD LAB BLOOD ORDERABLES Final Result [facility] ([facility]) [facility] [address] [place] [address], documented in this encounter Visit Diagnoses Diagnosis Type 2 diabetes mellitus without complications (CMS/HCC V24, CMS/HCC V28) Essential (primary) hypertension Unspecified essential hypertension documented in this encounter Care Teams State Trooper Relationship Specialty Start Date End Date Subhash Garcia MD [address] [place] [address] PCP - General Internal Medicine 09/17/24 documented as of this encounter
--- OUTSIDE RECORDS SUMMARY | 2025-08-12 11:31 | XMS_ITS | Encounter Summary ---
Author Organization [employer] Address [address] [facility] 7 [place] [address] Care Team Providers Care Cooler Room Worker Name Role Phone Jaime Page Primary Care Provider [phone] Encounter Details Date Type Department Care Team (Late st Contact Info) Description 12/01/2023 Abstract [facility] [address] [place] [address] Jaime Page PA [address] [place] [address] Social History Tobacco Use Types [...] Description 08/16/2025 9:30 AM EDT Office Visit [facility] ADULT DENTAL [address] [place] [address] Gisselle Pastor [address] [place], [place] [phone] 08/23/2025 10:30 AM EST Office Visit [facility] AD[facility] [address] [place] [address] Sherly Garza DDS [address] [place] [address] documented as of this encounter Visit Diagnoses Not on filedocumented in this encounter Care Teams Cooler Room Worker Relationship Specialty Start Date End Date Jaime Page PA [address] [place] [id number] PCP - General Family Medicine 03/11/23 documented as of this encounter
--- OUTSIDE RECORDS SUMMARY | 2025-08-12 11:31 | XMS_ITS | Encounter Summary ---
Author Organization [employer] Address [address] [place] [address] Care Team Providers Care Patient Care Representative Name Role Phone Subhash Garcia MD Primary Care Provider [phone]- [phone] Encounter Details Date Type Department Care Team (Late st Contact Info) Description 03/05/2025 Lab Requisition [facility] - Main Lab [address] [facility] [place] [address] Subhash Garcia MD [address] [place], [place] [phone] Essential (primary) hypertension; Type 2 diabetes mellitus without complications (CMS/HCC V24, CMS/[facility] V28) Social History Tobacco Use Types Packs/Day [...] Date/Time Associated Diagnosis Comments HEMOGLOBIN A1C Routine 03/05/2025 6:46 AM EDT Essential (primary) hypertension Type 2 diabetes mellitus without complications (CMS/HCC V24, CMS/HCC V28) BASIC METABOLIC PANEL Routine 03/05/2025 6:46 AM EDT Essential (primary) hypertension Type 2 diabetes mellitus without complications (CMS/HCC V24, CMS/HCC V28) documented in this encounter Results * (ABNORMAL) Hemoglobin A1c (03/05/2025 6:46 AM EDT) Hemoglobin A1C 7.1(H) <6.5 % LAB CHEMISTRY METHOD 03/08/2025 8:50 AM EDT [facility] Mean Bld Glu Estim. 157 mg/dL LAB CHEMISTRY METHOD 03/08/2025 8:50 AM [facility] Blood Venous blood specimen / Unknown Venipuncture / Unknown 03/05/2025 6:46 AM EDT 03/05/2025 7:47 AM EDT Subhash Garcia MD LAB BLOOD ORDERABLES Final Result [facility] [address] [place] [address], * (ABNORMAL) Basic metabolic panel (03/05/2025 6:46 AM EDT) Sodium 142 133 - 145 mmol/L LAB CHEMISTRY METHOD 03/05/2025 9:03 AM [facility] Potassium 4.9 3.5 - 5.5 mmol/L LAB CHEMISTRY METHOD 03/05/2025 9:03 AM [facility] Chloride 107 96 - 110 mmol/L LAB CHEMISTRY METHOD 03/05/2025 9:03 AM [facility] CO2 28 21 - 32 mmol/L LAB CHEMISTRY METHOD 03/05/2025 9:03 AM [facility] Anion Gap 7 3 - 11 LAB CHEMISTRY METHOD 03/05/2025 9:03 AM [facility] Glucose 172(H) 70 - 100 mg/dL LAB CHEMISTRY METHOD 03/05/2025 9:03 AM [facility] BUN 11 5 - 25 mg/dL LAB CHEMISTRY METHOD 03/05/2025 9:03 AM [facility] Creatinine 0.61 0.50 - 1.10 mg/dL LAB CHEMISTRY METHOD 03/05/2025 9:03 AM [facility] eGFR 98 >=60 mL/min/1. 73m2 LAB CHEMISTRY METHOD 03/05/2025 9:[address] [facility] Comment:Calculation based on the Chronic Kidney Disease Epidemiology Collaboration (CKD-EPI) equation refit without adjustment for race. BUN/Creatinine Ratio 18.0 LAB CHEMISTRY METHOD 03/05/2025 9:[address] [facility] Calcium 8.8 8.5 - 10.5 mg/dL LAB CHEMISTRY METHOD 03/05/2025 9:[address] [facility] Blood Venous blood specimen / Unknown Venipuncture / Unknown 03/05/2025 6:46 AM EDT 03/05/2025 7:47 AM EDT us Subhash Garcia MD LAB BLOOD ORDERABLES Final Result [facility] [address] [place] [address], documented in this encounter Visit Diagnoses Diagnosis Essential (primary) hypertension Unspecified essential hypertension Type 2 diabetes mellitus without complications (CMS/HCC V24, CMS/HCC V28) documented in this encounter Care Teams Patient Care Representative Relationship Specialty Start Date End Date Subhash Garcia MD [address] [place] [phone] PCP - General Internal Medicine 09/17/24 documented as of this encounter
--- OUTSIDE RECORDS SUMMARY | 2025-08-12 11:31 | XMS_ITS | Encounter Summary ---
Author Organization [employer] Address [address] [facility] 7t [place] [address] Care Team Providers Care Professor Of Religious Studies Name Role Phone Jaime Page Primary Care Provider [phone] Reason for Visit * Reason Onset Date Comments release form 12/11/2024 Encounter Details Date Type Department Care Team ([facility] st Contact Info) Description 12/11/2024 Telephone [facility]ULT [facility]AL [address] [place] [address] Jennifer Glaser DDS release form Social History Tobacco Use Types [...] scanned in yesterday. It was sent to [facility]. Release of records for dental treatment for patient. Nursing from facility patient is in is looking for notes on patients visit to be faxed [phone] attn Nursing documented in this encounter Plan of Treatment Upcoming Encounters Date Type Department Care Team (Late st Contact Info) Description 08/16/2025 9:30 AM EDT Office Visit [facility] ADULT DENTAL [address] [place] [address] Gisselle Pastor [address] [place] [address] 08/23/2025 10:30 AM EST Office Visit [facility] ADULT DENTAL [address] [place] [address] Sherly Garza DDS [address] [place] [address] documented as of this encounter Visit Diagnoses Not on filedocumented in this encounter Care Teams Professor Of Religious Studies Relationship Specialty Start Date End Date Jaime Page PA [address] [place] [address] PCP - General Family Medicine 03/11/23 documented as of this encounter
--- OUTSIDE RECORDS SUMMARY | 2025-08-12 11:31 | XMS_ITS | Encounter Summary ---
Author Organization [employer] Address [address] [place] [address] Care Team Providers Care Assistant Paralegal Name Role Phone Subhash Garcia MD Primary Care Provider [phone] Encounter Details Date Type Department Care Team (Late st Contact Info) Description 02/04/2025 Lab Requisition [facility] - Main Lab [address] [facility] [place] [address] Subhash Garcia MD [address] [place] [phone] Type 2 diabetes mellitus without complications (CMS/HCC [...] documented as of this encounter Visit Diagnoses Diagnosis Type 2 diabetes mellitus without complications (CMS/HCC V24, CMS/HCC V28) documented in this encounter Care Teams Assistant Paralegal Relationship Specialty Start Date End Date Subhash Garcia MD [address] [place] [phone] PCP - General Internal Medicine 09/17/24 documented as of this encounter
--- OUTSIDE RECORDS SUMMARY | 2025-08-12 11:31 | XMS_ITS | Clinical Summary ---
Author Organization 299 [facility] Address [address] [place] [address] Phone Care Team Providers Care Clinical Support Associate Name Role Phone Subhash Garcia MD Primary Care Provider [phone] Encounters Date Type Department Care Team Description 06/10/2025 Lab Requisition [facility] - Main Lab 299 [facility] [place] [address] Subhash Garcia MD Type 2 diabetes mellitus without complications (CMS/HCC V24, CMS/HCC V28); Essential (primary) hypertension from Last 3 Months Social History Tobacco Use Types Packs/Day Years Used Date Smoking Tobacco: Never Assessed Comments Unknown Sex and Gender Information Value Date Recorded Sex Assigned at Not on file Legal Sex Female 12:54 PM EST Gender Identity Not on file Sexual Orientation Not on file Plan of Treatment Health Maintenance Due Date Last Done Comments Breast Cancer Screening 1955 Colorectal Cancer Screening: Colonoscopy 1955 Diabetes: Annual Foot Exam 12/22/1967 Diabetes: Annual Retina Eye Exam 12/22/1967 Diabetes: Annual Urine Albumin-Creatinine Ratio (uACR) 09/17/2024 Falls Risk Assessment 09/17/2024 Hepatitis C Screening 09/17/2024 Medicare Annual Wellness Visit 09/17/2024 Osteoporosis Screening (Bone Density Screening) 09/17/2024 Social Influencers of Health Screening 09/17/2024 Depression Screening 10/17/2024 COVID-19 Vaccine ( season) 2025 01/21/2023, 01/26/2022, 12/26/2020, Additional history exists Influenza Vaccine (#1) 2025 , 05/26/2021, 05/30/2020, Additional history exists Diabetes: Blood Sugar Control Test (HGBA1C) 12/12/2025 06/11/2025, 03/05/2025, 12/04/2024, Additional history exists Diabetes: Annual GFR (Glomerular Filtration Rate) 03/05/2026 03/05/2025, 12/04/2024 Hypertension/CHF/CAD Annual BMP Blood Test 03/05/2026 03/05/2025, 12/04/2024 Pneumococcal Vaccine: 50+ Years (3 of [...] EDT Type 2 diabetes mellitus without complications (CMS/[facility] V24, CMS/[facility] V28) Essential (primary) hypertension BASIC METABOLIC PANEL Routine 03/05/2025 6:46 AM EDT Essential (primary) hypertension Type 2 diabetes mellitus without complications ([facility]/HCC V24, CMS/HCC V28) LIPID PANEL WITH REFLEX TO DIRECT LDL Routine 12/04/2024 6:04 AM EST Hyperlipidemia, unspecified Essential (primary) hypertension Type 2 diabetes mellitus without complications (CMS/HCC) Other custodial (current) drug therapy from Last 3 Months or Most Recently Relevant to Health Maintenance Results * (ABNORMAL) Hemoglobin A1c (06/11/2025 5:38 AM EDT) Hemoglobin A1C 8.5(H) <6.5 % LAB CHEMISTRY METHOD 06/11/2025 1:32 PM EDT [facility] Mean Bld Glu Estim. 197 mg/dL LAB CHEMISTRY METHOD 06/11/2025 1:32 PM EDT [facility] Blood Venous blood specimen / Unknown Venipuncture / Unknown 06/11/2025 5:38 AM EDT 06/11/2025 8:52 AM EDT Subhash Garcia MD LAB BLOOD ORDERABLES Final Result [facility] [address] [place] [address], * (ABNORMAL) Basic metabolic panel (03/05/2025 6:46 AM EDT) Sodium 142 133 - 145 mmol/L LAB CHEMISTRY METHOD 03/05/2025 9:03 AM EDT [facility] Potassium 4.9 3.5 - 5.5 mmol/L LAB CHEMISTRY METHOD 03/05/2025 9:03 AM EDT [facility] Chloride 107 96 - 110 mmol/L LAB CHEMISTRY METHOD 03/05/2025 9:03 AM EDT [facility] CO2 28 21 - 32 mmol/L LAB CHEMISTRY METHOD 03/05/2025 9:03 AM [facility] Anion Gap 7 3 - 11 LAB CHEMISTRY METHOD 03/05/2025 9:03 AM [facility] Glucose 172(H) 70 - 100 mg/dL LAB CHEMISTRY METHOD 03/05/2025 9:03 AM [facility] BUN 11 5 - 25 mg/dL LAB CHEMISTRY METHOD 03/05/2025 9:03 AM [facility] Creatinine 0.61 0.50 - 1.10 mg/dL LAB CHEMISTRY METHOD 03/05/2025 9:03 AM [facility] eGFR 98 >=60 mL/min/1. 73m2 LAB CHEMISTRY METHOD 03/05/2025 9:03 AM [facility] Comment:Calculation based on the Chronic Kidney Disease Epidemiology Collaboration (CKD-EPI) equation refit without adjustment for race. BUN/Creatinine Ratio 18.0 LAB CHEMISTRY METHOD 03/05/2025 9:03 AM [facility] Calcium 8.8 8.5 - 10.5 mg/dL LAB CHEMISTRY METHOD 03/05/2025 9:03 AM [facility] Blood Venous blood specimen / Unknown Venipuncture / Unknown 03/05/2025 6:46 AM EDT 03/05/2025 7:47 AM EDT Subhash Garcia MD LAB BLOOD ORDERABLES Final Result [facility] [address] [place] [address], * (ABNORMAL) Lipid panel with reflex to direct LDL (12/04/2024 6:04 AM EST) Cholesterol 98 0 - 200 mg/dL LAB CHEMISTRY METHOD 12/04/2024 12:42 PM EST [facility] Triglycerides 172(H) 0 - 150 mg/dL LAB CHEMISTRY METHOD 12/04/2024 12:42 PM EST [facility] HDL 34(L) >=40 mg/dL LAB CHEMISTRY METHOD 12/04/2024 12:42 PM [facility] LDL Calculated 30 0 - 100 mg/dL LAB CHEMISTRY METHOD 12/04/2024 12:42 PM [facility] VLDL Cholesterol Allen 34.4 mg/dL LAB CHEMISTRY METHOD 12/04/2024 12:42 PM [facility] Non HDL Chol. (LDL+VLDL) 64 <145 mg/dL LAB CHEMISTRY METHOD 12/04/2024 12:42 PM [facility] Chol/HDL Ratio 2.9 0.0 - 4.4 LAB CHEMISTRY METHOD 12/04/2024 12:42 PM [facility] Blood Venous blood specimen / Unknown Venipuncture / Unknown 12/04/2024 6:04 AM EST 12/04/2024 10:12 AM EST us Subhash Garcia MD LAB BLOOD ORDERABLES Final Result [facility] [address] [place] [address], from Last 3 Months or Most Recently Relevant to Health Maintenance Insurance MEDICAID - [place] MEDICARE Care Teams Clinical Support Associate Relationship Specialty Start Date End Date Subhash Garcia MD [address] [place] [address] PCP - General Internal Medicine 09/17/24
--- OUTSIDE RECORDS SUMMARY | 2025-08-12 11:31 | XMS_ITS | Encounter Summary ---
Author Organization [employer] Address [address] [place] [address] Care Team Providers Care Drug Enforcement Agent Name Role Phone Subhash Garcia MD Primary Care Provider [phone]- [phone] Encounter Details Date Type Department Care Team (Late st Contact Info) Description 09/17/2024 Lab Requisition [facility] - Main Lab 299 [facility] [place] [address] Subhash Garcia MD [address] [place] [address] Type 2 diabetes mellitus without complications (CMS/HCC [...] EST Type 2 diabetes mellitus without complications ([facility]) documented in this encounter Results * (ABNORMAL) Hemoglobin A1c (09/18/2024 6:51 AM EST) Hemoglobin A1C 7.4(H) <6.5 % LAB CHEMISTRY METHOD 09/18/2024 2:[address] [facility] Mean Bld Glu Estim. 166 mg/dL LAB CHEMISTRY METHOD 09/18/2024 2:[address] [facility] Blood Venous blood specimen / Unknown Venipuncture / Unknown 09/18/2024 6:51 AM EST 09/18/2024 11:53 AM EST us Subhash Garcia MD LAB BLOOD ORDERABLES Final Result [facility] ([facility]) [facility] [address] [place] [address], documented in this encounter Visit Diagnoses Diagnosis Type 2 diabetes mellitus without complications (CMS/HCC V24, CMS/HCC V28) documented in this encounter Care Teams Drug Enforcement Agent Relationship Specialty Start Date End Date Subhash Garcia MD [address] [place] [address] PCP - General Internal Medicine 09/17/24 documented as of this encounter
== END 2025-08-12 10:29 | disposition home or self-care (01) ==
LOC: HO.HSM 09:55
PROVIDERS: PCP Radiology Radiation Oncology; Referring Provider Radiology Radiation Oncology; Visit Provider Registered Nurse
DX: G20.A1 Parkinson's disease without dyskinesia, without mention of fluctuations (principal); F02.82 Dementia in other diseases classified elsewhere, unspecified severity, with psychotic disturbance
CPT/HCPCS: 99214

== ENCOUNTER → 2025-08-12 09:54 | Outpatient (BNVA) | payer MEDICARE, MEDICAID, SELFPAY | PROVIDERS: PCP Radiology Radiation Oncology; Referring Provider Radiology Radiation Oncology; Visit Provider Registered Nurse | DX: G20.A1 Parkinson's disease without dyskinesia, without mention of fluctuations (principal); F03.90 Unspecified dementia, unspecified severity, without behavioral disturbance, psychotic disturbance, mood disturbance, and anxiety; F29 Unspecified psychosis not due to a substance or known physiological condition | CPT/HCPCS: 99212 ==

== ENCOUNTER 2025-10-09 08:43 | Outpatient (AMB) | payer MEDICARE, MEDICAID, SELFPAY ==
--- OUTSIDE RECORDS SUMMARY | 2025-10-02 09:30 | XMS_ITS | Encounter Summary ---
Author Organization [employer] Address [address] [facility] 7t [place] [address] Care Team Providers Care Corporate Recruiter Name Role Phone Jaime Page Primary Care Provider [phone] Reason for Visit * Reason Comments Filling Encounter Details Date Type Department Care Team ([facility] st Contact Info) Description 10/02/2025 9:30 AM EST Office Visit [facility] ADULT DENTAL [address] [place] [address] Sherly Garza DDS [address] [place] [address] Social History Tobacco Use Types Packs/Day Years [...] Reading Time Taken Comments Blood Pressure 100/70 10/02/2025 9:24 AM EST Pulse - - Temperature - - Respiratory Rate - - Oxygen Saturation - - Inhaled Oxygen Concentration - - Weight - - Height - - Body Mass Index - - documented in this encounter Progress Notes * Sherly Garza DDS - 10/02/2025 9:30 AM EST Dental procedures in this visit D2392 - RESIN-BASED COMPOSITE - 2 SURF, POSTERIOR 20 SHANAE (Completed) Service provider: Sherly Garza DDS Billing provider: Hannah Boston DDS D2392 - RESIN-BASED COMPOSITE - 2 SURF, POSTERIOR 5 DO (Completed) Service provider: Sherly Garza DDS [employer] provider: Hannah Boston DDS [id number] - CASE PRESENTATION, DETAILED AND EXTENSIVE TREATMENT PLANNING (Completed) Service provider: Sherly Garza DDS Billing provider: Hannah Boston DDS Patient ID: Jennifer Mccullough is a 69 y.o. female. Time Out: Date: 10/02/2025 Location: [facility] Tooth: #5 and #20 Procedure: Mosque Verified the above with patient, assistant merchandise manager, and provider. Confirmed via patient's chart, intraorally and by radiographs. Printing Specialist: not applicable Composite episcopal done on #5,20 , by Dr. Sherly Garza DDS Risk, benefits, and alternatives discussed with the patient. CONSENT FORM INITIALED & SIGNED BY THE PATIENT AND COUNTERSIGNED BY Dr. Sherly Garza DDS Medical history: Reviewed in EHR Vitals: Blood pressure 100/70. Allergies: Reviewed in EHR Medications: Reviewed in EHR ASA III - Local infiltration with 2 carpule 2% lidocaine 1:100,000 epinephrine - Existing episcopal and recurrent decay removed - Matrix band and wedge used as needed - Desensitizer: Gluma - Etching done using 37% phosphoric acid. - tourist agent applied. - Composite episcopal done using Filtek body composite, shade A4 - Anatomy and margins adjusted - Occlusion checked with articulating paper - Necessary reductions made. - Mosque smoothed and polished. - Post op instructions given Patient satisfied, left in stable condition Patient made aware possible post op sensitivity NV: Continue with restorative. Provider: Dr. Sherly Garza DDS Heavy Equipment Service Technician: Huang Villa Supervising dentist: Dr. Hannah Boston * Hannah Boston DDS - 10/02/2025 9:30 AM EST I have reviewed the documentation and dental procedures completed by the rendering provider, Sherly Garza DDS, and approve their chart entries for this visit. MUSA Mccallum DDS documented in this encounter Plan of Treatment Upcoming Encounters Date Type Department Care Team (Late st Contact Info) Description 10/15/2025 8:00 AM EST Office Visit [facility] ADULT DENTAL [address] [place] [address] Sherly Garza DDS [address] [place] [address] 03/12/2026 8:45 AM EDT Office Visit [facility] ADULT DENTAL [address] [place] [address] Gustavo Shaw Scheduled Orders Name Type Priority Associated Diagnoses Orde r Schedule 12 DO 12 DO RESIN-BASED COMPOSITE - 2 SURF, POSTERIOR Dental Routine [address] arting 10/02/2025 documented as of this encounter Goals Goal Patient Goal Type Associated Problems Recent Progress Patient-Stated? Author Help patients manage their type 2 diabetes Care Plan Help patients manage their type 2 diabetes No Sherly Garza DDS Patient has chronic kidney disease Care Plan Patient has chronic kidney disease No hSerly Garza DDS Patient has chronic kidney disease Care Plan Patient has chronic kidney disease No Gustavo Shaw Patient has chronic kidney disease Care Plan Patient has chronic kidney disease No Huang Gibson Weekly blood pressure task Care Plan Weekly blood pressure task No Sherly Garza DDS documented as of this encounter Procedures Procedure Name Priority Date/Time Associated Diagnosis Comments 5 DO RESIN-BASED COMPOSITE - 2 SURF, POSTERIOR Routine 10/02/2025 9:30 AM EST 20 SHANAE RESIN-BASED COMPOSITE - 2 SURF, POSTERIOR Routine 10/02/2025 9:30 AM EST CASE PRESENTATION, DETAILED AND EXTENSIVE TREATMENT PLANNING Routine 10/02/2025 9:30 AM EST documented in this encounter Visit Diagnoses Not on filedocumented in this encounter Additional Health Concerns Active Problems Noted Date Diagnosed Date Help patients manage their type 2 diabetes 08/28 Patient has chronic kidney disease 08/28/2025 Patient has chronic kidney disease 09/10/2025 Patient has chronic kidney disease 10/02/2025 Weekly blood pressure task 10/02/2025 documented as of this encounter Care Teams Corporate Recruiter Relationship Specialty Start Date End Date Jaime Page PA [address] [place] [address] PCP - General Family Medicine 03/11/23 documented as of this encounter
--- NOTE | 2025-10-09 08:45 | A.OFFVIS_ITS ---
Intake Visit Reasons: 6m/PVR/UA Intake Note: Patient is present for 6M/PVR/UA Urology Medication:NONE Antibiotic Allergy:NONE Blood Thinner:NONE LAST PVR:0ML'S TODAY'S PVR:0ML'S Health Policy Nurse Required: No Allergies No Known Allergies Allergy (Verified 10/09/25 09:30) Medication List - Last Reconciled 10/09/25 by NYDIA Jones acetaminophen ER 650 mg PO Q4H PRN albuterol sulfate 90 mcg/actuation 2 puffs inhalation Q6H PRN aripiprazole 10 mg PO DAILY carbidopa-levodopa 25-100 mg 1 tab PO TID dapagliflozin propanediol (Farxiga) 10 mg PO DAILY guaifenesin 200 mg PO Q4H PRN lisinopril 10 mg PO DAILY lorazepam 0.5 mg PO DAILY PRN lorazepam 0.5 mg PO BID memantine 10 mg PO BID metformin ER 1,500 mg PO DAILY Saccharomyces boulardii (Daily Probiotic (S. boulardii)) 250 mg PO BID simvastatin 20 mg PO BEDTIME vibegron (Gemtesa) 75 mg PO DAILY HPI Comments Details: Jennifer Machado is a pleasant 69-year-old female patient. She has a past medical history of hyperlipidemia, schizophrenia, atopic dermatitis, anemia, obesity, type 2 diabetes, GERD, hypertension, Alzheimer's, and major neurocognitive disorder. She presents to the office today for follow-up of her renal cyst as well as lower urinary tract symptoms. In discussion with the patient today she reports to be doing and feeling well. She denies having had any bothersome urinary issues or concerns since her last office visit here. She reports compliance with 75 mg of Gemtesa daily as prescribed. In office urinalysis results reviewed with the patient today. PVR 0 mL. Previous workup has included a renal ultrasound 10/09 noting bilateral kidneys are normal in size, contour, and echogenicity. There are no renal calculi or hydronephrosis noted bilaterally. There is and anechoic cyst in the mid pole of the right kidney measuring 2.5 cm. When asked she denies urinary urgency, urinary frequency, incontinence, nocturia, hematuria, dysuria, foul smelling urine, changes to urinary stream, flank pain, fever, and or chills. She is happy with her current voiding parameters. Discussed affects of diabetes on the bladder/lower urinary tract symptoms and overall health and well-being. All questions were answered. She otherwise offers offers no other issues or concerns at this time. [facility] Medical History Hyperlipidemia Schizophreniform disorder Atopic dermatitis Anemia Obesity Type 2 diabetes mellitus Gastroesophageal reflux disease without esophagitis Primary hypertension Alzheimer's dementia Major neurocognitive disorder Social History Household Members: Other Housing: Assisted Living Facility Housing Other:: [facility] Patient Tobacco Use Status: Never used Tobacco service: No Review of Systems Const Reports no additional complaints Eyes Reports no additional complaints ENT Reports no additional complaints Card Reports as per HPI Resp Reports no additional complaints GI Reports as per HPI Reports as per HPI Musc Reports no additional complaints Skin/Breast Reports as per HPI Neuro Reports as per HPI Psych Reports as per HPI Endo Reports as per HPI Jimi/Lymph Reports no additional complaints Aller/Immun Reports no additional complaints Physical Exam Const General: cooperative, healthy appearing, comfortable, no acute distress, well developed, alert and awake Nutritional Appearance: overweight Orientation/consciousness: patient oriented x3 Limitations: no limitations HEENT Head: Yes normal to inspection, Yes normocephalic and Yes atraumatic Ears: hearing grossly normal bilaterally Eyes General: appearance normal, both eyes and all related structures Neck Neck: Yes normal visual inspection and Yes trachea midline Chest Chest palpation & inspection: normal inspection of the chest Resp Effort & Inspection: normal respiratory effort and able to speak in complete sentences Cardio Rate: regular rate GI Inspection: Yes normal to inspection General: Yes no CVA tenderness Back/Spine/Pelvis Back: no CVA tenderness Skin General skin exam: no rashes or lesions noted Neuro General: patient oriented x3 Extrem General: Yes normal to inspection Psych Appearance: grossly normal and well kempt Mental Status: other (Patient slow to respond at times) Speech and movement: Clear speech present Affect: normal affect Attitude: cooperative Thought process: Normal thought process present Thought content: Normal thought content present Insight: Fair insight present (Psych) Judgement: Fair judgement present (Psych) Office Procedures Post Void Residual Post Residual Void Post Void Residual (PVR): 0 [id number] Void Residual by ultrasound Results AMB Urinalysis, Automated UA Leukoctes 15 Dari/uL Last Edit by KATRIN Myrick on 10/09/25 09:05 UA Nitrite Negative Last Edit by Roberto Marcus [facility] on 10/09/25 09:05 UA Urobilinogen 0.2 mg/dL Last Edit by Roberto Marcus [facility] on 10/09/25 09:0 5 UA Protein 0 mg/dL Last Edit by Roberto Marcus [facility] on 10/09/25 09:05 UA pH 6.0 Last Edit by Roberto Marcus [facility] on 10/09/25 09:05 UA Blood 0 Bennett/uL Last Edit by Roberto Marcus [facility] on 10/09/25 09:05 UA Specific [place] 1.015 Last Edit by Roberto Marcus [facility] on 10/09/25 09: 05 UA Ketone Negative Last Edit by Roberto Marcus [facility] on 10/09/25 09:05 UA Bilirubin 0 mg/dL Last Edit by Roberto Marcus [facility] on 10/09/25 09:05 UA Glucose 0 mg/dL Last Edit by Roberto Marcus [facility] on 10/09/25 09:05 Results Reviewed Results Reviewed: Laboratory Last Values Urine pH (Auto) 6.0 10/09/25 09:04 Specific [place] (Auto) 1.015 10/09/25 09:04 Urine Protein (Auto) 0 mg/dL 10/09/25 09:04 Glucose (UA)(Auto) 0 mg/dL 10/09/25 09:04 Urine Ketones (Auto) Negative 10/09/25 09:04 Urine Blood (Auto) 0 Bennett/uL 10/09/25 09:04 Urine Nitrite (Auto) Negative 10/09/25 09:04 Urine Bilirubin (Auto) 0 mg/dL 10/09/25 09:04 Urine Urobilinogen (Auto) 0.2 mg/dL 10/09/25 09:04 Leukocyte Esterase (Auto) 15 Dari/uL 10/09/25 09:04 Assessment & Plan Assessment & Plan (1) Renal cyst: Code(s): N28.1 - Cyst of kidney, acquired Category: Medical (2) Lower urinary tract symptoms: Code(s): R39.9 - Unspecified symptoms and signs involving the genitourinary system Category: Medical Plan In office urinalysis results with the patient today; as noted above. PVR 0 mL Continue Gemtesa as discussed and prescribed. All questions were answered. She currently denies any bothersome urinary issues or concerns. She reports be happy with current voiding parameters. Will continue with surveillance monitoring. Follow-up in 6 months with imaging and PVR; or sooner with any issues, concerns, and or questions. Orders: Orders AMB Urinalysis Automated Today Z13.9 - Encounter for screening, unspecified US renal BI 6 Months N20.0 - Calculus of kidney Patient Instructions: The patient had an opportunity to ask questions regarding the treatment plan. All questions were answered. Physical exam, labs, and imaging were discussed and reviewed in detail. As well as risks, benefits, and discussion of treatment choices. No major barriers to understanding were identified. The patient expressed understanding and agreement with the above treatment plan. The patient was made aware they should contact our office by phone for worsening of their current condition, the appearance of new symptoms, or with any questions or concerns. Compliance is encouraged with any medications and follow up testing that is ordered. It is a privilege to be allowed the opportunity to participate in? your urological care.? Again, if you have any questions or concerns If you have any questions or concerns please do not hesitate to contact me. The office is [phone]. This note is constructed using voice recognition software. While every effort has been made to ensure accuracy customer sales consultant errors may have been included. Yours sincerely, NYDIA Jones Coding Level of Care Code Est Pt Level 3 (79363) Add On Problem Visit Only Diagnoses Renal cyst N28.1 Lower urinary tract symptoms R39.9 CPT Codes Post Residual Void - PVR CPT Code: 15885-Farq Void Residual by ultrasound ([id number])
--- OUTSIDE RECORDS SUMMARY | 2025-10-09 08:48 | XMS_ITS | Encounter Summary ---
Author Organization [employer] Address [address] [place] [address] Care Team Providers Care Automation Test Developer Name Role Phone Subhash Garcia MD Primary Care Provider +1- [phone] Encounter Details Date Type Department Care Team (Late st Contact Info) Description 09/16/2025 Lab Requisition [facility] - Main Lab [address] [facility] [place] [address] Subhash Garcia MD [address] [place], [place] [id number] Type 2 diabetes mellitus without complications (CMS/HCC [...] Date/Time Associated Diagnosis Comments HEMOGLOBIN A1C Routine 09/17/2025 7:02 AM EST Type 2 diabetes mellitus without complications (CMS/HCC V24, CMS/HCC V28) Essential (primary) hypertension documented in this encounter Results * (ABNORMAL) Hemoglobin A1c (09/17/2025 7:02 AM EST) Hemoglobin A1C 8.5(H) <6.5 % LAB CHEMISTRY METHOD 09/17/2025 10:07 AM EST [facility] Mean Bld Glu Estim. 197 mg/dL LAB CHEMISTRY METHOD 09/17/2025 10:07 AM [facility] Blood Venous blood specimen / Unknown Venipuncture / Unknown 09/17/2025 7:02 AM EST 09/17/2025 9:30 AM EST Subhash Garcia MD LAB BLOOD ORDERABLES Final Result [facility] [address] [place] [address], documented in this encounter Visit Diagnoses Diagnosis Type 2 diabetes mellitus without complications (CMS/HCC V24, CMS/HCC V28) Essential (primary) hypertension Unspecified essential hypertension documented in this encounter Care Teams Automation Test Developer Relationship Specialty Start Date End Date Subhash Garcia MD [address] [place] [id number] PCP - General Internal Medicine 09/17/24 documented as of this encounter
--- OUTSIDE RECORDS SUMMARY | 2025-10-09 08:48 | XMS_ITS | Encounter Summary ---
Author Organization [employer] Address [address] [place] [address] Care Team Providers Care Dispatch Supervisor Name Role Phone Subhash Garcia MD Primary Care Provider +1- [phone] Encounter Details Date Type Department Care Team (Late st Contact Info) Description 09/17/2024 Lab Requisition [facility] - Main Lab [address] [facility] [place] [address] Subhash Garcia MD [address] [place] [address] Type 2 diabetes mellitus without complications (CMS/HCC [...] EST Type 2 diabetes mellitus without complications ([facility]) documented in this encounter Results * (ABNORMAL) Hemoglobin A1c (09/18/2024 6:51 AM EST) Hemoglobin A1C 7.4(H) <6.5 % LAB CHEMISTRY METHOD 09/18/2024 2:16 PM EST [facility] Mean Bld Glu Estim. 166 mg/dL LAB CHEMISTRY METHOD 09/18/2024 2:16 PM EST [facility] Blood Venous blood specimen / Unknown Venipuncture / Unknown 09/18/2024 6:51 AM EST 09/18/2024 11:53 AM EST us Subhash Garcia MD LAB BLOOD ORDERABLES Final Result [facility] [address] [place] [address], documented in this encounter Visit Diagnoses Diagnosis Type 2 diabetes mellitus without complications (CMS/HCC V24, CMS/HCC V28) documented in this encounter Care Teams Dispatch Supervisor Relationship Specialty Start Date End Date Subhash Garcia MD [address] [place] [id number] PCP - General Internal Medicine 09/17/24 documented as of this encounter
--- OUTSIDE RECORDS SUMMARY | 2025-10-09 08:48 | XMS_ITS | Clinical Summary ---
Author Organization [address] [facility] Address [address] [place] [address] Phone Care Team Providers Care Boring Machine Operator Production Name Role Phone Subhash Garcia MD Primary Care Provider +1- [phone] Encounters Date Type Department Care Team Description 10/08/2025 Lab Requisition [facility] Lab [address] [place] [address] Subhash Garcia MD Type 2 diabetes mellitus without complications (CMS/HCC V24, CMS/HCC V28) 09/16/2025 Lab Requisition [facility] Lab [address] [place] [address] Subhash Garcia MD Type 2 [...] Additional history exists Influenza Vaccine (#1) 2025 2, 05/26/2021, 05/30/2020, Additional history exists Diabetes: Annual GFR (Glomerular Filtration Rate) 03/05/2026 03/05/2025, 12/04/2024 Hypertension/CHF/CAD Annual BMP Blood Test 03/05/2026 03/05/2025, 12/04/2024 Diabetes: Blood Sugar Control Test (HGBA1C) 03/18/2026 09/17/2025, 06/11/2025, 03/05/2025, Additional history exists Pneumococcal Vaccine: 50+ Years [...] Procedure Name Priority Date/Time Associated Diagnosis Comments LAVENDER - EDTA Routine 10/08/2025 7:54 AM EST Type 2 diabetes mellitus without complications ([facility]/HCC V24, [facility] V28) HEMOGLOBIN A1C Routine 09/17/2025 7:02 AM EST Type 2 diabetes mellitus without complications ([facility]/HCC V24, CMS/HCC V28) Essential (primary) hypertension BASIC METABOLIC PANEL Routine 03/05/2025 6:46 AM EDT Essential (primary) hypertension Type 2 diabetes mellitus without complications ([facility]/HCC V24, CMS/HCC V28) LIPID PANEL WITH REFLEX TO DIRECT LDL Routine 12/04/2024 6:04 AM EST Hyperlipidemia, unspecified Essential (primary) hypertension Type 2 diabetes mellitus without complications ([facility]) Other alf (current) drug therapy from Last 3 Months or Most Recently Relevant to Health Maintenance Results * Lavender tube (10/08/2025 7:54 AM EST) Pathologist [facility] Extra Tube Hold for add-ons. 10/08/2025 3:01 PM EST [facility] Comment:Auto resulted. Blood Venous blood specimen / Unknown 10/08/2025 7:54 AM EST 10/08/2025 9:57 AM EST Subhash Garcia MD LAB BLOOD ORDERABLES Final Result [facility] [address] [place] [address], * (ABNORMAL) Hemoglobin A1c (09/17/2025 7:02 AM EST) Pathologist [facility] Hemoglobin A1C 8.5(H) <6.5 % LAB CHEMISTRY METHOD 09/17/2025 10:07 AM EST [facility] Mean Bld Glu Estim. 197 mg/dL LAB CHEMISTRY METHOD 09/17/2025 10:07 AM EST [facility] Blood Venous blood specimen / Unknown Venipuncture / Unknown 09/17/2025 7:02 AM EST 09/17/2025 9:30 AM EST Subhash Garcia MD LAB BLOOD ORDERABLES Final Result [facility] [address] [place] [address], * (ABNORMAL) Basic metabolic panel (03/05/2025 6:46 AM EDT) Sodium 142 133 - 145 mmol/L LAB CHEMISTRY METHOD 03/05/2025 9:03 AM [facility] Potassium 4.9 3.5 - 5.5 mmol/L LAB CHEMISTRY METHOD 03/05/2025 9:03 AM [facility] Chloride 107 96 - 110 mmol/L LAB CHEMISTRY METHOD 03/05/2025 9:03 AM [facility] CO2 28 21 - 32 mmol/L LAB CHEMISTRY METHOD 03/05/2025 9:03 AM [facility] Anion Gap 7 3 - 11 LAB CHEMISTRY METHOD 03/05/2025 9:03 AM [facility] Glucose 172(H) 70 - 100 mg/dL LAB CHEMISTRY METHOD 03/05/2025 9:03 AM [facility] BUN 11 5 - 25 mg/dL LAB CHEMISTRY METHOD 03/05/2025 9:03 AM [facility] Creatinine 0.61 0.50 - 1.10 mg/dL LAB CHEMISTRY METHOD 03/05/2025 9:03 AM [facility] eGFR 98 >=60 mL/min/1. 73m2 LAB CHEMISTRY METHOD 03/05/2025 9:03 AM [facility] Comment:Calculation based on the Chronic Kidney Disease Epidemiology Collaboration (CKD-EPI) equation refit without adjustment for race. BUN/Creatinine Ratio 18.0 LAB CHEMISTRY METHOD 03/05/2025 9:03 AM EDT [facility] Calcium 8.8 8.5 - 10.5 mg/dL LAB CHEMISTRY METHOD 03/05/2025 9:03 AM EDT [facility] Blood Venous blood specimen / Unknown Venipuncture / Unknown 03/05/2025 6:46 AM EDT 03/05/2025 7:47 AM EDT us Subhash Garcia MD LAB BLOOD ORDERABLES Final Result [facility] [address] [place] [address], [place] [phone] * (ABNORMAL) Lipid panel with reflex to direct LDL (12/04/2024 6:04 AM EST) Cholesterol 98 0 - 200 mg/dL LAB CHEMISTRY METHOD 12/04/2024 12:42 PM [facility] Triglycerides 172(H) 0 - 150 mg/dL LAB CHEMISTRY METHOD 12/04/2024 12:42 PM [facility] HDL 34(L) >=40 mg/dL LAB CHEMISTRY METHOD 12/04/2024 12:42 PM [facility] LDL Calculated 30 0 - 100 mg/dL LAB CHEMISTRY METHOD 12/04/2024 12:42 PM [facility] VLDL Cholesterol Allen 34.4 mg/dL LAB CHEMISTRY METHOD 12/04/2024 12:42 PM [facility] Non HDL Chol. (LDL+VLDL) 64 <145 mg/dL LAB CHEMISTRY METHOD 12/04/2024 12:42 PM [facility] Chol/HDL Ratio 2.9 0.0 - 4.4 LAB CHEMISTRY METHOD 12/04/2024 12:42 PM [facility] Blood Venous blood specimen / Unknown Venipuncture / Unknown 12/04/2024 6:04 AM EST 12/04/2024 10:12 AM EST us Subhash Garcia MD LAB BLOOD ORDERABLES Final Result [facility] [address] [place] [address], [place] [phone] from Last 3 Months or Most Recently Relevant to Health Maintenance Insurance MEDICAID - [place] MEDICARE Care Teams Boring Machine Operator Production Relationship Specialty Start Date End Date Subhash Garcia MD [address] [place] [address] PCP - General Internal Medicine 09/17/24
--- OUTSIDE RECORDS SUMMARY | 2025-10-09 08:48 | XMS_ITS | Encounter Summary ---
Author Organization [employer] Address [address] [place] [address] Care Team Providers Care Senior Materials Analyst Name Role Phone Subhash Garcia MD Primary Care Provider +1- [phone] Encounter Details Date Type Department Care Team (Late st Contact Info) Description 06/10/2025 Lab Requisition [facility] - Main Lab [address] [facility] [place] [address] Subhash Garcia MD [address] [place], [place] [phone] Type 2 diabetes mellitus without complications (CMS/HCC [...] Garcia MD LAB BLOOD ORDERABLES Final Result [facility] [address] [place] [address], documented in this encounter Visit Diagnoses Diagnosis Type 2 diabetes mellitus without complications (CMS/HCC V24, CMS/HCC V28) Essential (primary) hypertension Unspecified essential hypertension documented in this encounter Care Teams Senior Materials Analyst Relationship Specialty Start Date End Date Subhash Garcia MD [address] [place] [id number] PCP - General Internal Medicine 09/17/24 documented as of this encounter
--- OUTSIDE RECORDS SUMMARY | 2025-10-09 08:48 | XMS_ITS | Encounter Summary ---
Author Organization [employer] Address [address] [place] [address] Care Team Providers Care Geoscientist Name Role Phone Subhash Garcia MD Primary Care Provider +1- [phone] Encounter Details Date Type Department Care Team (Late st Contact Info) Description 03/05/2025 Lab Requisition [facility] - Main Lab [address] [facility] [place] [address] Subhash Garcia MD [address] [place], [place] [phone] Essential (primary) hypertension; Type 2 diabetes mellitus without complications (CMS/HCC V24, CMS/[facility] V28) Social History Tobacco Use [...] CHEMISTRY METHOD 03/08/2025 8:50 AM EDT [facility] Mean Bld Glu Estim. 157 mg/dL LAB CHEMISTRY METHOD 03/08/2025 8:50 AM [facility] Blood Venous blood specimen / Unknown Venipuncture / Unknown 03/05/2025 6:46 AM EDT 03/05/2025 7:47 AM EDT Subhash Garcia MD LAB BLOOD ORDERABLES Final Result [facility] [address] [place] [address], * (ABNORMAL) Basic metabolic panel (03/05/2025 6:46 AM EDT) Sodium 142 133 - 145 mmol/L LAB CHEMISTRY METHOD 03/05/2025 9:03 AM [facility] Potassium 4.9 3.5 - 5.5 mmol/L LAB CHEMISTRY METHOD 03/05/2025 9:03 AM [facility] Chloride 107 96 - 110 mmol/L LAB CHEMISTRY METHOD 03/05/2025 9:03 AM [facility] CO2 28 21 - 32 mmol/L LAB CHEMISTRY METHOD 03/05/2025 9:03 AM [facility] Anion Gap 7 3 - 11 LAB CHEMISTRY METHOD 03/05/2025 9:03 AM [facility] Glucose 172(H) 70 - 100 mg/dL LAB CHEMISTRY METHOD 03/05/2025 9:03 AM [facility] BUN 11 5 - 25 mg/dL LAB CHEMISTRY METHOD 03/05/2025 9:03 AM [facility] Creatinine 0.61 0.50 - 1.10 mg/dL LAB CHEMISTRY METHOD 03/05/2025 9:03 AM [facility] eGFR 98 >=60 mL/min/1. 73m2 LAB CHEMISTRY METHOD 03/05/2025 9:03 AM EDT [facility] Comment:Calculation based on the [...] Final Result [facility] [address] [place] [address], documented in this encounter Visit Diagnoses Diagnosis Essential (primary) hypertension Unspecified essential hypertension Type 2 diabetes mellitus without complications (CMS/HCC V24, CMS/HCC V28) documented in this encounter Care Teams Geoscientist Relationship Specialty Start Date End Date Subhash Garcia MD [address] [place] [address] PCP - General Internal Medicine 09/17/24 documented as of this encounter
--- OUTSIDE RECORDS SUMMARY | 2025-10-09 08:48 | XMS_ITS | Encounter Summary ---
Author Organization [employer] Address [address] [facility] 7 [place] [address] Care Team Providers Care Chair Springer Name Role Phone Jaime Page Primary Care Provider [phone] Encounter Details Date Type Department Care Team (Late st Contact Info) Description 12/01/2023 Abstract [facility] [address] [place] [address] Jaime Page PA [address] [place] [address] Social History Tobacco Use Types [...] Description 10/15/2025 8:00 AM EST Office Visit [facility] [address] [place] [address] Sherly Garza DDS [address] [place] [address] 03/12/2026 8:45 AM EDT Office Visit [facility] [address] [place] [address] Gustavo Shaw documented as of this encounter Visit Diagnoses Not on filedocumented in this encounter Care Teams Chair Springer Relationship Specialty Start Date End Date Jaime Page PA [address] [place] [id number] PCP - General Family Medicine 03/11/23 documented as of this encounter
--- OUTSIDE RECORDS SUMMARY | 2025-10-09 08:48 | XMS_ITS | Encounter Summary ---
Author Organization [employer] Address [address] [place] [address] Care Team Providers Care Centerless Grinder Name Role Phone Subhash Garcia MD Primary Care Provider [phone] Encounter Details Date Type Department Care Team (Late st Contact Info) Description 12/04/[address] [facility] - Main Lab [address] [facility] [place] [address] Subhash Garcia MD [address] [place], [place] [phone] Hyperlipidemia, unspecified; Essential (primary) hypertension; Type 2 diabetes mellitus without complications (CMS/HCC V24, CMS/HCC V28); Other diploma maker (current) drug therapy Social History Tobacco Use [...] 2 diabetes mellitus without complications (CMS/HCC) Other fci (current) drug therapy COMPLETE BLOOD COUNT Routine 12/04/2024 6:04 AM EST Hyperlipidemia, unspecified Essential (primary) hypertension Type 2 diabetes mellitus without complications (CMS/HCC) Other diploma maker (current) drug therapy THYROID STIMULATING HORMONE Routine 12/04/2024 6:04 AM EST Hyperlipidemia, unspecified Essential (primary) hypertension Type 2 diabetes mellitus without complications (CMS/HCC) Other diploma maker (current) drug therapy HEMOGLOBIN A1C Routine 12/04/2024 6:04 AM EST Hyperlipidemia, unspecified Essential (primary) hypertension Type 2 diabetes mellitus without complications (CMS/HCC) Other fci (current) drug therapy VITAMIN B12 Routine 12/04/2024 6:04 AM EST Hyperlipidemia, unspecified Essential (primary) hypertension Type 2 diabetes mellitus without complications (CMS/HCC) Other fci (current) drug therapy COMPREHENSIVE METABOLIC PANEL Routine 12/04/2024 6:04 AM EST Hyperlipidemia, unspecified Essential (primary) hypertension Type 2 diabetes mellitus without complications (CMS/HCC) Other fci (current) drug therapy documented in this encounter [...] [facility] [address] [place] [address], * (ABNORMAL) Hemoglobin A1c (12/04/2024 6:04 AM [...] [facility] [address] [place] [address], [place] [phone] * Thyroid stimulating hormone (12/04/2024 6:04 AM EST) Pathologist [facility] TSH 2.31 0.40 - 4.00 mcIU/mL LAB CHEMISTRY METHOD 12/04/2024 12:07 PM [facility] Blood Venous blood specimen / Unknown Venipuncture / Unknown 12/04/2024 6:04 AM EST 12/04/2024 10:12 AM EST us Subhash Garcia MD LAB BLOOD ORDERABLES Final Result Performing Organization Address City/[facility]/ZIP Co de Phone Number [facility] [address] [place] [address], [place] [phone] * (ABNORMAL) Lipid panel with reflex to direct LDL (12/04/2024 6:04 AM EST) [facility] Cholesterol 98 0 - 200 mg/dL LAB CHEMISTRY METHOD 12/04/2024 12:42 PM [facility] Triglycerides 172(H) 0 - 150 mg/dL LAB CHEMISTRY METHOD 12/04/2024 12:42 PM [facility] HDL 34(L) >=40 mg/dL LAB CHEMISTRY METHOD 12/04/2024 12:42 PM [facility] LDL Calculated 30 0 - 100 mg/dL LAB CHEMISTRY METHOD 12/04/2024 12:42 PM [facility] VLDL Cholesterol Allen 34.4 mg/dL LAB CHEMISTRY METHOD 12/04/2024 12:42 PM [facility] Non HDL Chol. (LDL+VLDL) 64 <145 mg/dL LAB CHEMISTRY METHOD 12/04/2024 12:42 PM [facility] Chol/HDL Ratio 2.9 0.0 - 4.4 LAB CHEMISTRY METHOD 12/04/2024 12:42 PM [facility] Blood Venous blood specimen / Unknown Venipuncture / Unknown 12/04/2024 6:04 AM EST 12/04/2024 10:12 AM EST Subhash Garcia MD LAB BLOOD ORDERABLES Final Result [facility] [address] [place] [address], [place] [phone] * (ABNORMAL) Comprehensive metabolic panel (12/04/2024 6:04 AM EST) Sodium 139 133 - 145 mmol/L LAB CHEMISTRY METHOD 12/04/2024 12:42 PM [facility] Potassium 5.0 3.5 - 5.5 mmol/L LAB CHEMISTRY METHOD 12/04/2024 12:42 PM [facility] Chloride 105 96 - 110 mmol/L LAB CHEMISTRY METHOD 12/04/2024 12:42 PM [facility] CO2 27 21 - 32 mmol/L LAB CHEMISTRY METHOD 12/04/2024 12:42 PM [facility] Anion Gap 7 3 - 11 LAB CHEMISTRY METHOD 12/04/2024 12:42 PM [facility] Glucose 161(H) 70 - 100 mg/dL LAB CHEMISTRY METHOD 12/04/2024 12:42 PM [facility] BUN 12 5 - 25 mg/dL LAB CHEMISTRY METHOD 12/04/2024 12:42 PM [facility] Creatinine 0.63 0.50 - 1.10 mg/dL LAB CHEMISTRY METHOD 12/04/2024 12:42 PM [facility] eGFR 98 >=60 mL/min/1. 73m2 LAB CHEMISTRY METHOD 12/04/2024 12:42 PM [facility] Comment:Calculation based on the Chronic Kidney Disease Epidemiology Collaboration (CKD-EPI) equation refit without adjustment for race. BUN/Creatinine Ratio 19.0 LAB CHEMISTRY METHOD 12/04/2024 12:42 PM [facility] Calcium 9.1 8.5 - 10.5 mg/dL LAB CHEMISTRY METHOD 12/04/2024 12:42 PM [facility] AST (SGOT) 17 10 - 42 unit/L LAB CHEMISTRY METHOD 12/04/2024 12:42 PM [facility] ALT (SGPT) 29 10 - 60 unit/L LAB CHEMISTRY METHOD 12/04/2024 12:42 PM [facility] Alkaline Phosphatase 95 42 - 121 unit/L LAB CHEMISTRY METHOD 12/04/2024 12:42 PM [facility] Total Protein 6.4 6.0 - 8.0 g/dL LAB CHEMISTRY METHOD 12/04/2024 12:42 PM [facility] Albumin 3.7 3.2 - 5.0 g/dL LAB CHEMISTRY METHOD 12/04/2024 12:42 PM [facility] Total Bilirubin 0.5 0.0 - 1.4 mg/dL LAB CHEMISTRY METHOD 12/04/2024 12:42 PM [facility] Blood Venous blood specimen / Unknown Venipuncture / Unknown 12/04/2024 6:04 AM EST 12/04/2024 10:12 AM EST us Subhash Garcia MD LAB BLOOD ORDERABLES Final Result [facility] [address] [place] [address], * (ABNORMAL) Complete blood count (12/04/2024 6:04 AM EST) WBC 6.8 4.8 - 10.8 K/mcL LAB HEMETOLOGY METHOD 12/04/2024 11:42 AM [facility] RBC 4.10 3.80 - 4.80 M/mcL LAB HEMETOLOGY METHOD 12/04/2024 11:42 AM [facility] Hemoglobin 12.1 11.5 - 16.0 g/dL LAB HEMETOLOGY METHOD 12/04/2024 11:42 AM [facility] Hematocrit 38.2 35.0 - 47.0 % LAB HEMETOLOGY METHOD 12/04/2024 11:42 AM [facility] MCV 92.7 79.0 - 98.0 FL LAB HEMETOLOGY METHOD 12/04/2024 11:42 AM [facility] MCH 29.4 27.0 - 32.0 pcg LAB HEMETOLOGY METHOD 12/04/2024 11:42 AM [facility] MCHC 31.7(L) 32.0 - 37.0 g/dL LAB HEMETOLOGY METHOD 12/04/2024 11:42 AM [facility] RDW 12.8 11.0 - 15.0 % LAB HEMETOLOGY METHOD 12/04/2024 11:42 AM [facility] Platelets 314 130 - 400 K/mcL LAB HEMETOLOGY METHOD 12/04/2024 11:42 AM [facility] MPV 9.7 7.0 - 11.0 FL LAB HEMETOLOGY METHOD 12/04/2024 11:42 AM [facility] NRBC 0.0 <1.0 % LAB HEMETOLOGY METHOD 12/04/2024 11:42 AM [facility] NRBC Absolute 0.00 <0.10 K/mcL LAB HEMETOLOGY METHOD 12/04/2024 11:42 AM [facility] Blood Venous blood specimen / Unknown Venipuncture / Unknown 12/04/2024 6:04 AM EST 12/04/2024 10:12 AM EST Subhash Garcia MD LAB BLOOD ORDERABLES Final Result [facility] [address] [place] [address], documented in this encounter Visit Diagnoses Diagnosis Hyperlipidemia, unspecified Essential (primary) hypertension Unspecified essential hypertension Type 2 diabetes mellitus without complications (CMS/HCC V24, CMS/HCC V28) Other diploma maker (current) drug therapy documented in this encounter Care Teams Centerless Grinder Relationship Specialty Start Date End Date Subhash Garcia MD [address] [place] [phone] PCP - General Internal Medicine 09/17/24 documented as of this encounter
--- OUTSIDE RECORDS SUMMARY | 2025-10-09 08:48 | XMS_ITS | Encounter Summary ---
Author Organization [employer] Address [address] [facility] [address] [place] [address] Care Team Providers Care Voucher Examiner Name Role Phone Abrahan Cabezas DDS Primary Care Provider [phone] Jaime Page Unavailable Jaime Page Unavailable Jaime Page Primary Care Provider [phone] Encounter Details Date Type Department Care Team [...] Description 10/15/2025 8:00 AM EST Office Visit [facility] ADULT DENTAL [address] [place] [address] Sherly Garza DDS [address] [place] [address] 03/12/2026 8:45 AM EDT Office Visit [facility] ADULT DENTAL [address] [place] [address] Gustavo Shaw documented as of this encounter Visit Diagnoses Not on filedocumented in this encounter Care Teams Voucher Examiner Relationship Specialty Start Date End Date Abrahan Cabezas MUSA [address] [place] [address] PCP - General Dentist 08/13/22 03/10/23 Jaime Page PA [address] [place] [phone] PCP - General Family Medicine 03/11/23 Jaime Page PA [address] [place] [id number] Family Medicine 08/13/22 03/10/23 Jaime Page PA [address] [place] [phone] Family Medicine 08/13/22 03/10/23 documented as of this encounter
--- OUTSIDE RECORDS SUMMARY | 2025-10-09 08:48 | XMS_ITS | Encounter Summary ---
Author Organization [employer] Address [address] [facility] 7t [place] [address] Care Team Providers Care Access Nurse Name Role Phone Jaime Page Primary Care Provider [phone] Reason for Visit * Reason Onset Date Comments case back from lab? 07/18/2025 Encounter Details Date Type Department Care Team (Late st Contact Info) Description 07/18/2025 Telephone [facility] ADULT DENTAL [address] [place] [address] Sherly Garza DDS [address] [place] [address] case back from lab? Social History Tobacco [...] the past 12 months, has t he [employer] gas, oil or water [employer] threatened to shut off services in your [...] Description 10/15/2025 8:00 AM EST Office Visit [facility] ADULT DENTAL [address] [place] [address] Sherly Garza DDS [address] [place] [address] 03/12/2026 8:45 AM EDT Office Visit [facility] ADULT DENTAL [address] [place] [address] Gustavo Shaw documented as of this encounter Visit Diagnoses Not on filedocumented in this encounter Care Teams Access Nurse Relationship Specialty Start Date End Date Jaime Page PA [address] [place] [phone] PCP - General Family Medicine 03/11/23 documented as of this encounter
--- OUTSIDE RECORDS SUMMARY | 2025-10-09 08:48 | XMS_ITS | Encounter Summary ---
Author Organization [employer] Address [address] [place] [address] Care Team Providers Care Administrative Underwriter Name Role Phone Subhash Garcia MD Primary Care Provider [phone] Encounter Details Date Type Department Care Team (Late st Contact Info) Description 02/04/2025 Lab Requisition [facility] - Main Lab [address] [facility] [address] [place] [address] Subhash Garcia MD [address] [place] [address] [id number] Type 2 diabetes mellitus without complications (CMS/HCC [...] V28) documented in this encounter Care Teams Administrative Underwriter Relationship Specialty Start Date End Date Subhash Garcia MD [address] [place] [phone] PCP - General Internal Medicine 09/17/24 documented as of this encounter
--- OUTSIDE RECORDS SUMMARY | 2025-10-09 08:48 | XMS_ITS | Encounter Summary ---
Author Organization [facility] Address [address] [place] [address] Care Team Providers Care Lofter Name Role Phone Subhash Garcia MD Primary Care Provider [phone] Encounter Details Date Type Department Care Team (Late st Contact Info) Description 10/08/2025 Lab Requisition [facility] - Main Lab [address] [place] [address] Subhash Garcia MD [address] [place], [place] [phone] Type 2 diabetes mellitus without complications (CMS/HCC [...] V28) documented in this encounter Results * Lavender tube (10/08/2025 7:54 AM EST) Extra Tube Hold for add-ons. 10/08/2025 3:01 PM EST [facility] Comment:Auto resulted. Blood Venous blood specimen / Unknown 10/08/2025 7:54 AM EST 10/08/2025 9:57 AM EST Subhash Garcia MD LAB BLOOD ORDERABLES Final Result [facility] LAB [address] [place] [address], documented in this encounter Visit Diagnoses Diagnosis Type 2 diabetes mellitus without complications (CMS/HCC V24, CMS/HCC V28) documented in this encounter Care Teams Lofter Relationship Specialty Start Date End Date Subhash Garcia MD [address] [place] [phone] PCP - General Internal Medicine 09/17/24 documented as of this encounter
--- OUTSIDE RECORDS SUMMARY | 2025-10-09 08:48 | XMS_ITS | Encounter Summary ---
Author Organization [employer] Address [address] [facility] 7t [place] [address] Care Team Providers Care Healthcare Educator Name Role Phone Jaime Page Primary Care Provider [phone] Encounter Details Date Type Department Care Team (Late st Contact Info) Description 05/03/2024 [facility] [address] [place] [address] Jaime Page PA [address] [place], [place] [phone] Mixed incontinence Social History Tobacco Use Types [...] Description 10/15/2025 8:00 AM EST Office Visit [facility] ADULT DENTAL [address] [place] [address] Sherly Garza DDS [address] [place] [address] 03/12/2026 8:45 AM EDT Office Visit [facility] ADULT DENTAL [address] [place] [address] Gustavo Shaw documented as of this encounter Procedures Procedure [...] (male)(female) documented in this encounter Care Teams Healthcare Educator Relationship Specialty Start Date End Date Jaime Page PA [address] [place] [phone] PCP - General Family Medicine 03/11/23 documented as of this encounter
--- OUTSIDE RECORDS SUMMARY | 2025-10-09 08:48 | XMS_ITS | Clinical Summary ---
Author Organization [employer] Address [address] [facility] 7[address] [place] [address] Care Team Providers Care Application Integration Engineer Name Role Phone Jaime Page Primary Care Provider [phone] Allergies No known active allergies Medications Blood [...] Active Additional Information Patient not taking.Reported on 08/23/2025 ARIPiprazole (Abilify) 10 MG tabletIndications: Schizophreniform disorder (CMS/HCC) ([facility]) Take 1 tablet (10 mg) by mouth in the morning. 90 tablet 06/27/20 23 Active lisinopril 10 MG tabletIndications: Primary hypertension Take 1 tablet (10 mg) by mouth in the morning. 90 tablet 06/27/20 23 Active metFORMIN XR (Glucophage-XR) 500 MG 24 hr tabletIndications: Type 2 diabetes mellitus with hyperglycemia, without long-term current use of insulin ([facility]) Take 3 tablets (1,500 mg) by mouth with evening meal. Do not crush, chew, or split. 270 tablet 06/27/20 23 Active rivastigmine (Exelon) 9.5 MG/24HRIndications :Major neurocognitive disorder (CMS/HCC) ([facility]) Place 1 patch on the skin in the morning. 90 patch 06/27/20 Active simvastatin (Zocor) 20 MG tabletIndications: Type 2 diabetes mellitus with hyperglycemia, without long-term current use of insulin ([facility]) Take 1 tablet (20 mg) by mouth at bedtime. 90 tablet 06/27/20 Active LORazepam (Ativan) 0.5 MG tabletIndications: Schizophreniform disorder (CMS/[facility]) (HCC) Take 1 tablet (0.5 mg) by [...] hyperglycemia, without long-term current use of insulin ([facility]) Inject 1.5 mg under the [...] will continue to monitor. Major neurocognitive disorder ([facility]) 01/22/20 Assessment & Plan (06/27/2023 8:41 AM EDT): Seemingly stable on presentation today. Bridge scripts provided. Schedule w/ neurology. Alzheimer's type dementia ([facility]) 01/21/2023 Assessment & Plan (01/21/2023 2:33 PM EDT): Patient currently appearing clinically well and stable status post 3-month hospitalization. Continue current med regimen, and referral placed for specialist care. Reviewed hospital discharge documentation and reconciled med list. Pt and aide from [facility] are unsure if they are going to continue with PCP at [facility] (if so then will schedule transfer visit with either myself or another provider), or establish with a practice more local to [facility]. 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 We will look out for results and dose adjust meds as needed. Encounters Date Type Department Care Team Description 10/02/2025 9:30 AM EST Office Visit [facility] [address] [place] [address] Sherly Garza DDS 09/11/2025 8:00 AM EST Office Visit [facility] [address] [place] [address] Gustavo Sahw Dental calculus (Primary Dx) 08/23/2025 10:30 AM EST Office Visit [facility] [address] [place] [address] Sherly Garza DDS 08/06/2025 10:15 AM EDT Office Visit [facility] [address] [place] [address] Sherly Garza DDS 07/18/2025 Telephone [facility] [address] [place] [address] Sherly Garza DDS case back from lab? from Last 3 Months Immunizations Immunization Administration [...] Pressure 100/70 10/02/2025 9:24 AM EST Pulse 70 09/11/2025 8:09 AM EST Temperature 36.1 C (96.9 F) 06/27/2023 7:44 [...] Description 10/15/2025 8:00 AM EST Office Visit [facility] [address] [place] [address] Sherly Garza DDS [address] [place] [address] 03/12/2026 8:45 AM EDT Office Visit [facility] [address] [place] [address] Gustavo Shaw Health Maintenance Due Date Last Done Comments CT Colonography 1957 FIT DNA/Cologuard 1957 FIT 1957 FOBT 1957 Sigmoidoscopy 1957 Diabetes: Foot Exam 12/22/1967 Eye Exam 12/22/1967 Alcohol/Substance Use Screening 1969 Mammogram 07/01/2021 07/01/2020, 06/17, 05/31/2019, Additional history exists Depression Screening 06/27/2024 06/27/2023, 06/27/20 23 Diabetes: Urine Protein Screening 06/27/2024 06/27/2023, 01/04/2022, 01/04/2022, Additional history exists Lipid Panel 06/27/2024 06/27/2023, 07/18, 03/13/2021, Additional history exists SDOH Screening 06/27/2024 06/27/2023 COVID-19 Vaccine ( season) 2025 07/25/2024, 08/15/2023, 01/21/2023, Additional history exists Influenza Vaccine (#1) 2025 , 07/13/2023, 06/12/2022, Additional history exists Colonoscopy 07/21/2025 07/21/2020, 02/2020, 10/07/2014 Colorectal Cancer Screening 07/21/2025 Diabetes: Hemoglobin A1C 12/16/2025 025, 06/11/2025, 03/05/2025, Additional history exists Dental Oral Exam 02/21/2026 08/23/2025, , 06/28/2019, Additional history exists Dental Prophylaxis 03/12/2026 09/11/2025, 0 06/28/2019, 05/06/2018, Additional history exists Pneumococcal Vaccine: 50+ Years (3 of 3 - PCV20 or PCV21) 04/15/2026 04/15/2021, 04/05/2019, 05/18/2014, Additional history exists HPV/Cotest 07/08/2026 07/08/2021 Pap Smear 07/08/2026 07/08/2021, 07/08/2021 Dental X-Ray: Bitewings 08/24/2026 08/23/20, 11/11/2021, 06/28/2019, Additional history exists Tobacco Screening 10/02/2026 10/02/2025 Dental X-Ray: Full Mouth 08/24/2028 025, 11/11/2021, 09/14/2017, Additional history exists DTaP/Tdap/Td Vaccines (3 - Td or Tdap) [...] on patient's age to complete this topic Goals Goal Patient Goal Type Associated Problems Recent Progress Patient-Stated? Author Help patients manage their type 2 diabetes Care Plan Help patients manage their type 2 diabetes No Sherly Garza DDS Patient has chronic kidney disease Care Plan Patient has chronic kidney disease No Sherly Garza DDS Patient has chronic kidney disease Care Plan Patient has chronic kidney disease No Gustavo Shaw Patient has chronic kidney disease Care Plan Patient has chronic kidney disease No Huang Gibson Weekly blood pressure task Care Plan Weekly blood pressure task No Sherly Garza DDS Procedures Procedure Name Priority Date/Time Associated Diagnosis Comments CASE PRESENTATION, DETAILED AND EXTENSIVE TREATMENT PLANNING Routine 10/02/2025 9:30 AM EST 5 DO RESIN-BASED COMPOSITE - 2 SURF, POSTERIOR Routine 10/02/2025 9:30 AM EST 20 SHANAE RESIN-BASED COMPOSITE - 2 SURF, POSTERIOR Routine 10/02/2025 9:30 AM EST ORAL HYGIENE INSTRUCTIONS Routine 09/11/2025 8:00 AM EST Full PROPHYLAXIS - ADULT Routine 09/11/2025 8:00 AM EST CASE PRESENTATION, DETAILED AND EXTENSIVE TREATMENT PLANNING Routine 09/11/2025 8:00 AM EST PERIODIC ORAL EVALUATION - ESTABLISHED PATIENT Routine 08/23/2025 10:30 AM EST INTRAORAL - COMPLETE SERIES OF RADIOGRAPHIC IMAGES Routine 08/23/2025 10:30 AM EST CASE PRESENTATION, DETAILED AND EXTENSIVE TREATMENT PLANNING Routine 08/23/2025 10:30 AM EST COMPREHENSIVE PERIODONTAL EVALUATION - NEW OR ESTABLISHED PATIENT Routine 08/23/2025 10:30 AM EST 7 CROWN - PORCELAIN/CERAMIC Routine 08/23/2025 10:30 AM EST CASE PRESENTATION, DETAILED AND EXTENSIVE TREATMENT PLANNING Routine 08/06/2025 10:15 AM EDT 7 CROWN PREP Routine 08/06/2025 10:15 AM EDT MICROALBUMIN, RANDOM (W CREAT) Routine 06/27/2023 8:43 AM EDT LIPID PANEL, STANDARD Routine 06/27/2023 8:34 AM EDT HEMOGLOBIN A1C Routine 06/27/2023 8:33 AM EDT HM HEPATITIS C ANTIBODY Routine 08/10/2021 THIN PREP PAP, WITH HPV, GENOTYPE IF HPV+ Routine 07/08/2021 2:40 PM EDT HM PAP/HPV Routine 07/08/2021 HM COLONOSCOPY Routine 07/21/2020 HM MAMMOGRAPHY Routine 07/01/2020 from Last 3 Months or Most Recently Relevant to Health Maintenance Results * Microalbumin, Random Urine w/Creatinine (06/27/2023 8:43 AM EDT) Micro-Albumin <12.0 (<20) MG/L [facility] Comment: The urine microalbumin test is designed to monitor renal function. When screening for Bence Rose proteinuria, urine electrophoresis is recommended. Malb/Creat Ratio Unable to calculate (0-20) MG/GM [facility] Urine Creat For Micro Albumin 54.4 MG/DL [facility] Comment: Testing performed or reported by [facility], a Service of [facility], [address] [place] [address] Cornel Locke MD, Drill Operator Pneumatic [facility]# [id number] 06/27/2023 8:43 AM EDT 06/27/2023 8:45 AM EDT us Jaime DE JESUS LAB URINE ORDERABLES Final Resul t [facility] [address] [address] * (ABNORMAL) Lipid Panel, Standard (06/27/2023 8:34 AM EDT) Cholesterol, Total 114 (<200) MG/DL [facility] Triglyceride (mg/dL) in Serum/Plasma 155(H) (<150) MG/DL [facility] HDL Cholesterol 38(L) (>39) MG/DL [facility] LDL Cholesterol, Calculated 45 (0-130) MG/DL [facility] Non HDL Chol. (LDL+VLDL) 76 (<160) MG/DL [facility] Comment: Testing performed or reported by [facility], a Service of [address] [address] Cornel Locke MD, Drill Operator Pneumatic CLIA# [id number] 06/27/2023 8:34 AM EDT 06/27/2023 8:46 AM EDT Jaime DE JESUS LAB BLOOD ORDERABLES Final Resul t [address] [address] * (ABNORMAL) Hemoglobin A1c (06/27/2023 8:33 AM EDT) Hemoglobin A1C 7.6(H) (4.0-5.6) % [facility] Comment: MONITORING: In known diabetic patients, hemoglobin A1c targets should be discussed with health care provider. DIAGNOSTIC USE: The [place] [employer] (ADA) and the World Health [...] Supplement 1 Testing performed or reported by [facility], a Service of [facility], [address] [place] [address] Cornel Locke MD, Drill Operator Pneumatic [place]# [id number] 06/27/2023 8:33 AM EDT 06/27/2023 8:45 AM EDT Jaime DE JESUS LAB BLOOD ORDERABLES Final Resul t [facility] [address] [place] [address] * Hepatitis C Antibody (08/10/2021) Pathologist [facility] Hepatitis C Antibody Nonreactive Blood Historical Provider HEALTH MAINTENANCE Final Result * THIN PREP PAP, WITH HPV, GENOTYPE IF HPV+ (07/08/2021 2:40 PM EDT) Pathologist [facility] See Report [facility] 07/08/2021 2:40 PM EDT Historical Provider LAB CYTOLOGY ORDERABLES F inal Result [facility] [address] * Pap Smear (07/08/2021) Pathologist [facility] Pap smear NILM, HPV NEGATIVE Historical Provider HEALTH MAINTENANCE Final Result * Colonoscopy (07/21/2020) Pathologist [facility] Colonoscopy REPEAT IN 5 YEARS Historical Provider HEALTH MAINTENANCE Final Result * Mammography (07/01/2020) Pathologist [facility] Mammogram BIRADS 1 NEGATIVE Anatomical Region Laterality Modality Other Historical Provider HEALTH MAINTENANCE Final Result from Last 3 Months or Most Recently Relevant to Health Maintenance Additional Health Concerns Active Problems Noted Date Diagnosed Date Help patients manage their type 2 diabetes 08/28 Patient has chronic kidney disease 08/28/2025 Patient has chronic kidney disease 09/10/2025 Patient has chronic kidney disease 10/02/2025 Weekly blood pressure task 10/02/2025 Insurance [facility] STANDARD MEDICARE [facility] STANDARD [facility] [place] [address] [place] [address] [facility] MEDICAID STAND ADULT * Guarantor: Jennifer Mccullough Account Type Relation to Patient Date of Phone [place] [address] Care Teams Application Integration Engineer Relationship Specialty Start Date End Date Jaime Page PA [address] [place] [id number] PCP - General Family Medicine 03/11/23
--- OUTSIDE RECORDS SUMMARY | 2025-10-09 08:48 | XMS_ITS | Encounter Summary ---
Author Organization [employer] Address [address] [facility] [address] [place] [address] Care Team Providers Care Patient Registration Specialist Name Role Phone Jaime Page Primary Care Provider [phone] Reason for Visit * Reason Onset Date Comments release form 12/11/2024 Encounter Details Date Type Department Care Team ([facility] st Contact Info) Description 12/11/2024 Telephone [facility] [address] [place] [address] Jennifer Glaser DDS release form Social History [...] scanned in yesterday. It was sent to [facility]. Release of records for dental treatment for patient. Nursing from facility patient is in is looking for notes on patients visit to be faxed [phone] documented in this encounter Plan of Treatment Upcoming Encounters Date Type Department Care Team (Late st Contact Info) Description 10/15/2025 8:00 AM EST Office Visit [facility] [address] [place] [address] Sherly Garza, MUSA [address] [place] [address] 03/12/2026 8:45 AM EDT Office Visit [facility] [address] [place] [address] Gustavo Shaw documented as of this encounter Visit Diagnoses Not on filedocumented in this encounter Care Teams Patient Registration Specialist Relationship Specialty Start Date End Date Jaime Page PA [address] [place] [id number] PCP - General Family Medicine 03/11/23 documented as of this encounter
== END 2025-10-09 09:22 | disposition home or self-care (01) ==
LOC: HO.HUSH 08:44
PROVIDERS: PCP Radiology Radiation Oncology; Visit Provider Nurse Practitioner Family
DX: N28.1 Cyst of kidney, acquired (principal); R39.9 Unspecified symptoms and signs involving the genitourinary system; Z13.9 Encounter for screening, unspecified
CPT/HCPCS: 99213; G2211

== ENCOUNTER → 2025-10-09 08:43 | Outpatient (BNVA) | payer MEDICARE, MEDICAID, SELFPAY | PROVIDERS: PCP Radiology Radiation Oncology; Visit Provider Nurse Practitioner Family | DX: N28.1 Cyst of kidney, acquired (principal) | CPT/HCPCS: 51798; 81003; 99212 ==